=== PATIENT | male | born 1965 | race Caucasian/White ===

== ENCOUNTER → 2025-02-16 | Outpatient (CLI) | payer BC, SELFPAY ==
[2025-02-16 13:03] LABS: Hematocrit 41.6 % (40-54); Hemoglobin 14.4 g/dL (13.0-16.5); Immature Granulocytes Count 0.020 X10^3/uL (0.0-0.0); Mean Corp Hgb Conc 34.6 g/dL (32-36); Mean Corpuscular Volume 87.6 fL (80-94); NRBC Flagged by Analyzer 0 % (0-5); POSITIVE COUNT YES; RBC Distribution Width CV 11.8 % (11.6-14.6); RBC Distribution Width SD 37.6 fl (35.1-43.9); Red Blood Count 4.75 M/mm3 (4.6-6.2); White Blood Count 5.9 K/mm3 (4.4-11.0)
[2025-02-16 13:47] LABS: Differential Indicated SCAN CRITERIA MET
[2025-02-16 13:59] LABS: Anion Gap 11 (5-15); BUN 15 mg/dL (4-19); BUN/Creat Ratio 13.8 RATIO (10-20); Calcium,Total 9.6 mg/dL (7.6-11.0); Carbon Dioxide 25.7 mmol/L (21.0-32.0); Chloride 102 mmol/L (98-108); Glucose 93 mg/dL (70-99); Potassium 4.5 mmol/L (3.3-5.1)
== END | disposition home or self-care (01) ==
LOC: LAB 12:38
PROVIDERS: PCP Family Medicine; Referring Provider Internal Medicine Cardiovascular Disease; Visit Provider Internal Medicine Cardiovascular Disease
DX: R93.1 Abnormal findings on diagnostic imaging of heart and coronary circulation (principal); E78.5 Hyperlipidemia, unspecified; R01.1 Cardiac murmur, unspecified
CPT/HCPCS: 36415; 80048; 85025

== ENCOUNTER 2025-02-25 07:03 | Outpatient (CLI) | payer BC, SELFPAY ==
--- NOTE | 2025-02-25 07:07 | ECHOTEE_ITS ---
Reason For Study Reason For Study: Murmur, Mitral Insufficiency Medication BHUMIKA probe 6VT-D (SN [id number]) passed without difficulty. No complications were noted. Cetacaine Topical Honeydew given X3 orally. Versed 2 mg given slow IVP. Fentanyl 50 mcg given slow IVP. Performed a rapid injection of agitated mix of 9 cc saline and 1cc air to assess for atrial septal defect. Left Ventricle Normal LV size. The left ventricular ejection fraction is 60 %. No regional wall motion abnormalities noted. Right Ventricle Normal RV size. Normal systolic function. Atria Intact atrial septum. Normal left atrium. No thrombus is detected in the left atrial appendage. Normal right atrium. Probable chiari network. Mitral Valve Severe mitral valve prolapse, posterior leaflet. Moderately severe (3+) anteriorly directed mitral valve insufficiency. Tricuspid Valve Normal tricuspid valve. Aortic Valve Trisinus/trileaflet aortic valve. Pulmonic Valve Normal pulmonic valve. Vessels Normal aortic root. Normal arch. The pulmonary artery is normal size. Pulmonary venous flow normal. Pericardium No pericardial effusion. ECHO/Echo Transesophageal (BHUMIKA) Interpretation Summary Normal LV size. The left ventricular ejection fraction is 60 %. Intact atrial septum Severe mitral valve prolapse, posterior leaflet Moderately severe (3+) anteriorly directed mitral valve insufficiency. No thrombus is detected in the left atrial appendage. Ordering Physician: He Baeza Referring Physician: Oli Thompson Performed By: Amanda Mills RDCS
--- OUTSIDE RECORDS SUMMARY | 2025-02-25 07:15 | XMS RPT_ITS | CCD ---
Author Organization [facility] Care Team Providers Care Investigator Welfare Name Role Phone Cee Thompson MD Primary Care Provider Cee Tohmpson MD Primary Care Provider Podlogar GR[employer] 9 [employer]RU 12 VISITING TEACHER.DRIER HELPER, Asuncion Unavailable Knoble GR[employer] 12 VISITING TEACHER.DRIER HELPER, Samia Unavailable Donna LOMBARDI, Dr. Allison Primary Care Provider Dr. Keegan Thompson MD Referring Provider Aryan LOMBARDI, Dr. Cutler Attending Provider [phone] CEE THOMPSON Primary Care Unavailab le ASUNCION LEYVA Referring Unavailable CEE THOMPSON Primary Care Unavailab le CEE THOMPSON Attending Unavailab le CEE THOMPSON Primary Care Unavailab le CEE THOMPSON Referring Unavailab le CEE THOMPSON Primary Care Unavailab le CEE THOMPSON Referring Unavailab le CEE THOMPSON Primary Care Unavailab AIDA Mclaughlin Attending Unavailable CEE THOMPSON Referring Unavailab le SELF Referring Unavailable CEE THOMPSON Primary Care Unavailab le CEE THOMPSON Attending Unavailab le CEE THOMPSON Referring Unavailab le CEE THOMPSON Primary Care Unavailab yadira Baeza MD, Dr. Cutler Referring Provider [phone] He Baeza Attending Unavailable Keegan Thompson Primary Care Unavailable Keegan Thompson Referring Unavailable He Baeza Attending Unavailable He Baeza Referring Unavailable Keegan Thompson Primary Care Unavailable He Baeza Attending Unavailable He Baeza Referring Unavailable Keegan Thompson Primary Care Unavailable Medications Current Medications Medication Drug Class(es) Dates Sig (Normalized) Sig (Original) atorvastatin 10 mg oral tablet (13 sources) HMG-CoA Reductase Inhibitor Start: 02-10-2025 take 1 tablet by mouth once daily Atorvastatin (Lipitor) 10 mg tablet Active 10 mg PO daily February 10, 2025 12:00am Start: 11-02-2024 End: 01-31-2025 take 1 tablet by mouth once daily Atorvastatin (Lipitor) 10 mg tablet Active 10 mg PO daily February 10, 2025 12:00am polyethylene glycol 3350 253662 mg / potassium chloride 2970 mg / sodium bicarbonate 6740 mg / sodium chloride 5860 mg / sodium sulfate 47059 mg powder for oral solution (2 sources) Osmotic Laxative Start: 02-08-2025 End: 02-08-2025 peg 3350-Electrolytes (GOLYTELY) 236-22.74-6.74 -5.86 gram suspension Indications: Screening for colon cancer Take 4,000 mL by mouth one time only for 1 dose. Refer to printed prep instructions from your provider. 4000 mL 02/08/2025 02/08/2025 Active Problems Active Problems Problem Classification Problem Date Documented Date Episodic/Chronic Aortic; peripheral; and visceral artery aneurysms (6 sources) Ascending aorta dilatation; Translations: [Thoracic aortic ectasia] Onset: 02-08-2025 02-08-2025 Chronic Disorders of lipid metabolism (8 sources) Mixed hyperlipidemia; Translations: [Mixed hyperlipidemia] Onset: 01-27-2025 11-02-2024 Chronic Fluid and electrolyte disorders (2 sources) Hyperkalemia; Translations: [Hyperkalemia] Onset: 02-04-2025 01-31-2025 Episodic Heart valve disorders (7 sources) Mitral valve regurgitation; Translations: [Nonrheumatic mitral (valve) insufficiency] Onset: 02-18-2025 02-08-2025 Chronic Heart valve disorders (6 sources) Heart murmur; Translations: [Cardiac murmur, unspecified] Onset: 02-08-2025 11-01-2024 Episodic Other and unspecified benign neoplasm (3 sources) Lipoma of right upper limb; Translations: [Benign lipomatous neoplasm of skin and subcutaneous tissue of right arm] 01-27-2025 Episodic Other and unspecified benign neoplasm (3 sources) Lipoma of shoulder; Translations: [Benign lipomatous neoplasm of skin and subcutaneous tissue of left arm] 01-27-2025 Episodic Other and unspecified benign neoplasm (2 sources) Multiple lipomata; Translations: [Benign lipomatous neoplasm, unspecified] 02-10-2025 Episodic Other and unspecified benign neoplasm (1 source) Benign lipomatous neoplasm of skin and subcutaneous tissue of right arm; Translations: [Lipoma of right upper extremity] Onset: 01-27-2025 Episodic Other and unspecified benign neoplasm (1 source) Benign lipomatous neoplasm of skin and subcutaneous tissue of left arm; Translations: [Lipoma of left shoulder] Onset: 01-27-2025 Episodic Other screening for suspected conditions (not mental disorders or infectious disease) (4 sources) Echocardiogram abnormal; Translations: [Abnormal findings on diagnostic imaging of heart and coronary circulation] Onset: 02-08-2025 02-10-2025 Episodic Unclassified (1 source) Patient encounter status 11-01-2024 Past or Other Problems Problem Classification Problem Date Documented Da te Episodic/Chronic Hemorrhoids (12 sources) Thrombosed external hemorrhoids; Translations: [Perianal venous thrombosis] Onset: 11-18-2016 11-18-2016 Episodic Immunizations and screening for infectious disease (4 sources) Patient encounter status; Translations: [Encounter for immunization] Onset: 11-01-2024 11-01-2024 Episodic Malaise and fatigue (2 sources) Fatigue; Translations: [Other fatigue] Onset: 11-01-2024 11-01-2024 Episodic Other and unspecified benign neoplasm (12 sources) Lipoma of skin and subcutaneous tissue (excluding face); Translations: [Benign lipomatous neoplasm of skin and subcutaneous tissue of other sites] Onset: 01-22-2007 01-22-2007 Episodic Results Test Name Value Interpretation Reference Range Facility Absolute lymphocyte countOrd ered By: He Baeza on 02-16-2025 Lymphocytes Auto (Unsp spec) [#/Vol] 1.38 10*3/uL 0.83-4.51 [facility] Absolute neutrophil countOrd ered By: He Aryan on 02-16-2025 Neutrophils (Bld) [#/Vol] 4.0 10*3/uL 2.0-7.7 [facility] Anion gap in Serum or Plasma Ordered By: Daggett Aryan on 02-16-2025 Anion gap [Moles/Vol] 11 mmol/L 5-15 [facility] Automated lymphocyte count a s percentage of total leukocytesOrdered By: He Aryan on 02-16-2025 Lymphocytes/100 WBC Auto (Unsp spec) 23.4 % 19-41 [facility] BUN/creatinine ratioOrdered By: He [facility] on 02-16-2025 Urea nitrogen/Creatinine [Mass ratio] 13.8 mg/mg 10- [facility] Basic Metabolic Profile (BMP )on 02-16-2025 BUN/CRE 13.8 RATIO Normal - [facility] Comment on above: Performed By: #### L 500.2500, L100.0100 #### [facility] [address] [place], [address] Calcium [Mass/Vol] 9.6 mg/dL Normal 7.6-11.0 [facility] Comment on above: Performed By: #### L 500.2500, L100.0100 #### [facility] [address] [place], [address] Chloride [Moles/Vol] 102 mmol/L Normal 98-108 [facility] Comment on above: Performed By: #### L 500.2500, L100.0100 #### [facility] [address] [place], [address] CO2 [Moles/Vol] 25.7 mmol/L Normal 21.0-32.0 [facility] Comment on above: Performed By: #### L 500.2500, L100.0100 #### [facility] [address] [place], [address] Creatinine [Mass/Vol] 1.09 mg/dL Normal 0.70-1.20 [facility] Comment on above: Performed By: #### L 500.2500, L100.0100 #### [facility] [address] [place], [address] GAP 11 Normal 5-15 [facility] Comment on above: Performed By: #### L 500.2500, L100.0100 #### [facility] [address] [place], [address] GFR/1.73 sq M.predicted among non-blacks MDRD (S/P/Bld) [Vol rate/Area] 78 mL/min/{1.73_m2} Normal >60 [facility] Comment on above: Result Comment: mL/m in/1.73m2 CKD-EPI Creatinine Equation (2020) Performed By: #### L 500.2500, L100.0100 #### [facility] [address] [place], [address] Glucose [Mass/Vol] 93 mg/dL Normal 70-99 [facility] Comment on above: Performed By: #### L 500.2500, L100.0100 #### [facility] [address] [place], [address] Potassium [Moles/Vol] 4.5 mmol/L Normal 3.3-5.1 [facility] Comment on above: Result Comment: Hemo lysis present, Results??could be affected. ?? Performed By: #### L 500.2500, L100.0100 #### [facility] [address] [place], [address] Sodium [Moles/Vol] 138 mmol/L Normal 133-145 [facility] Comment on above: Performed By: #### L 500.2500, L100.0100 #### [facility] [address] [place], [address] Urea nitrogen [Mass/Vol] 15 mg/dL Normal 4-19 [facility] Comment on above: Performed By: #### L 500.2500, L100.0100 #### [facility] [address] [place], [address] Basophil percentageOrdered B y: He Baeza on 02-16-2025 Basophils/100 WBC (Bld) 0.8 % 0-1 [facility] CBC W/Diff, Automatedon 07 PLT EST ADEQUATE Normal ADEQ [facility] Comment on above: Performed By: #### L 500.2500, L100.0100 #### [facility] [address] [place], [place], [address] [facility]-20[facility] ([id number]) 1965 M Date Time Provider Department 02/16/25 CEE THOMPSON [facility] During your visit today, we recorded the following information about you: Cee Thompson MD 02/16/2025 12:46 PM Signed 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 Planning on heart cath and then repair. Allergies As of Date: 02/16/2025 (No Known Allergies) Date Reviewed: 02/08/2025 Reviewed by: Aida Vanegas APRN.[facility] - Fully Assessed Prescriptions as of 02/16/2025 - atorvastatin (LIPITOR) 10 mg tablet Take 1 tablet by mouth once daily. Problem List As Of Date 02/16/2025 Noted Resolved LIPOMA OTHER SKIN AND SUBCUTANEOUS [D17.39] 01/22/2007 External hemorrhoid, thrombosed [K64.5] 11/18/2016 Ascending aorta dilation [I77.810] 02/08/2025 Mitral valve regurgitation [I34.0] Encounter Status:Closed by CEE THOMPSON on 02/16/25 Normal [facility] Carbon dioxide, total [Moles /volume] in Central venous bloodOrdered By: He Baeza on 02-16-2025 CO2 [Moles/Vol] 25.7 mmol/L 21.0-32.0 [facility] Cardiology Visit Reporton Cardiology Visit Report [facility] [address] [place] [address] OFFICE VISIT Date of Service: 02/16/25 MR#: [id number] Acct: [id number] Name: MIGUEL MONACO Jr. Rep #: [id number] : 1965 Provider: Dr. He Baeza MD Age/Sex: 59/M Location: [facility] Status: Signed HPI HPI History of Present Illness Details: Pleasant 59-year-old man with no previous cardiac history who said that his primary care physician heard a murmur and so sent him for an echocardiogram. He denies any chest pain or shortness of breath or paroxysmal nocturnal dyspnea pedal edema he has had no neck arm or jaw discomfort suggest angina he exercises routinely and regularly on the treadmill. His lipid profile has demonstrated total cholesterol 176 HDL of 66 and LDL of 400. The echocardiogram did demonstrate normal left ventricular size and function with an estimated ejection fraction of 59% normal RV size and function the left atrial size was normal and there was moderately severe holosystolic mitral regurgitation with a possible flail leaflet. This jet was anteriorly directed and there was no evidence of thickening. The aorta was also mildly dilated at 4 cm. He has had no previous hypertension. On his visit here he reiterates no symptoms his electrocardiogram demonstrates sinus bradycardia with a first-degree AV block at a rate of 55 bpm is noted. He does have a 3/6 to 4/6 holosystolic murmur noted at the apex radiating to the axilla. Intake Vital Signs 02/16/25 11:39 Height 6 ft Weight: 182 lb BMI 24.7 BP 142/88 H Blood Pressure Location Lt brachial Position Sitting Respiration 16 Pulse 57 L Pulse Source Monitor Intake Visit Reasons: ABN ECHO (DONNA) Installation Tech Required: No Accompanied by: Significant Other Is patient in pain?: No Allergies No Known Allergies Allergy (Verified 02/16/25 11:42) Medications ???Medication ???Instructions ???Recorded ???Confirmed ???Type atorvastatin 10 mg tablet (Lipitor) 10 mg PO QDAY 02/10/25 02/16/25 History PFSH Medical History Abnormal echocardiogram Hyperlipidemia Multiple lipomas Systolic murmur Surgical History History of repair of anterior cruciate ligament of right knee Family History Grandfather Cancer Aunt Colon cancer Social History Smoking Status: Never smoker alcohol intake: current alcohol intake frequency: a few times a month substance use type: does not use ROS Const Const: Positive for fatigue; Negative for weakness, headache(s), daytime sleepiness or difficulty sleeping ENT ENT: Negative for headache(s), dizziness or Nosebleed/epistaxis Cardio Chest Pain: No Palpitations: No Edema: None Resp Respiratory: Negative for SOB with activity, SOB at rest, SOB orthopnea SOB lying down or Cough GI GI: Negative nausea, vomiting or heartburn Neuro Neuro: Negative for dizziness, lightheadedness, near syncope, headache(s) or weakness Endo Endo: Positive for fatigue Cardiology Exam Const Appearance: cooperative, healthy appearing, no acute distress, well developed and well groomed Nutritional Appearance: average body habitus and well nourished Orientation: alert, awake and oriented x3 Head Head: normal to inspection, normocephalic and atraumatic Ears: hearing grossly normal bilaterally and external ears normal Nose: external nose normal, nares normal, nasal mucous membranes and turbinates normal, septum normal and no nasal discharge Face and Sinus: face symmetric Mouth: oral mucosae normal, tongue normal, oropharynx normal and moist mucous membranes Teeth and gingiva: dentition normal Throat: posterior oropharynx normal, tonsils normal and uvula midline Eyes General: appearance normal, both eyes and all related structures Eyelids: eyelids normal Conjunctivae: conjunctivae normal Pupils: PERRL, normal by confrontation and accommodation normal EOM: EOM intact bilaterally Neck Neck: normal visual inspection, trachea midline and no JVD JVD: +5 Carotids: normal carotid upstroke and bounding pulses Chest Chest inspection: normal inspection of the chest, symmetric chest movement and normal respiratory effort Auscultation: Bilateral: Clear to Auscultation Cardio Palpation: normal PMI Rate: regular rate Rhythm: regular rhythm Heart sounds: S1 normal, S2 normal, murmur and normal, physiologic split S2; Negative rub or gallop Murmur: Grade 4/6, holosystolic, apex and axilla GI GI: normal to inspection, soft, no hepatosplenomegaly and bowel sounds present Neuro General: patient alert, patient awake, patient or (more content not included)... Normal [facility] Chloride assayOrdered By: Kiko Baeza on 02-16-2025 Chloride [Moles/Vol] 102 mmol/L 98-108 [facility] Eosinophil percentageOrdered By: He Baeza on 02-16-2025 Eosinophils/100 WBC (Bld) 0.7 % 0-5 [facility] Erythrocyte distribution wid th ratioOrdered By: He Baeza on 02-16-2025 Erythrocyte distribution width (RBC) [Ratio] 11.8 % 11.6-14.6 [facility] Erythrocyte distribution wid th standard deviationOrdered By: He Baeza on 02-16-2025 Erythrocyte distribution width (RBC) [Ratio] 37.6 fl 35.1-43.9 [facility] Glomerular filtration rate ( GFR) estimation/1.73 sq m using serum, plasma, or whole bOrdered By: He Baeza on 02-16-2025 GFR/1.73 sq M.predicted among non-blacks MDRD (S/P/Bld) [Vol rate/Area] 78 mL/min/{1.73_m2} >60 [facility] Comment on above: mL/min/1.73m2 CKD-EP I Creatinine Equation (2020) Hematocrit Auto (Bld) [Volum e fraction]Ordered By: He Baeza on 02-16-2025 Hematocrit (Bld) [Volume fraction] 41.6 % 40-54 [facility] Hemoglobin measurementOrdere d By: He Baeza on 02-16-2025 Hemoglobin (Bld) [Mass/Vol] 14.4 g/dL 13.0-16.5 [facility] Immature granulocytes/100 WB C Auto (Bld)Ordered By: He Baeza on 02-16-2025 Immature granulocytes/100 WBC (Bld) 0.300 % 0.0-0.9 [facility] Comment on above: IG% - Immature Granu locytes (promyelocytes, myelocytes and metamyelocytes) > 1% indicates that a LEFT SHIFT is Present. MCV (mean corpuscular volume ) determinationOrdered By: Daggett Aryan on 02-16-2025 MCV (RBC) [Entitic vol] 87.6 fL 80-94 [facility] Mean corpuscular hemoglobin (MCH) determinationOrdered By: He Aryan on 02-16-2025 MCH (RBC) [Entitic mass] 30.3 pg 27.0-32.0 [facility] Mean corpuscular hemoglobin concentration (MCHC) determinationOrdered By: He Aryan on 02-16-2025 MCHC (RBC) [Mass/Vol] 34.6 g/dL 32-36 [facility] Monocyte percentageOrdered B y: He Aryan on 02-16-2025 Monocytes/100 WBC (Bld) 6.3 % 0-10 [facility] Neutrophil percentageOrdered By: Daggett Aryan on 02-16-2025 Neutrophils/100 WBC (Bld) 68.5 % 47-70 [facility] Nucleated red blood cell per centageOrdered By: He Aryan on 02-16-2025 Nucleated RBC/100 WBC (Bld) [Ratio] 0 % 0-5 [facility] Platelet countOrdered By: Cy ril Aryan on 02-16-2025 Platelet count See comment [id number] [facility] Comment on above: Please note: For thi s sample, a platelet estimate is provided rather than a platelet count due to platelet clumping. Other parameters associated with this sample are not affected by platelet clumping. If a more accurate platelet count is required, a redraw of the patient will be necessary. Platelet estimateOrdered By: Hewilliam Baeza on 02-16-2025 Platelets LM Ql (Bld) ADEQUATE ADEQ [facility] Potassium measurement (mass/ volume)Ordered By: Hekomal Baeza on 02-16-2025 Potassium (Unsp spec) [Mass/Vol] 4.5 mmol/L 3.3-5.1 [facility] Comment on above: Hemolysis present, R esults could be affected. RBC Auto (Bld) [#/Vol]Ordere d By: He Baeza on 02-16-2025 RBC (Bld) [#/Vol] 4.75 10*6/uL 4.6-6.2 [facility] Serum creatinine measurement (mass/volume)Ordered By: He Aryan on 02-16-2025 Creatinine [Mass/Vol] 1.09 mg/dL 0.70-1.20 [facility] Serum glucose measurement (m ass/volume)Ordered By: Daggett Aryan on 02-16-2025 Glucose [Mass/Vol] 93 mg/dL 70-99 [facility] Serum or plasma calcium cooper urement (mass/volume)Ordered By: He Aryan on 02-16-2025 Calcium [Mass/Vol] 9.6 mg/dL 7.6-11.0 [facility] Serum or plasma urea nitroge n measurement (mass/volume)Ordered By: He Aryan on 02-16-2025 Urea nitrogen [Mass/Vol] 15 mg/dL 4-19 [facility] Sodium levelOrdered By: [facility] komal Baeza on 02-16-2025 Sodium [Moles/Vol] 138 mmol/L 133-145 [facility] White blood cell (WBC) count Ordered By: Daggett Aryan on 02-16-2025 WBC (Bld) [#/Vol] 5.9 10*3/uL 4.4-11.0 [facility] CNOVon 02-08-2025 CNOV Office Visit (GENSWS ) MIGUEL MONACO ([id number]) 1965 M Date Time Provider Department 02/08/25 10:30 AM AIDA VANEGAS During your visit today, we recorded the following information about you: Temperature Pulse Blood pressure Weight 97.5 degrees 57/minute 124/86 82.9 kg Height 1.829 m Aida Vanegas APRN.[facility] 02/08/2025 10:29 AM Signed HISTORY AND PHYSICAL Miguel Monaco : 1965 REFERRING PHYSICIAN: Cee Thompson [address] [facility] [address] CHIEF COMPLAINT: Patient presents with: Consult: colonoscopy HPI: Miguel is a 59 year old male referred for endoscopy. Miguel notes due for colon cancer screening. Miguel denies abdominal pain. Miguel denies diarrhea. Miguel denies constipation. Miguel denies a change in bowel habits. Miguel denies melena. Miguel denies bright red blood per rectum. Miguel denies hemorrhoids. Miguel notes family history of colon issues. Paternal aunt with colon cancer Miguel denies heartburn. Miguel denies dysphagia. Miguel denies a history of ulcers/ peptic ulcer disease. Miguel has undergone prior endoscopy. Last colonoscopy was 08/[address] Dong at [facility]. Sedation: Fentanyl 100 micrograms IV, Midazolam 5 mg IV Impression: - The entire examined colon is normal. - No specimens collected. Current Outpatient Medications Medication Sig atorvastatin (LIPITOR) 10 mg tablet Take 1 tablet by mouth once daily. peg 3350-Electrolytes (GOLYTELY) 236-22.74-6.74 -5.86 gram suspension Take 4,000 mL by mouth one time only for 1 dose. Refer to printed prep instructions from your provider. No current facility-administered medications for this visit. ALLERGIES: Patient has no known allergies. PAST MEDICAL HISTORY Diagnosis Date Hyperlipidemia Multiple lipomas Systolic murmur Tinea cruris PAST SURGICAL HISTORY Procedure Laterality Date COLONOSCOPY FLX DX W/COLLJ SPEC WHEN PFRMD 09/15/2017 Colonoscopy repeat 5 years PAST SURGICAL HISTORY OF 1995 right knee Acl repair REM LESION TRUNK,ARM,LEG 0.6 -1.0CM 02/10/07 Left mid forearm lipoma excision FAMILY HISTORY Problem Relation Age of Onset No Known Problems Mother No Known Problems Sister No Known Problems Sister No Known Problems Brother Prostate Cancer Maternal Grandfather No Known Problems Daughter No Known Problems Daughter No Known Problems Daughter No Known Problems Son Colon Cancer Paternal Aunt Social History Tobacco Use Smoking status: Never Smokeless tobacco: Never Vaping Use Vaping status: Never Used Substance Use Topics Alcohol use: Yes Comment: 2-3 drinks per month Drug use: No PHYSICAL EXAMINATION: General: The patient is 59 year old, male well nourished, well hydrated in no acute distress. The patient is oriented to time, place, and person. VITALS: Blood pressure 124/86, pulse (!) 57, temperature 36.4 ?C (97.5 ?F), height 182.9 cm (6'), weight 82.9 kg (182 lb 12.8 oz), SpO2 97%. Body mass index is 24.79 kg/m?. HEENT: Normal cephalic, ataumatic, pupils are equally round, sclera are anicteric, mucous membranes are moist, oropharynx is clear. Neck has no masses or asymmetry . Respiratory: Clear to auscultation. Cardiac: Regular rate and rhythm. Abdominal exam: Soft, nontender, with no palpable masses. No hepatosplenomegaly. No palpable hernias. Extremities: no clubbing or cyanosis LABORATORY VALUES: As Noted RADIOLOGIC STUDIES: As Noted Assessment IMPRESSION: screen for colon cancer PLAN: I have reviewed my findings with the surgeon. Will plan for lower endoscopy. We discussed the risks and benefits of the planned endoscopy in terms understandable to the patient. I have informed the patient that complications can occur including failure to complete the endoscopy and perforation. Miguel had the opportunity to ask questions concerning the planned endoscopy. Miguel freely consents to surgery. I plan to use Golytely bowel preparation I have explained to the patient the difference between IV conscious sedation and MAC anesthesia - and I have offered either, according to the patient's wishes. I have explained that with IV conscious sedation there is no anesthesia provider available and therefore there is a limitation of the amount of IV medications that can be given and that the patient may wake up in the middle of the procedure and/or experience pain/discomfort during the procedure. Further discussion was done and the patient was given the opportunity to ask questions and all questions were answered. Miguel chooses IV conscious sedation. Miguel was counseled that if there are changes in his/her medical condition, to let the office know if surgery should proceed. If there are changes in patient's medical condition from time of this encounter to the day of the procedure that preclude anesthesia, patient damaris (more content not included)... Normal [facility] Amanda 02-08-2025 KWASIN Telephone (PANTourMattersO) MIGUEL MONACO ([id number]) 1965 M Date Time Provider Department 02/08/25 AIDA VANEGAS During your visit today, we recorded the following information about you: Christine Farley LPN 02/08/2025 2:10 PM Signed Patient's is calling, patient had ECHO completed today. Results came back Mitral valve regurgitation. Patient and are wanting to know if colonoscopy is needing cancelled for next Friday? Please review and advise further CARLOS Bazan Kimberly, LPN 02/08/2025 3:59 PM Signed Aida Vanegas APRN.DRIER HELPER [facility] General [facility] [place] minutes ago (2:51 PM) KB Please let him know that we will post pone colonoscopy until he meets with Cardiology and they decide the next steps. If they decide to do a valve repair we will wait until after this is complete. Please cancel his colonoscopy for next Friday. Thank you, Aida Vanegas APRN.DRIER HELPER Called Mariluz. Verified name and date of Mariluz informed- verbalizes understanding. 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 CARLOS Reina Sherrie 02/09/2025 9:25 AM Signed Spouse was transferred to me from PCP office as they called to let patient know he could proceed with Colonoscopy as long as completed at [place] in hospital setting. Please advise spouse Joan Saenz 02/09/2025 11:[address] another order. The original is gone due to cancellation. Thank You Ileana Javier MA 02/09/2025 2:29 PM Signed This is for a screening colonoscopy. Pt can complete cardiology work up and then get schedule for colonoscopy. IF he develops any concerning GI symptoms warranting urgent endoscopy then we can move forward with more urgency. If PCP would like to place the colonoscopy order to be completed in [place] he can but my surgeons will agree that if it is a screening colonoscopy the patient should be evaluated by cardiology prior to moving forward. There is also the consideration that the patient goes to [facility] and gets cancelled because cardiology work up is not complete. Aida Vanegas APRN.Ileana Locke MA 02/09/2025 2:30 PM Signed PCP placed order for referral to [facility] per pt request. Ileana Javier MA Allergies As of Date: 02/08/2025 (No Known Allergies) Date Reviewed: 02/08/2025 Reviewed by: Aida Vanegas APRN.KWASI - Fully Assessed Reason for Visit: Appointment [186] Returning Patient's Call [[phone]] Prescriptions as of 02/09/2025 - atorvastatin (LIPITOR) 10 mg tablet Take 1 tablet by mouth once daily. Problem List As Of Date 02/08/2025 Noted Resolved LIPOMA OTHER SKIN AND SUBCUTANEOUS [D17.39] 01/22/2007 External hemorrhoid, thrombosed [K64.5] 11/18/2016 Ascending aorta dilation [I77.810] 02/08/2025 Mitral valve regurgitation [I34.0] Encounter Status:Closed by MIRIAM ONTIVEROS on 02/08/25 [facility] CNPN Telephone (FAMPWS) MIGUEL MONACO ([id number]) 1965 M Date Time Provider Department 02/08/25 CEE THOMPSON During your visit today, we recorded the following information about you: Meme Lam, RN 02/08/2025 4:20 PM Signed Patient's calls and states that the soonest patient can get in within the [facility] was 06/01/2025 and that is in [facility]. asking if this is ok or do they need to start looking outside of [facility]? Please review and advise, NAYAN iGll Christopher B, MD 02/09/2025 7:42 AM Signed Can we check with [facility] cardiology for their availability? Amy Purcell MA 02/09/2025 9:54 AM Signed Referral faxed to Dr. Baeza with [facility] per 's request. See other phone message. DAMARIS Woody Sherrie, RN 02/09/2025 4:59 PM Addendum Pt's Mariluz calling in and would like Dr. Thompson to know that Dr. Baeza will be seeing patient next Friday02/16/25. also updated of General Surgery note in other 02/08 encounter stating that pt's colonoscopy should be postponed until he meets with Cardiology. NAYAN Joy Christopher B, MD 02/10/2025 6:58 AM Signed Reviewed. Allergies As of Date: 02/08/2025 (No Known Allergies) Date Reviewed: 02/08/2025 Reviewed by: Aida Vanegas APRN.DRIER HELPER - Fully Assessed Reason for Visit: Patient Question [8177] Prescriptions as of 02/10/2025 - atorvastatin (LIPITOR) 10 mg tablet Take 1 tablet by mouth once daily. Problem List As Of Date 02/08/2025 Noted Resolved LIPOMA OTHER SKIN AND SUBCUTANEOUS [D17.39] 01/22/2007 External hemorrhoid, thrombosed [K64.5] 11/18/2016 Ascending aorta dilation [I77.810] 02/08/2025 Mitral valve regurgitation [I34.0] Encounter Status:Closed by AMY PURCELL on 02/09/25 Normal [facility] ECHOon 02-08-2025 Echocardiography Echocardiography Report: Transthoracic Echo [facility] Date of service: 02/08/2025 8:31:03 AM ASSOCIATE JUDGE Ordering physician: CEE THOMPSON Exam indication: Cardiac murmur Technologist: Meme [facility] Interpreting physician: Shanell Islas MD PATIENT: Name: MR. MIGUEL MONACO : 1965 Age: 59 years Gender: M Primary rhythm: sinus. Height: 179.20 cm BSA: 2.11 m Weight: 89.45 kg BMI: 27.9 kg/m Heart rate 50 bpm Blood pressure 149/83 mmHg Color Doppler was utilized to interrogate the cardiac valves assessed and spectral Doppler was utilized to determine the flow velocities and pressure gradients reported in this exam. Myocardial strain analysis was performed in this exam to aid in the assessment of cardiac function. MEASUREMENTS: Value Indexed Normal Max aortic dimension 4.0 cm Ao < 3.8 Left atrial volume 64 ml (biplane A-L) 31 ml/m Carly <= 34 LV ID (diastole) 4.6 cm (2D) 2.18 cm/m LV ID (systole) 3.2 cm (2D) 1.52 cm/m IVS, leaflet tips 1.2 cm (2D) Posterior wall thickness 1.2 cm (2D) Left ventricular mass 197 g (2D) 93 g/m Global peak long strain -19.1 % LV stroke volume 78 ml (2D biplane) LV end diastolic volume 132 ml (2D biplane) 62.8 ml/m 34<=EDVi<75 LV end systolic volume 54 ml (2D biplane) 25.6 ml/m Ejection Fraction 59 % (2D biplane) EF > 52 FINDINGS: LEFT VENTRICLE The left ventricle is normal in size. There is mild concentric left ventricular hypertrophy. Left ventricular systolic function is normal. Global LV myocardial strain is normal. Left ventricular diastolic function was not evaluated due to >2+ MR. Mitral annular lateral E/e': 5.8. Mitral annular septal E/e': 6.8. Wall Motion: All scored segments are normal. RIGHT VENTRICLE The right ventricle is normal in size. Right ventricular systolic function is normal. RV systolic tissue Doppler velocity is 12.0 cm/s. Tricuspid annular displacement is 1.9 cm. Estimated right atrial pressure is 3 mmHg (although IVC not seen). LEFT ATRIUM The left atrial cavity is normal in size. Pulmonary Veins: The pulmonary venous pattern showed reversed systolic flow. RIGHT ATRIUM The right atrial cavity is normal in size. Inferior Vena Cava: The inferior vena cava appears normal measuring 1.5 cm. 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 There is a anteriorly directed regurgitant jet. There is no thickening. The pressure half time is 60 msec. The peak mitral E/A ratio is 0.98. The average mitral E/e' ratio is 6.3. The mitral flow deceleration time is 206 msec. TRICUSPID VALVE The tricuspid valve leaflets are structurally normal. There is no tricuspid valve regurgitation. AORTIC VALVE The aortic valve cusps are structurally normal. There is no aortic valve regurgitation. Tricuspid aortic valve. The peak gradient is 5 mmHg (peak velocity = 115.4 cm/s). PULMONIC VALVE The pulmonic valve cusps are structurally normal. There is no pulmonic valve regurgitation. AORTA The visualized aorta is borderline dilated. Measurements - Aortic valve annulus 2.1 cm. Mid ascending aorta 4.0 cm. Distal ascending aorta 3.8 cm. INTERATRIAL SEPTUM There is no evidence of intracardiac shunting as detected by Doppler. PERICARDIUM There is no pericardial effusion. CONCLUSIONS: - Exam indication: Cardiac murmur - The left ventricle is normal in size. There is mild concentric left ventricular hypertrophy. Left ventricular systolic function is normal. EF = 59 5% (2D biplane) Left ventricular diastolic function was not evaluated due to >2+ MR. - The right ventricle is normal in size. Right ventricular systolic function is normal. - The visualized aorta is borderline dilated with a maximal dimension of 4.0 cm. 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 - The patient has not had a prior CC echocardiographic exam for comparison. * * * Final * * * CC [employer] [facility] Image : [id number] Normal [facility] POTASSIUMon 02-04-2025 Potassium [Moles/Vol] 4.3 mmol/L Normal 3.7-5.1 [facility] Comment on above: Order Comment: Speci men Type: BLOOD SPECIMENOrdering Facility: [facility] Address: [address] [place] [address] [place] [address] Performed By: #### K 1 ####[facility] GORAN [id number] MELANY PINA [place] [id number] [place] CNPKami 02-01-2025 CNPN Telephone (FAMPWS) MIGUEL MONACO ([id number]) 1965 M Date Time Provider Department 02/01/[facility] During your visit today, we recorded the following information about you: Sunita Barnhart LPN 02/01/2025 9:12 AM Signed Patient Mariluz calling asking since at appt on 01/27/2025 said did not hear any heart murmur. Does her still have to complete the ECHO? She is asking because of the cost of all of the medical things he is having done. He is scheduled for the ECHO next week. Please advise Cee Thompson MD 02/01/2025 9:57 AM Signed He had a murmur on his initial appointment so I would recommend he continue with the echo as ordered. Amy Purcell MA 02/01/2025 2:04 PM Signed Patient's informed. Amy Purcell MA Allergies As of Date: 02/01/2025 (No Known Allergies) Date Reviewed: 01/27/2025 Reviewed by: CATHLEEN IGLESIAS - Fully Assessed Reason for Visit: Patient Question [9147] Prescriptions as of 02/01/2025 - atorvastatin (LIPITOR) 10 mg tablet Take 1 tablet by mouth once daily. Problem List As Of Date 02/01/2025 Noted Resolved LIPOMA OTHER SKIN AND SUBCUTANEOUS [D17.39] 01/22/2007 External hemorrhoid, thrombosed [K64.5] 11/18/2016 Encounter Status:Closed by AMY PURCELL on 02/01/25 Normal [facility] CNOVon 01-27-2025 CNOV Office Visit (FAMPWS ) MIGUEL MONACO ([id number]) 1965 M Date Time Provider Department 01/27/25 12:40 PM [facility] During your visit today, we recorded the following information about you: Pulse Respiration Blood pressure Weight 78/minute 12/minute 114/72 82.8 kg Cee Thompson MD 01/27/2025 1:02 PM Signed Chief Complaint Patient presents with: Derm Problem: Cysts on right arm and left neck areas Recording using [employer] software for draft documentation of the visit was discussed with the patient/authorized mechanical service representative; all questions welcomed and answered. Patient/authorized mechanical service representative agreed to proceed HPI Miguel Monaco is a 59 year old male who presents here today for Above Complaints. Lipomas: - Noted multiple lipomas on the right elbow and neck, initially pea-sized over a year ago, now approximately 3 cm each. - Gradual increase in size; reports a sensation of deflation followed by enlargement in the neck lipoma. - Mild tenderness when palpated; denies erythema, warmth, or drainage. - Previous lipoma excision performed. Hyperlipidemia: - Initiated on Lipitor; no adverse effects reported. - Adheres to a strict diet, avoiding red meat; reports increased energy and a 10 lb weight loss. - Inquires about the necessity of lifelong Lipitor use. Past medical history, appointments, medications, allergies reviewed. Previous Medical History PAST MEDICAL HISTORY Diagnosis Date Hyperlipidemia Multiple lipomas Systolic murmur Tinea cruris Previous Surgical History PAST SURGICAL HISTORY Procedure Laterality Date COLONOSCOPY FLX DX W/COLLJ SPEC WHEN PFRMD 09/15/2017 Colonoscopy repeat 5 years PAST SURGICAL HISTORY OF 1995 right knee Acl repair REM LESION TRUNK,ARM,LEG 0.6 -1.0CM 02/10/07 Left mid forearm lipoma excision Family History FAMILY HISTORY Problem Relation Age of Onset No Known Problems Mother No Known Problems Sister No Known Problems Sister No Known Problems Brother Prostate Cancer Maternal Grandfather No Known Problems Daughter No Known Problems Daughter No Known Problems Daughter No Known Problems Son Colon Cancer Paternal Aunt Patient Allergies ALLERGIES No Known Allergies Current Medications Current Outpatient Medications on File Prior to Visit Medication Sig atorvastatin (LIPITOR) 10 mg tablet Take 1 tablet by mouth once daily. No current facility-administered medications on file prior to visit. Social History Social History Tobacco Use Smoking status: Never Smokeless tobacco: Never Vaping Use Vaping status: Never Used Substance Use Topics Alcohol use: Yes Comment: 2-3 drinks per month Drug use: No Review of Symptoms REVIEW OF SYSTEMS See HPI EXAM: BP 114/72 Pulse 78 Resp 12 Wt 82.8 kg (182 lb 9.6 oz) BMI 25.79 kg/m? GENERAL: NAD, alert and oriented. SKIN: Unremarkable, no rash or skin lesions. Multiple lipomas noted, one approximately 3 cm on the right elbow and another approximately 3 cm on the neck. No signs of infection, erythema, or warmth. Lipomas are mobile and non-tender. LUNGS: Clear to auscultation bilaterally, no wheezes/rhonchi/rales. HEART: Regular rate and rhythm, no murmurs. No ectopy. Health Maintenance List Depression Screening Never done Anxiety Screening Never done Colorectal Cancer Screening due on 09/15/2022 Influenza Vaccine(1) due on 03/28/2025 Diabetes Screening due on 11/02/2027 Lipid Screening due on 11/01/2029 Prostate Cancer Screening Discussion due on 11/01/2029 DTaP,Tdap,Td Vaccine(2 - Td or Tdap) due on 11/01/2034 RSV Vaccine(1 - 1-dose 75+ series) due on 2039 Hepatitis C Screening Completed Shingrix Vaccine Completed Covid-19 Vaccine Completed Pneumococcal Vaccine: 50+ Completed HIV Screening Discontinued Data reviewed Latest Ref Rng 11/01/2024 WBC 3.70 - 11.00 k/uL 4.36 RBC 4.20 - 6.00 m/uL 4.83 Hemoglobin 13.0 - 17.0 g/dL 15.0 Hematocrit 39.0 - 51.0 % 43.6 MCV 80.0 - 100.0 fL 90.3 MCH 26.0 - 34.0 pg 31.1 MCHC 30.5 - 36.0 g/dL 34.4 RDW-CV 11.5 - 15.0 % 12.4 Platelet Count 150 - 400 k/uL 45 (L) MPV 9.0 - 12.7 fL 12.9 (H) Neut% % 63.0 Abs Neut (ANC) 1.45 - 7.50 k/uL 2.74 Lymph% % 24.5 Abs Lymph 1.00 - 4.00 k/uL 1.07 Allen% % 8.0 Abs Allen <0.87 k/uL 0.35 Eosin% % 3.2 Abs Eosin <0.46 k/uL 0.14 Baso% % 1.1 Abs Baso <0.11 k/uL 0.05 Immature Gran % % 0.2 IMMATURE GRANS (ABS) <0.10 k/uL <0.03 NRBC /100 WBC 0.0 Absolute nRBC <0.01 k/uL <0.01 DTYPE Auto Protein, Total 6.3 - 8.0 g/dL 7.0 Albumin 3.9 - 4.9 g/dL 4.5 Calcium 8.5 - 10.2 mg/dL 9.5 Bilirubin, Total 0.2 - 1.3 mg/dL 0.4 Alkaline Phosphatase 38 - 113 U/L 45 AST 14 - 40 U/L 19 ALT 10 - 54 U/L 20 Glucose 74 - 99 mg/dL 98 BUN 9 - 24 mg/dL 19 Creatinine 0.73 - 1.22 mg/dL 0.91 Sodium 136 - 144 mmol/L 139 Potas (more content not included)... Normal [facility] Comprehensive metabolic 2000 panelon 01-27-2025 Albumin [Mass/Vol] 4.3 g/dL Normal 3.9-4.9 [facility] Comment on above: Order Comment: Speci men Type: BLOOD SPECIMENOrdering Facility: [facility] Address: [address] [place] [address] Performed By: #### 2 4323-8, 80312-8 ####[facility] LABCLIA [id number] [address] STATES OF [facility] ALP [Catalytic activity/Vol] 43 U/L Normal 38-113 [facility] Comment on above: Order Comment: Speci men Type: BLOOD SPECIMENOrdering Facility: [facility] Address: [address] [place] [address] Performed By: #### 2 4323-8, 62312-5 ####[facility] LABCLIA [id number] [facility] [address] [address] [place] ALT [Catalytic activity/Vol] 18 U/L Normal 10-54 [facility] Comment on above: Order Comment: Speci men Type: BLOOD SPECIMENOrdering Facility: [facility] Address: [address] [place] [address] Performed By: #### 2 4323-8, 89120-1 ####[facility] LABCLIA [id number] [facility] [place] [id number] [place] Anion gap [Moles/Vol] 10 mmol/L Normal 8-15 [facility] Comment on above: Order Comment: Speci men Type: BLOOD SPECIMENOrdering Facility: [facility] Address: [address] [place] [address] Performed By: #### 2 4323-8, 28081-3 ####[facility] LABCLIA [id number] [facility] [place] [id number] [place] AST [Catalytic activity/Vol] 20 U/L Normal 14-40 [facility] Comment on above: Order Comment: Speci men Type: BLOOD SPECIMENOrdering Facility: [facility] Address: [address] [place], [place] [address] Performed By: #### 2 4323-8, 39087-6 ####[facility] LABCLIA [id number] [facility]ENUEL[facility] [place] [id number] [place] Bilirubin [Mass/Vol] 0.6 mg/dL Normal 0.2-1.3 [facility] Comment on above: Order Comment: Speci men Type: BLOOD SPECIMENOrdering Facility: [facility] Address: [address] [place], [place] [address] Performed By: #### 2 4323-8, 34913-1 ####[facility] LABCLIA [id number] [facility] [address] [place] [address] [place] Calcium [Mass/Vol] 9.5 mg/dL Normal 8.5-10.2 [facility] Comment on above: Order Comment: Speci men Type: BLOOD SPECIMENOrdering Facility: [facility] Address: [address] [place], [place] [address] Performed By: #### 2 4323-8, 88087-1 ####[facility] LABCLIA [id number] [facility] [address], [facility] [place] Chloride [Moles/Vol] 103 mmol/L Normal 98-107 [facility] Comment on above: Order Comment: Speci men Type: BLOOD SPECIMENOrdering Facility: [facility] Address: [address] [place] [address] Performed By: #### 2 4323-8, 95471-7 ####[facility] LABCLIA [id number] [address], [facility] [place] CO2 [Moles/Vol] 24 mmol/L Normal 22-30 [facility] Comment on above: Order Comment: Speci men Type: BLOOD SPECIMENOrdering Facility: [facility] Address: [address] [place] [address] Performed By: #### 2 4323-8, 23508-1 ####[facility] LABCLIA [id number] [facility] [place] [id number] [place] Creatinine [Mass/Vol] 1.05 mg/dL Normal 0.73-1.22 [facility] Comment on above: Order Comment: Speci men Type: BLOOD SPECIMENOrdering Facility: [facility] Address: [address] [place] [address] Performed By: #### 2 4323-8, 12604-5 ####[facility] LABCLIA [id number] [facility] [place] [id number] [place] Creatinine and Glomerular filtration rate.predicted panel (S/P/Bld) 81 mL/min/1.73m??? Normal >=60 [facility] Comment on above: Order Comment: Priti michele Type: BLOOD SPECIMENOrdering Facility: [facility] Address: [address] [place] [address] Result Comment: Reina mated Glomerular Filtration Rate (eGFR) is calculated using the 2020 CKD-EPI creatinine equation. This equation utilizes serum creatinine, sex, and age as parameters. The creatinine assay has traceable calibration to isotope dilution-mass spectrometry. Refer to KDIGO guidelines for clinical interpretation. In patients with unstable renal function, e.g. those with acute kidney injury, the eGFR may not accurately reflect actual GFR. Performed By: #### 2 4323-8, 31723-7 ####[facility] LABIA [id number] [place] [address] [place] Glucose [Mass/Vol] 98 mg/dL Normal 74-99 [facility] Comment on above: Order Comment: Priti michele Type: BLOOD SPECIMENOrdering Facility: [facility] Address: [address] [place] [address] Result Comment: The [place] Diabetes Association (ADA) provides guidance for cutoff values for fasting glucose and random glucose. The ADA defines fasting as no caloric intake for at least 8 hours. Fasting plasma glucose results between 100 to 125 mg/dL indicate increased risk for diabetes (prediabetes). Fasting plasma glucose results greater than or equal to 126 mg/dL meet the criteria for diagnosis of diabetes. In the absence of unequivocal hyperglycemia, results should be confirmed by repeat testing. In a patient with classic symptoms of hyperglycemia or hyperglycemic crisis, random plasma glucose results greater than or equal to 200 mg/dL meet the criteria for diagnosis of diabetes. Reference: Standards of Medical Care in Diabetes 2016, [place] [employer] Association. Diabetes Care. 2016.39(Suppl 1). Performed By: #### 2 4323-8, 43550-5 ####[facility] LABIA [id number] [place] [address] [place] Potassium [Moles/Vol] 5.2 mmol/L High 3.7-5.1 [facility] Comment on above: Order Comment: Priti michele Type: BLOOD SPECIMENOrdering Facility: [facility] Address: [address] [place] [id number] Performed By: #### 2 4323-8, 81045-6 ####[facility] LABIA [id number] [address] [address] [place] Protein [Mass/Vol] 6.9 g/dL Normal 6.3-8.0 [facility] Comment on above: Order Comment: Speci men Type: BLOOD SPECIMENOrdering Facility: [facility] Address: [address] [place] [address] Performed By: #### 2 4323-8, 14610-8 ####[facility] LABIA [id number] [place] [address] [place] Sodium [Moles/Vol] 137 mmol/L Normal 136-144 [facility] Comment on above: Order Comment: Speci men Type: BLOOD SPECIMENOrdering Facility: [facility] Address: [address] [place] [address] Performed By: #### 2 4323-8, 81710-3 ####[facility] LABIA [id number] [place] [id number] [place] Urea nitrogen [Mass/Vol] 26 mg/dL High 9-24 [facility] Comment on above: Order Comment: Speci men Type: BLOOD SPECIMENOrdering Facility: [facility] Address: [address] [place], [place] [address] Performed By: #### 2 4323-8, 92949-9 ####[facility] LABIA [id number] [place] [id number] [place] Lipid 1996 panelon 5 Cholesterol [Mass/Vol] 176 mg/dL Normal <200 [facility] Comment on above: Order Comment: Speci men Type: BLOOD SPECIMENOrdering Facility: [facility] Address: [address] [place], [place] [address] Result Comment: <200 mg/dL, Desirable 200-239 mg/dL, Borderline high >239 mg/dL, High Performed By: #### 2 4323-8, 77762-9 ####[facility] LABCLIA [id number] [place] [address] [place] Cholesterol in HDL [Mass/Vol] 66 mg/dL Normal >39 [facility] Comment on above: Order Comment: Speci men Type: BLOOD SPECIMENOrdering Facility: [facility] Address: [address] [place] [address] Result Comment: 40-5 9 mg/dL, Acceptable >59 mg/dL, High: Negative risk factor for coronary heart disease <40 mg/dL, Low: Positive risk factor for coronary heart disease Performed By: #### 2 4323-8, 96198-1 ####[facility] LABCLIA [id number] [address] [place] Cholesterol in LDL [Mass/Vol] 100 mg/dL High <100 [facility] Comment on above: Order Comment: Priti michele Type: BLOOD SPECIMENOrdering Facility: [facility] Address: [address] [place] [address] Result Comment: <100 mg/dL, Optimal 100-129 mg/dL, Near optimal/above optimal 130-159 mg/dL, Borderline high 160-189 mg/dL, High >189 mg/dL, Very high Secondary prevention optimal LDL Cholesterol levels are recommended to be <70 mg/dL LDL cholesterol is calculated using the Deleon-NIH equation. Performed By: #### 2 4323-8, 10107-4 ####[facility] LABIA [id number] [address] [address] [place] Cholesterol in LDL/Cholesterol in HDL [Mass ratio] 1.52 {ratio} Normal <2.54 [facility] Comment on above: Order Comment: Dominiquei men Type: BLOOD SPECIMENOrdering Facility: [facility] Address: [address] [place] [address] Result Comment: Refe eyadce: 1. National Cholesterol Education Program ATP III Guideline At-A-Glance Quick Desk Reference: National Heart, Lung, and Blood [place]. National Institutes of Health. 2001: NIH Publication No. 01-3305. 2. An International Atherosclerosis Society position paper: global recommendations for the management of dyslipidemia: executive summary, Atherosclerosis. 2014: 232(2):410-413. Performed By: #### 2 4323-8, 66662-6 ####[facility] LABCLIA [id number] [facility] [address] [address] [place] Cholesterol in VLDL [Mass/Vol] 8 mg/dL Normal <30 [facility] Comment on above: Order Comment: Speci men Type: BLOOD SPECIMENOrdering Facility: [facility] Address: [address] [place] [address] Performed By: #### 2 4328, ####[facility] LABCLIA [id number] [facility] [address] [place] Cholesterol non HDL [Mass/Vol] 110 mg/dL Normal <130 [facility] Comment on above: Order Comment: Dominiquei men Type: BLOOD SPECIMENOrdering Facility: [facility] Address: [address] [place] [address] Result Comment: <130 mg/dL, Optimal 130-159 mg/dL, Near optimal/above optimal 160-189 mg/dL, Borderline high 190-219 mg/dL, High >219 mg/dL, Very high Secondary prevention optimal non HDL Cholesterol levels are recommended to be <100 mg/dL Performed By: #### 2 8, ####[facility] LABCLIA [id number] [facility] [address] [place] [address] [place] Cholesterol.total/Choles terol in HDL [Mass ratio] 2.67 {ratio} Normal <5.10 [facility] Comment on above: Order Comment: Dominiquei men Type: BLOOD SPECIMENOrdering Facility: [facility] Address: [address] [place] [address] Performed By: #### 2 432-8, 46343-9 ####[facility] LABCLIA [id number] [place] [address] [facility] [place] FASTING TIME 10 hrs Normal [facility] Comment on above: Order Comment: Priti michele Type: BLOOD SPECIMENOrdering Facility: [facility] Address: [address] [place] [address] Performed By: #### 2 4323-8, 20271-2 ####[facility] LABCLIA [id number] [address] Triglyceride [Mass/Vol] 50 mg/dL Normal <150 [facility] Comment on above: Order Comment: Speci men Type: BLOOD SPECIMENOrdering Facility: [facility] Address: [address] [place] [address] Result Comment: <150 mg/dL, Normal 150-199 mg/dL, Borderline high 200-499 mg/dL, High >499 mg/dL, Very high Performed By: #### 2 4323-8, 80641-3 ####[facility] LABCLIA [id number] [place] [address] [facility] [place] CNPNon 11-02-2024 CNPN Telephone (FAMPWS) MIGUEL MONACO ([id number]) 1965 M Date Time Provider Department 11/02/24 CEE THOMPSON [facility] During your visit today, we recorded the following information about you: Cee Thompson MD 11/02/2024 7:26 AM Signed Patient's platelet count is again low. We obtained citrated peptide which shows no clot detected, but platelets are clumped. I am not sure what they mean by estimate low and would like to speak with lab about this. It either means the 45 reading is low and not accurate, or the platelets are actually low and I need to know which. What number do I call to get clarification? Aleah Quinones LPN 11/02/2024 10:24 AM Signed Contacted [facility] lab client services and spoke with [place]. She gave phone number for Brooklynn Khalil she is medical radiation tech of hematology. Number is [phone]. CARLOS Roman Christopher B, MD 11/02/2024 10:31 AM Signed Called and spoke with nurse at Dr. Khalil's office. [place] the [place]. They are going to call and have alternative physician call me on cell phone with more information. Cee Thompson MD 11/02/2024 11:50 AM Addendum Called by hematology Dr. De León regarding low platelets. On her review, platelets are clumped but appear normal or low normal. Not in range to cause spontaneous bleeding. I would not make any changes to his regimen or refer him to hematology based on this report. Other labs are normal aside from high cholesterol. Based on age and risk factors, patient is moderate risk for heart attack or stroke in the next 10 years. Recommend moderate intensity statin daily and recheck labs in 3 months. Most common side effect: muscle aches. If agreeable, will send rx to requested pharmacy. The 10-year ASCVD risk score (Beata DK, et al., 2019) is: 7.9% Values used to calculate the score: Age: 59 years Sex: Male Is Non- : No Diabetic: No Tobacco smoker: No Systolic Blood Pressure: 122 mmHg Is BP treated: No HDL Cholesterol: 69 mg/dL Total Cholesterol: 255 mg/dL Veronica Norris RN 11/02/2024 1:17 PM Signed Pt called and is notified of providers results and instructions. Pt voices understanding. Pt ok with provider calling in Statin, please send to [facility] in [place], do not need to call Pt back. NAYAN Barber Julie, APRN.KWASI 11/02/2024 3:21 PM Signed Prescription sent for atorvastatin - take one pill at bedtime. Repeat cholesterol fasting in 3 months. Asuncion Leyva APRN.Veronica Pearson RN 11/02/2024 3:30 PM Signed Pt called and is notified of providers message and instructions. Pt voices understanding. Veronica Norris RN Allergies As of Date: 11/02/2024 (No Known Allergies) Date Reviewed: 11/01/2024 Reviewed by: Cee Thompson MD - Fully Assessed Reason for Visit: Results [95] Primary Visit Diagnosis:Hyperlipidem ia, mixed [E78.2] Order(s):atorvastatin (LIPITOR) 10 mg tabletTake 1 tablet by mouth once daily.Disp: 90 tabletRfl: 1 LIPID PANEL, FASTING [SQLIPB] Order #: [id number] FUTURE COMPREHENSIVE METABOLIC PANEL [SQCMP] Order #: [id number] FUTURE Prescriptions as of 11/02/2024 - atorvastatin (LIPITOR) 10 mg tablet Take 1 tablet by mouth once daily. 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 Encounter Status:Closed by VERONICA NORRIS on 11/02/24 Normal [facility] CBC W Ordered Manual Differe ntial panel (Bld)on 11-01-2024 Basophils (Bld) [#/Vol] 0.05 10*3/uL Normal <0.11 [facility] Comment on above: Order Comment: Speci men Type: BLOOD SPECIMENOrdering Facility: [facility] Address: [address] [place] [address] Performed By: #### S TFREV, 01079-2, [id number] ####[facility] LABCLIA [id number] [place] [address] [place] Basophils/100 WBC (Bld) 1.1 % Normal [facility] Comment on above: Order Comment: Speci men Type: BLOOD SPECIMENOrdering Facility: [facility] Address: [address] [place] [address] Performed By: #### S TFREV, 46671-3, [id number] ####[facility] LABCLIA [id number] [place] [address] [place] Differential cell count method Nom (Bld) Auto Normal [facility] Comment on above: Order Comment: Speci men Type: BLOOD SPECIMENOrdering Facility: [facility] Address: [address] [place] [address] Performed By: #### S TFREV, 06563-9, [id number] ####[facility] LABCLIA [id number] [place] [address] [place] Eosinophils (Bld) [#/Vol] 0.14 10*3/uL Normal <0.46 [facility] Comment on above: Order Comment: Speci men Type: BLOOD SPECIMENOrdering Facility: [facility] Address: [address] [place] [address] Performed By: #### S TFRSARAY, 75942-8, [id number] ####[facility] LABCLIA [id number] [place] [address] [place] Eosinophils/100 WBC (Bld) 3.2 % Normal [facility] Comment on above: Order Comment: Speci men Type: BLOOD SPECIMENOrdering Facility: [facility] Address: [address] [place] [address] Performed By: #### S TFRSARAY, 66988-3, [id number] ####[facility] LABCLIA [id number] [place] [address] [place] Erythrocyte distribution width (RBC) [Ratio] 12.4 % Normal 11.5-15.0 [facility] Comment on above: Order Comment: Speci men Type: BLOOD SPECIMENOrdering Facility: [facility] Address: [address] [place] [address] Performed By: #### S TFREV, 41548-4, [id number] ####[facility] LABCLIA [id number] [place] [address] [place] Hematocrit (Bld) [Volume fraction] 43.6 % Normal 39.0-51.0 [facility] Comment on above: Order Comment: Speci men Type: BLOOD SPECIMENOrdering Facility: [facility] Address: [address] [place] [address] Performed By: #### S TFREV, 31706-7, [id number] ####[facility] LABCLIA [id number] [place] [address] [place] Hemoglobin (Bld) [Mass/Vol] 15.0 g/dL Normal 13.0-17.0 [facility] Comment on above: Order Comment: Speci men Type: BLOOD SPECIMENOrdering Facility: [facility] Address: [address] [place] [address] Performed By: #### S TFREV, 04803-1, [id number] ####[facility] LABCLIA [id number] [place] [address] [place] Immature granulocytes (Bld) [#/Vol] 10*3/uL Normal <0.10 [facility] Comment on above: Order Comment: Speci men Type: BLOOD SPECIMENOrdering Facility: [facility] Address: [address] [place] [address] Performed By: #### S TFREV, 01690-6, [id number] ####[facility] LABCLIA [id number] [place] [address] [place] Immature granulocytes/100 WBC (Bld) 0.2 % Normal [facility] Comment on above: Order Comment: Speci men Type: BLOOD SPECIMENOrdering Facility: [facility] Address: [address] [place] [address] Performed By: #### S TFREV, 18026-6, [id number] ####[facility] LABCLIA [id number] [place] [address] [place] Lymphocytes (Bld) [#/Vol] 1.07 10*3/uL Normal 1.00-4.00 [facility] Comment on above: Order Comment: Speci men Type: BLOOD SPECIMENOrdering Facility: [facility] Address: [address] [place] [address] Performed By: #### S TFRSARAY, 82235-2, [id number] ####[facility] LABCLIA [id number] [place] [address] [place] Lymphocytes/100 WBC (Bld) 24.5 % Normal [facility] Comment on above: Order Comment: Speci men Type: BLOOD SPECIMENOrdering Facility: [facility] Address: [address] [place] [address] Performed By: #### S TFRSARAY, 25084-2, [id number] ####[facility] LABCLIA [id number] [place] [address] [place] MCH (RBC) [Entitic mass] 31.1 pg Normal 26.0-34.0 [facility] Comment on above: Order Comment: Speci men Type: BLOOD SPECIMENOrdering Facility: [facility] Address: [address] [place] [address] Performed By: #### S TFRSARAY, 51573-8, [id number] ####[facility] LABCLIA [id number] [place] [address] [place] MCHC (RBC) [Mass/Vol] 34.4 g/dL Normal 30.5-36.0 [facility] Comment on above: Order Comment: Speci men Type: BLOOD SPECIMENOrdering Facility: [facility] Address: [address] [place] [address] Performed By: #### S TFREV, 70377-0, [id number] ####[facility] LABCLIA [id number] [place] [address] [place] MCV (RBC) [Entitic vol] 90.3 fL Normal 80.0-100.0 [facility] Comment on above: Order Comment: Speci men Type: BLOOD SPECIMENOrdering Facility: [facility] Address: [address] [place] [address] Performed By: #### S TFRSARAY, 06204-5, [id number] ####[facility] LABCLIA [id number] [facility] [place] [address] [place] Monocytes (Bld) [#/Vol] 0.35 10*3/uL Normal <0.87 [facility] Comment on above: Order Comment: Speci men Type: BLOOD SPECIMENOrdering Facility: [facility] Address: [address] [place] [address] Performed By: #### S TFRSARAY, 06925-4, [id number] ####[facility] LABCLIA [id number] [place] [address] [place] Monocytes/100 WBC (Bld) 8.0 % Normal [facility] Comment on above: Order Comment: Speci men Type: BLOOD SPECIMENOrdering Facility: [facility] Address: [address] [place] [address] Performed By: #### S TFRSARAY, 77209-9, [id number] ####[facility] LABCLIA [id number] [place] [address] [place] Neutrophils (Bld) [#/Vol] 2.74 10*3/uL Normal 1.45-7.50 [facility] Comment on above: Order Comment: Speci men Type: BLOOD SPECIMENOrdering Facility: [facility] Address: [address] [place] [address] Performed By: #### S TFRSARAY, 00653-9, [id number] ####[facility] LABCLIA [id number] [facility] [place] [address] [place] Neutrophils/100 WBC (Bld) 63.0 % Normal [facility] Comment on above: Order Comment: Speci men Type: BLOOD SPECIMENOrdering Facility: [facility] Address: [address] [place] [address] Performed By: #### S TFRSARAY, 70674-1, [id number] ####[facility] LABCLIA [id number] [place] [address] [place] Nucleated RBC (Bld) [#/Vol] 10*3/uL Normal <0.01 [facility] Comment on above: Order Comment: Speci men Type: BLOOD SPECIMENOrdering Facility: [facility] Address: [address] [place] [address] Performed By: #### S TFRSARAY, 76218-7, [id number] ####[facility] LABCLIA [id number] [place] [address] [place] Nucleated RBC/100 WBC (Bld) [Ratio] 0.0 /100 WBC Normal [facility] Comment on above: Order Comment: Speci men Type: BLOOD SPECIMENOrdering Facility: [facility] Address: [address] [place] [address] Performed By: #### S TFRSARAY, 63859-4, [id number] ####[facility] LABCLIA [id number] [place] [address] [place] Platelet mean volume (Bld) [Entitic vol] 12.9 fL High 9.0-12.7 [facility] Comment on above: Order Comment: Speci men Type: BLOOD SPECIMENOrdering Facility: [facility] Address: [address] [place], [place] [address] Performed By: #### S TFREV, 19593-4, [id number] ####[facility] LABCLIA [id number] [place] [id number] [place] Platelets (Bld) [#/Vol] 45 10*3/uL Low 150-400 [facility] Comment on above: Order Comment: Speci men Type: BLOOD SPECIMENOrdering Facility: [facility] Address: [address] [place] [address] Result Comment: Resu lts checked and verified.No clot detected. Performed By: #### S TFREV, 41291-5, [id number] ####[facility] LABCLIA [id number] [place] [address] [place] RBC (Bld) [#/Vol] 4.83 10*6/uL Normal 4.20-6.00 [facility] Comment on above: Order Comment: Speci men Type: BLOOD SPECIMENOrdering Facility: [facility] Address: [address] [place] [address] Performed By: #### S TFREV, 22532-2, [id number] ####[facility] LABCLIA [id number] [place] [address] [place] WBC (Bld) [#/Vol] 4.36 10*3/uL Normal 3.70-11.00 [facility] Comment on above: Order Comment: Speci men Type: BLOOD SPECIMENOrdering Facility: [facility] Address: [address] [place] [address] Performed By: #### S TFRSARAY, 31014-6, [id number] ####[facility] LABCLIA [id number] [place] [address] [place] CITRATED PLATELET COUNTon CITRATED PLATELET COUNT (WAM) Normal [facility] Comment on above: Order Comment: Speci men Type: BLOOD SPECIMEN [facility] Address: [address] [place] [address] Result Comment: Resu lts checked and verified.No clot detected.Platelets Clumped Estimate Low. Performed By: #### C ITPLT #### [facility] LAB CLIA [id number] [address] [place] [address] [place] CNOVon 11-01-2024 [facility] MIGUEL MONACO ([id number]) 1965 M Date Time Provider Department 11/01/24 7:00 AM CEE THOMPSON During your visit today, we recorded the following information about you: Pulse Respiration Blood pressure Weight 57/minute 16/minute 122/78 89.4 kg Height 1.792 m Cee Thompson MD 11/01/2024 8:10 AM Signed Chief Complaint Patient presents with: Establish Care HPI Miguel Monaco is a 59 year old male who presents here today for re-establish care visit. Previously our patient with last OV 02/2021. Patient has been in good health without recent hospitalizations, ER visits. No concerns today. Notes some recent fatigue. Only getting about 4-6 hours of sleep per night. Patient requesting routine labs today. States that in the past his platelets would clot unless we used a certain tube. Denies recent bleeding or bruising. Last tetanus shot was more than 10 years ago. Requesting Prevnar 20. Overdue for colonoscopy. Denies change in bowel movements, abdominal pain, weight loss, fever/chills, night sweats. Past medical history, appointments, medications, allergies reviewed. Previous Medical History PAST MEDICAL HISTORY Diagnosis Date Multiple lipomas Tinea cruris Previous Surgical History PAST SURGICAL HISTORY Procedure Laterality Date COLONOSCOPY FLX DX W/COLLJ SPEC WHEN PFRMD 09/15/2017 Colonoscopy repeat 5 years PAST SURGICAL HISTORY OF 1995 right knee Acl repair REM LESION TRUNK,ARM,LEG 0.6 -1.0CM 02/10/07 Left mid forearm lipoma excision Family History FAMILY HISTORY Problem Relation Age of Onset No Known Problems Mother No Known Problems Sister No Known Problems Sister No Known Problems Brother Prostate Cancer Maternal Grandfather No Known Problems Daughter No Known Problems Daughter No Known Problems Daughter No Known Problems Son Colon Cancer Paternal Aunt Patient Allergies ALLERGIES No Known Allergies Current Medications No current outpatient medications on file prior to visit. No current facility-administered medications on file prior to visit. Social History Social History Tobacco Use Smoking status: Never Smokeless tobacco: Never Vaping Use Vaping status: Never Used Substance Use Topics Alcohol use: Yes Comment: 2-3 drinks per month Drug use: No Review of Symptoms REVIEW OF SYSTEMS GENERAL: No weight loss, malaise or fevers HEENT: Negative for frequent or significant headaches, No changes in hearing or vision, no nose bleeds or other nasal problems NECK: Negative for lumps, goiter, pain and significant neck swelling RESPIRATORY: Negative for cough, hemoptysis, wheezing, COPD, dyspnea or shortness of breath CARDIOVASCULAR: Negative for chest pain, leg swelling, hypertension, CHF or palpitations GI: No nausea, vomiting, or diarrhea : No history of dysuria, frequency or incontinence, No difficulty urinating, nocturia > 1 time per night or hematuria MUSCULOSKELETAL: Negative for joint pain or swelling, back pain or muscle pain SKIN: Negative for lesions, rash, and itching PSYCH: Negative for sleep disturbance, mood disorder and recent psychosocial stressors HEMATOLOGY/LYMPHOLOGY: Negative for prolonged bleeding, bruising easily or swollen nodes ENDOCRINE: Negative for cold or heat intolerance, polyuria, polydipsia and goiter NEURO: No history of headaches, syncope, paralysis, seizures or tremors EXAM: BP 122/78 Pulse (!) 57 Resp 16 Ht 179.2 cm (5' 10.55) Wt 89.4 kg (197 lb 3.2 oz) SpO2 98% BMI 27.86 kg/m? General Appearance: Well appearing, alert, in no acute distress, well-hydrated, well nourished. Skin: Skin color, texture, turgor normal, no suspicious rashes or lesions. Head: Normocephalic, no masses, lesions, tenderness or abnormalities. Eyes: Anicteric sclera. Pupils are equally round and reactive to light. Extraocular movements are intact. . Ears: External ears normal, canals clear. Nose/Sinuses: Nares normal, septum midline, mucosa normal, no drainage or sinus tenderness. Oropharynx: Lips, mucosa, and tongue normal, teeth and gums normal, oropharynx normal. Neck: Supple, no adenopathy; thyroid symmetric, normal size, no bruits. Lungs: Lungs clear to auscultation. No wheezing, rhonchi, rales.. Heart: RRR. 2/6 blowing holosystolic murmur best heard at LLSB. Abdomen: Normal abdominal exam, Abdomen soft, non-tender. Bowel sounds normal. No masses, organomegaly. Extremities: No deformities, edema, skin discoloration, clubbing or cyanosis. Good capillary refill. . Peripheral Pulses: Normal. Neurologic: CN II-XII grossly intact. Lymph Nodes: No cervical lymphadenopathy and No supraclavicular lymphadenopathy. Health Maintenance List Depression Screening Never done Anxiety Screening Never done HIV Screening Never done DTaP,Tdap,Td Vaccine(1 (more content not included)... Normal [facility] Comprehensive metabolic 2000 panelon 11-01-2024 Albumin [Mass/Vol] 4.5 g/dL Normal 3.9-4.9 [facility] Comment on above: Order Comment: Speci men Type: BLOOD SPECIMENOrdering Facility: [facility] Address: [address] [place] [address] Performed By: #### 2 4323-8, LIPNF, 6-3 ####[facility] LABCLIA [id number] [place] [address] [place] ALP [Catalytic activity/Vol] 45 U/L Normal 38-113 [facility] Comment on above: Order Comment: Speci men Type: BLOOD SPECIMENOrdering Facility: [facility] Address: [address] [place] [address] Performed By: #### 2 4323-8, LIPNF, 6-3 ####[facility] LABCLIA [id number] [place] [address] [place] ALT [Catalytic activity/Vol] 20 U/L Normal 10-54 [facility] Comment on above: Order Comment: Speci men Type: BLOOD SPECIMENOrdering Facility: [facility] Address: [address] [place] [address] Performed By: #### 2 4323-8, LIPNF, 6-3 ####[facility] LABCLIA [id number] [address] [address] [place] Anion gap [Moles/Vol] 9 mmol/L Normal 8-15 [facility] Comment on above: Order Comment: Speci men Type: BLOOD SPECIMENOrdering Facility: [facility] Address: [address] [place] [address] Performed By: #### 2 4323-8, LIPNF, 6-3 ####[facility] LABCLIA [id number] [place] [id number] [place] AST [Catalytic activity/Vol] 19 U/L Normal 14-40 [facility] Comment on above: Order Comment: Speci men Type: BLOOD SPECIMENOrdering Facility: [facility] Address: [address] [place] [address] Performed By: #### 2 4323-8, LIPNF, 3015-3 ####[facility] LABCLIA [id number] [place] [address] [place] Bilirubin [Mass/Vol] 0.4 mg/dL Normal 0.2-1.3 [facility] Comment on above: Order Comment: Speci men Type: BLOOD SPECIMENOrdering Facility: [facility] Address: [address] [place], [place] [address] Performed By: #### 2 4323-8, LIPNF, 3015-3 ####[facility] LABCLIA [id number] [place] [address] [place] Calcium [Mass/Vol] 9.5 mg/dL Normal 8.5-10.2 [facility] Comment on above: Order Comment: Speci men Type: BLOOD SPECIMENOrdering Facility: [facility] Address: [address] [place], [place] [address] Performed By: #### 2 4323-8, LIPNF, 6-3 ####[facility] LABIA [id number] [place] [address] [place] Chloride [Moles/Vol] 105 mmol/L Normal 98-107 [facility] Comment on above: Order Comment: Speci men Type: BLOOD SPECIMENOrdering Facility: [facility] Address: [address] [place] [address] Performed By: #### 2 4323-8, LIPNF, 6-3 ####[facility] LABCLIA [id number] [place] [address] [place] CO2 [Moles/Vol] 25 mmol/L Normal 22-30 [facility] Comment on above: Order Comment: Speci men Type: BLOOD SPECIMENOrdering Facility: [facility] Address: [address] [place] [address] Performed By: #### 2 4323-8, LIPNF, 3015-3 ####[facility] LABCLIA [id number] [place] [address] [place] Creatinine [Mass/Vol] 0.91 mg/dL Normal 0.73-1.22 [facility] Comment on above: Order Comment: Speci men Type: BLOOD SPECIMENOrdering Facility: [facility] Address: [address] [place] [address] Performed By: #### 2 4323-8, LIPNF, 3015-3 ####[facility] LABCLIA [id number] [address] [place] Creatinine and Glomerular filtration rate.predicted panel (S/P/Bld) 96 mL/min/1.73m??? Normal >=60 [facility] Comment on above: Order Comment: Speci men Type: BLOOD SPECIMENOrdering Facility: [facility] Address: [address] [place] [address] Result Comment: Reina mated Glomerular Filtration Rate (eGFR) is calculated using the 2020 CKD-EPI creatinine equation. This equation utilizes serum creatinine, sex, and age as parameters. The creatinine assay has traceable calibration to isotope dilution-mass spectrometry. Refer to KDIGO guidelines for clinical interpretation. In patients with unstable renal function, e.g. those with acute kidney injury, the eGFR may not accurately reflect actual GFR. Performed By: #### 2 4323-8, LIPNF, 6-3 ####[facility] LABCLIA [id number] [address] [address] [place] Glucose [Mass/Vol] 98 mg/dL Normal 74-99 [facility] Comment on above: Order Comment: Speci men Type: BLOOD SPECIMENOrdering Facility: [facility] Address: [address] [place] [address] Result Comment: The [place] Diabetes Association (ADA) provides guidance for cutoff values for fasting glucose and random glucose. The ADA defines fasting as no caloric intake for at least 8 hours. Fasting plasma glucose results between 100 to 125 mg/dL indicate increased risk for diabetes (prediabetes). Fasting plasma glucose results greater than or equal to 126 mg/dL meet the criteria for diagnosis of diabetes. In the absence of unequivocal hyperglycemia, results should be confirmed by repeat testing. In a patient with classic symptoms of hyperglycemia or hyperglycemic crisis, random plasma glucose results greater than or equal to 200 mg/dL meet the criteria for diagnosis of diabetes. Reference: Standards of Medical Care in Diabetes 2016, [place] Diabetes Association. Diabetes Care. 2016.39(Suppl 1). Performed By: #### 2 4323-8, LIPNF, 6-3 ####[facility] LABIA [id number] [place] [address] [place] Potassium [Moles/Vol] 4.4 mmol/L Normal 3.7-5.1 [facility] Comment on above: Order Comment: Speci men Type: BLOOD SPECIMENOrdering Facility: [facility] Address: [address] [place] [address] Performed By: #### 2 4323-8, LIPNF, 6-3 ####[facility] LABCLIA [id number] [place] [address] [place] Protein [Mass/Vol] 7.0 g/dL Normal 6.3-8.0 [facility] Comment on above: Order Comment: Speci men Type: BLOOD SPECIMENOrdering Facility: [facility] Address: [address] [place], [place] [address] Performed By: #### 2 4323-8, LIPNF, 6-3 ####[facility] LABCLIA [id number] [address] [place] [address] [place] Sodium [Moles/Vol] 139 mmol/L Normal 136-144 [facility] Comment on above: Order Comment: Speci men Type: BLOOD SPECIMENOrdering Facility: [facility] Address: [address] [place] [address] Performed By: #### 2 4323-8, LIPNEEL, 3016-3 ####[facility] LABIA [id number] [address] [place] [address] [place] Urea nitrogen [Mass/Vol] 19 mg/dL Normal 9-24 [facility] Comment on above: Order Comment: Speci men Type: BLOOD SPECIMENOrdering Facility: [facility] Address: [address] [place] [address] Performed By: #### 2 4323-8, LIPNF, 3016-3 ####[facility] [id number] [address] [address] [place] HbA1c (Bld)on 11-01-2024 Average glucose Estimated from glycated hemoglobin (Bld) [Mass/Vol] 91 mg/dL Normal [facility] Comment on above: Order Comment: Speci men Type: BLOOD SPECIMENOrdering Facility: [facility] Address: [address] [place] [address] Result Comment: eAG: (Estimated average glucose) is a calculated value from HgbA1c and is mechanical service representative of the average blood glucose level in the last 2-3 month period. Performed By: #### 5 5454-3 ####[facility] LABIA [id number] [address] [address] [place] HbA1c (Bld) [Mass fraction] 4.8 % Normal 4.3-5.6 [facility] Comment on above: Order Comment: Speci men Type: BLOOD SPECIMENOrdering Facility: [facility] Address: [address] [place] [address] Result Comment: Amer [place] Diabetes Association guidelines indicate that patients with HgbA1c in the range 5.7-6.4% are at increased risk for development of diabetes, and intervention by lifestyle modification may be beneficial. HgbA1c greater or equal to 6.5% is considered diagnostic of diabetes. Performed By: #### 5 5454-3 ####[facility] LABCLIA [id number] [place] [address] [place] LIPID PANEL, NONFASTINGon Cholesterol [Mass/Vol] 255 mg/dL High <200 [facility] Comment on above: Order Comment: Speci men Type: BLOOD SPECIMENOrdering Facility: [facility] Address: [address] [place] [address] Result Comment: <200 mg/dL, Desirable 200-239 mg/dL, Borderline high >239 mg/dL, High Performed By: #### 2 4323-8, LIPNF, 3016-3 ####[facility] LABIA [id number] [address] STATES OF [facility] HDL CHOLESTEROL, NF 69 mg/dL Normal >39 [facility] Comment on above: Order Comment: Priti michele Type: BLOOD SPECIMENOrdering Facility: [facility] Address: [address] [place] [address] Result Comment: 40-5 9 mg/dL, Acceptable >59 mg/dL, High: Negative risk factor for coronary heart disease <40 mg/dL, Low: Positive risk factor for coronary heart disease Performed By: #### 2 4323-8, LIPNF, 3016-3 ####[facility] LABIA [id number] [place] [address] [place] LDL CHOLESTEROL, NF 171 mg/dL High <100 [facility] Comment on above: Order Comment: Priti michele Type: BLOOD SPECIMENOrdering Facility: [facility] Address: [address] [place] [address] Result Comment: <100 mg/dL, Optimal 100-129 mg/dL, Near optimal/above optimal 130-159 mg/dL, Borderline high 160-189 mg/dL, High >189 mg/dL, Very high Secondary prevention optimal LDL Cholesterol levels are recommended to be < 70 mg/dL Performed By: #### 2 4323-8, LIPNF, 6-3 ####[facility] LABCLIA [id number] [address] [address] [place] LDL/HDL RATIO, NF 2.48 mg/dL Normal <2.[address] [facility] Comment on above: Order Comment: Speci men Type: BLOOD SPECIMENOrdering Facility: [facility] Address: [address] [place] [address] Result Comment: Refe rence: 1. National Cholesterol Education Program ATP III Guideline At-A-Glance Quick Desk Reference: National Heart, Lung, and Blood [place]. National Institutes of Health. 2001: NIH Publication No. 01-3305. 2. An International Atherosclerosis Society position paper: global recommendations for the management of dyslipidemia: executive summary, Atherosclerosis. 2014: 232(2):410-413. Performed By: #### 2 4323-8, VAISHALI, 3015-3 ####[facility] LABCLIA [id number] [address] [address] [place] NON HDL CHOL, NF 186 mg/dL High <130 [facility] Comment on above: Order Comment: Speci men Type: BLOOD SPECIMENOrdering Facility: [facility] Address: [address] [place] [address] Result Comment: <130 mg/dL, Optimal 130-159 mg/dL, Near optimal/above optimal 160-189 mg/dL, Borderline high 190-219 mg/dL, High >219 mg/dL, Very high Secondary prevention optimal non HDL Cholesterol levels are recommended to be <100 mg/dL Performed By: #### 2 4323-8, LIPNF, 3015-3 ####[facility] LABCLIA [id number] [address] [address] [facility] [place] T CHOL/HDL RATIO NF 3.70 mg/dL Normal <5.10 [facility] Comment on above: Order Comment: Speci men Type: BLOOD SPECIMENOrdering Facility: [facility] Address: [address] [place] [address] Performed By: #### 2 4323-8, LIPNF, 3015-3 ####[facility] LABCLIA [id number] [place] [id number] [place] TRIGLYCERIDES, NF 75 mg/dL Normal <[address] [facility] Comment on above: Order Comment: Speci men Type: BLOOD SPECIMENOrdering Facility: [facility] Address: [address] [place] [address] Result Comment: <150 mg/dL, Normal 150-199 mg/dL, Borderline high 200-499 mg/dL, High >499 mg/dL, Very high Performed By: #### 2 4323-8, LIPNF, 3015-3 ####[facility] LABCLIA [id number] [place] [address] [place] VLDL CHOLESTEROL, NF 15 mg/dL Normal <30 [facility] Comment on above: Order Comment: Speci men Type: BLOOD SPECIMENOrdering Facility: [facility] Address: [address] [place] [address] Performed By: #### 2 4323-8, LIPNF, 3015-3 ####[facility] LABCLIA [id number] [address] [place] PATHOLOGIST INTERPRETATION C BC/DIFFon 11-01-2024 Case Investigator review Gurjit (Unsp spec) [Interp] Reviewed by Ida De León M.D. Normal [facility] Comment on above: Order Comment: Speci men Type: BLOOD SPECIMENOrdering Facility: [facility] Address: [address] [place] [address] Performed By: #### S TFREV, 67882-7, [id number] ####[facility] LABCLIA [id number] [address] [place] STAFF REVIEW, CBCDIF Platelets clumped, estimate normal Normal [facility] Comment on above: Order Comment: Speci men Type: BLOOD SPECIMENOrdering Facility: [facility] Address: [address] [place] [address] Performed By: #### S TFRSARAY, 51734-9, [id number] ####[facility] LABCLIA [id number] [place] [address] [place] RBC MORPHOLOGYon 11-01-2024 Platelet clump LM Ql (Bld) Present Normal [facility] Comment on above: Order Comment: Speci men Type: BLOOD SPECIMENOrdering Facility: [facility] Address: [address] [place] [address] Performed By: #### S TFRSARAY, 76200-4, [id number] ####[facility] LABCLIA [id number] [place] [address] [place] Platelets Estimate (Bld) [#/Vol] Adequate Normal [facility] Comment on above: Order Comment: Speci men Type: BLOOD SPECIMENOrdering Facility: [facility] Address: [address] [place] [address] Performed By: #### S TFRSARAY, 32933-2, [id number] ####[facility] LABCLIA [id number] [address] STATES [facility] RBC morphology finding Nom (Bld) Reviewed: unremarkable Normal [facility] Comment on above: Order Comment: Speci men Type: BLOOD SPECIMENOrdering Facility: [facility] Address: [address] [place] [address] Performed By: #### S TFRSARAY, 64238-2, [id number] ####[facility] LABCLIA [id number] [place] [address] [place] TSH SerPl-aCncon 11-01-2024 TSH Qn 1.530 m[IU]/L Normal 0.270-4.200 [facility] Comment on above: Order Comment: Speci men Type: BLOOD SPECIMENOrdering Facility: [facility] Address: [address] [place] [address] Performed By: #### 2 4323-8, LIPNEEL, 3016-3 ####[facility] LABCLIA [id number] [place] [address] [place] Vital Signs Date Time Vital Sign Value Performing Clinician Caren brown 02-16-2025 11:39-0400 Body height 182.[address] Keegan Thompson MD Work Phone: [facility] 02-16-2025 11:39-0400 Body mass index (BMI) [Ratio] 24.7 kg/m2 Dr. Keegan Thompson MD Work Phone: [facility] 02-16-2025 11:39-0400 Body weight 82.[address] Keegan Thompson MD Work Phone: [facility] 02-16-2025 11:39-0400 Diastolic blood pressure 88 mm[Hg] Dr. Keegan Thompson MD Work Phone: [facility] 02-16-2025 11:39-0400 Heart rate 57 /min Dr. Keegan Thompson MD Work Phone: [facility] 02-16-2025 11:39-0400 Respiratory rate 16 /min Dr. Keegan Thompson MD Work Phone: [facility] 02-16-2025 11:39-0400 Systolic blood pressure 142 mm[Hg] Dr. Keegan Thompson MD Work Phone: [facility] 02-08-2025 09:38-0400 Body height 182.9 cm Aida Vanegas APRN.DRIER HELPER Work Phone: [facility] 02-08-2025 09:38-0400 Body mass index (BMI) [Ratio] 24.79 kg/m2 Aida Vanegas APRN.DRIER HELPER Work Phone: [facility] 02-08-2025 09:38-0400 Body temperature 97.5 [degF] Aida Elton GRADES 9 THRU 12 VISITING TEACHER.DRIER HELPER Work Phone: [facility] 02-08-2025 09:38-0400 Body weight 82.92 kg Aida Elton GRADES 9 THRU 12 VISITING TEACHER.DRIER HELPER Work Phone: [facility] 02-08-2025 09:38-0400 Diastolic blood pressure 86 mm[Hg] Aida Elton GRADES 9 THRU 12 VISITING TEACHER.DRIER HELPER Work Phone: [facility] 02-08-2025 09:38-0400 Heart rate 57 /min Aida Elton GRADES 9 THRU 12 VISITING TEACHER.DRIER HELPER Work Phone: [facility] 02-08-2025 09:38-0400 SaO2% (BldA) [Mass fraction] 97 % Aida Elton GRADES 9 THRU 12 VISITING TEACHER.DRIER HELPER Work Phone: [facility] 02-08-2025 09:38-0400 Systolic blood pressure 124 mm[Hg] Aida Elton GRADES 9 THRU 12 VISITING TEACHER.DRIER HELPER Work Phone: [facility] 01-27-2025 12:20-0400 Body mass index (BMI) [Ratio] 25.79 kg/m2 Cee Thompson MD Work Phone: [facility] 01-27-2025 12:20-0400 Body weight 82.83 kg Cee Thompson MD Work Phone: [facility] 01-27-2025 12:20-0400 Diastolic blood pressure 72 mm[Hg] Cee Thompson MD Work Phone: [facility] 01-27-2025 12:20-0400 Heart rate 78 /min Cee Thompson MD Work Phone: [facility] 01-27-2025 12:20-0400 Respiratory rate 12 /min Cee Thompson MD Work Phone: [facility] 01-27-2025 12:20-0400 Systolic blood pressure 114 mm[Hg] Cee Thompson MD Work Phone: [facility] 11-01-2024 06:56-0400 Body height 179.2 cm Cee Thompson MD Work Phone: [facility] 11-01-2024 06:56-0400 Body mass index (BMI) [Ratio] 27.86 kg/m2 Cee Thompson MD Work Phone: [facility] 11-01-2024 06:56-0400 Body weight 89.45 kg Cee Thompson MD Work Phone: [facility] 11-01-2024 06:56-0400 Diastolic blood pressure 78 mm[Hg] Cee Thompson MD Work Phone: [facility] 11-01-2024 06:56-0400 Heart rate 57 /min Cee Thompson MD Work Phone: [facility] 11-01-2024 06:56-0400 Respiratory rate 16 /min Cee Thompson MD Work Phone: [facility] 11-01-2024 06:56-0400 SaO2% (BldA) [Mass fraction] 98 % Cee Thompson MD Work Phone: [facility] 11-01-2024 06:56-0400 Systolic blood pressure 122 mm[Hg] Cee Thompson MD Work Phone: [facility] Encounters Encounter Date Encounter Type Care Provider Facility Start: 02-28-2025 ambulatory He Baeza Facility:[facility] Start: 02-16-2025 End: 02-16-2025 Telephone encounter Cee Thompson MD Work Phone: [facility] [place] Start: 02-16-2025 End: 02-16-[address] Keegan Thompson MD Work Phone: -Laboratory Start: 02-16-2025 End: 02-16-[address] He Baeza MD -Laboratory Work Phone: Start: 02-16-2025 End: 02-16-[address] He Baeza MD -[facility] Work Phone: Start: 02-16-2025 End: 02-16-[address] Keegan Thompson MD Work Phone: [facility] Start: 02-16-2025 End: 02-16-2025 ambulatory He Baeza Facility:[facility] Start: 02-08-2025 End: 02-09-2025 Telephone encounter Aida Vanegas APRN.DRIER HELPER Work Phone: Pre Anesthesia Comment on above: Appointment; Returni ng Patient's Call Patient Question Start: 02-08-2025 End: 02-08-2025 Patient encounter procedure Aida Vanegas APRN.DRIER HELPER Work Phone: General Surgery Comment on above: Screening for colon cancer Start: 02-08-2025 End: 02-08-2025 ambulatory CEE THOMPSON Facility:[facility] Start: 02-07-2025 End: 02-07-2025 Follow-up encounter Cee Thompson MD Work Phone: [facility] Start: 02-04-2025 End: 02-04-2025 ambulatory CEE THOMPSON Facility:[facility] Start: 02-01-2025 End: 02-01-2025 Telephone encounter Cee Thompson MD Work Phone: [facility] Comment on above: Patient Question Start: 01-31-2025 End: 01-31-2025 Follow-up encounter Cee Thompson MD Work Phone: [facility] Comment on above: Results Start: 01-27-2025 End: 01-27-2025 Patient encounter procedure Cee Thompson MD Work Phone: [facility] Comment on above: Lipoma of right uppe r extremity (Primary Dx); Lipoma of left shoulder; Pure hypercholesterolemia Start: 01-27-2025 End: 01-27-2025 ambulatory CEE THOMPSON Facility:[facility] Start: 01-27-2025 End: 01-27-2025 ambulatory CEE THOMPSON Facility:[facility] Start: 11-02-2024 End: 01-02-2025 Follow-up encounter Cee Thompson MD Work Phone: [facility] [place] Start: 11-02-2024 End: 11-02-2024 Telephone encounter Cee Thompson MD Work Phone: [facility] Comment on above: Results Start: 11-01-2024 End: 11-01-2024 ambulatory CEE THOMPSON Facility:[facility] Start: 11-01-2024 End: 11-01-2024 Patient encounter procedure Cee Thompson MD Work Phone: [facility] [place] Comment on above: Encounter for medica l examination to establish care (Primary Dx); Newly recognized heart murmur; Fatigue, unspecified type; Encounter for immunization; Screening for colon cancer Start: 11-01-2024 End: 11-01-2024 Patient encounter status Cee Thompson MD Work Phone: [facility] Start: 11-01-2024 End: 11-01-2024 ambulatory SELF Facility:[facility] Start: 11-01-2024 Encounter for genera l adult medical examination without abnormal findings CEE THOMPSON [facility] Start: 11-27-2023 ambulatory Ileana Trimble LPN [facility] [place] Start: 11-27-2023 Patient encounter procedure La medina Walter LPN [facility] Comment on above: colon/Office visit d ue (Quality Team) Procedures Date Procedure Procedure Detail Performing Clinician Start: 01-27-2025 Lipid 1995 panel - S niurka or Plasma Cee Thompson MD Work Phone: Start: 11-01-2024 Lipid Karthik panel - S niurka or Plasma Cee Thompson MD Work Phone: Start: 04-21-2021 Lipid 1996 panel - S niurka or Plasma Ileana Walter LPN Start: 09-15-2017 Colonoscopy Ileana hendricks LPN Plan of Treatment Date Care Activity Detail Author Start: 2039 RSV Vaccine (1 - 1-d ose 75+ series) RSV Vaccine (1 - 1-dose 75+ series) [facility] Start: 11-01-2034 Urine microalbumin profile DTa P,Tdap,Td Vaccine (2 - Td or Tdap) [facility] Start: 01-27-2030 Lipid panel Lipid Screening [facility] Start: 11-01-2029 Lipid panel Lipid Screening [facility] Start: 11-01-2029 Prostate specific an tigen measurement Prostate Cancer Screening Discussion [facility] Start: 01-28-2028 Diabetes Screening Diabetes Screenin g [facility] Start: 11-02-2027 Diabetes Screening Diabetes Screenin g [facility] Start: 04-21-2026 Lipid panel Lipid Screening [facility] Start: 11-02-2025 End: 11-02-2025 Patient encounter procedure 11/02/2025 7:00 AM EDT Office Visit [facility] [place] [address] [place], [place] [id number] Cee Thompson MD [address] [place], [place] [id number] annual physical [facility] [place] Comment on above: annual physical Start: 06-01-2025 End: 06-01-2025 Patient encounter procedure 06/01/2025 12:30 PM EST Office Visit [facility] [place], [place] [id number] Binta Jane MD [place], [place] [id number] Ascending aorta dilation [I77.810] [facility] Comment on above: Ascending aorta dila tion [I77.810] Start: 03-28-2025 Influenza vaccination Influenza Vacc ine (#1) [facility] Start: 02-21-2025 End: 02-21-2025 Patient encounter procedure 02/21/2025 4:00 PM EDT Office Visit General Surgery [address] [place], [place] [phone] Huan Adhikari MD [address] [place], [place] [phone] Lipoma of right upper extremity [D17.21] General Surgery Comment on above: Lipoma of right uppe r extremity [D17.21] Start: 02-16-2025 Evaluation of diagno stic study results [facility] Start: 02-14-2025 End: 02-14-2025 Patient encounter procedure [facility] Comment on above: Lipoma of right uppe r extremity [D17.21] Lipoma of left shoul giacomo [D17.22] Start: 02-08-2025 End: 02-08-2025 Patient encounter procedure General Surgery Comment on above: Screening for colon cancer [Z12.11] CONSULT: Screening f or colon cancer. Last 09/15/2017. [facility] Start: 02-08-2025 End: 02-08-2025 Patient encounter procedure 02/08/2025 8:50 AM EDT Office Visit Cardiology [address] [place] [address] Newly recognized heart murmur [R01.1] Cardiology Comment on above: Newly recognized hea rt murmur [R01.1] Start: 02-02-2025 End: 02-02-2025 ambulatory 02/02/2025 4:00 PM EDT Results Only [facility] [address] [place] [address] [facility] Start: 02-01-2025 End: 05-03-2025 Comprehensive metabolic 2000 panel - Serum or Plasma COMPREHENSIVE METABOLIC PANEL Lab Routine Hyperlipidemia, mixed Expected: 02/01/2025, Expires: 05/03/2025 [facility] Comment on above: Expected: 02/01/2025 , Expires: 05/03/2025 Start: 02-01-2025 End: 05-03-2025 Lipid 1996 panel - Serum or Plasma LIPID PANEL, FASTING Lab Routine Hyperlipidemia, mixed Expected: 02/01/2025, Expires: 05/03/[address] [facility] Work Phone: Comment on above: Expected: 02/01/2025 , Expires: 05/03/2025 Start: 01-31-2025 End: 05-02-2025 Potassium [Moles/volume] in Serum or Plasma POTASSIUM Lab Routine Hyperkalemia Expected: 01/31/2025, Expires: 05/02/[address] [facility] Work Phone: Comment on above: Expected: 01/31/2025 , Expires: 05/02/2025 Start: 11-01-2024 End: 01-31-2025 CBC W Ordered Manual Differential panel - Blood [facility] Comment on above: Expected: 11/01/2024 , Expires: 01/31/2025 Start: 11-01-2024 End: 01-31-2025 CITRATED PLATELET COUNT [facility] Comment on above: Expected: 11/01/2024 , Expires: 01/31/2025 Start: 11-01-2024 End: 01-31-2025 Comprehensive metabolic 2000 panel - Serum or Plasma [facility] Work Phone: Comment on above: Expected: 11/01/2024 , Expires: 01/31/2025 Start: 11-01-2024 End: 01-31-2025 Hemoglobin A1c in Blood [facility] Comment on above: Expected: 11/01/2024 , Expires: 01/31/2025 Start: 11-01-2024 End: 01-31-2025 LIPID PANEL, NONFASTING [facility] Comment on above: Expected: 11/01/2024 , Expires: 01/31/2025 Start: 11-01-2024 End: 01-31-2025 Thyrotropin [Units/volume] in Serum or Plasma [facility] Comment on above: Expected: 11/01/2024 , Expires: 01/31/2025 Start: 04-21-2024 Diabetes Screening Diabetes Screenin g [facility] Start: 03-28-2024 Influenza vaccination Influenz a Vaccine (Season Ended) [facility] Start: 07-28-2023 Behavioral Health Screening Behavioral Health Screening [facility] Start: 03-28-2023 Covid-19 Vaccine ( season) Covid-19 Vaccine ( season) [facility] Start: 09-15-2022 Screening for malign ant neoplasm of colon [facility] Start: 2019 Prostate specific an tigen measurement Prostate Cancer Screening Discussion [facility] Start: 2009 Screening for malign ant neoplasm of colon [facility] Start: 1983 Urine microalbumin profile DTa P,Tdap,Td Vaccine (1 - Tdap) [facility] Start: 1982 Anxiety Screening Anxiety Screening [facility] Start: 1982 Depression Screening Depression Scre ening [facility] Start: 1982 HIV screening HIV Screening [facility] Catheterization of l eft heart [facility] CT Chest W contrast [place] [facility] [place]: 11-01-2025 Echocardiography ECHO Cardiology Routine Newly recognized heart murmur 1 Occurrences starting 11/01/2024 until 11/01/2025 [facility] Comment on above: 1 Occurrences starti ng 11/01/2024 until 11/01/2025 End: 02-26-2026 US Extremity - right US EXTREMITY MASS/FLUID COLLECTION RIGHT Radiology Routine Lipoma of right upper extremity 1 Occurrences starting 01/27/2025 until 02/26/2026 [facility] Comment on above: 1 Occurrences starti ng 01/27/2025 until 02/26/2026 End: 02-26-2026 US Head and neck soft tissue US HEAD/NECK SOFT TISSUE OTHER Radiology Routine Lipoma of left shoulder 1 Occurrences starting 01/27/2025 until 02/26/[address] [facility] Work Phone: Comment on above: 1 Occurrences starti ng 01/27/2025 until 02/26/2026 US Heart Trans[facility] Immunizations Immunization Date Immunization Notes Care Provider Fa gem 11-01-2024 pneumococcal conjuga te (PCV20) vaccine, 20 valent (PREVNAR 20) Cee Thompson MD Work Phone: [facility] 11-01-2024 tetanus toxoid, redu deshawn diphtheria toxoid, and acellular pertussis vaccine, adsorbed Cee Thompson MD Work Phone: [facility] 11-01-2024 pneumococcal Conjuga te, unspecified formulation Cee Thompson MD Work Phone: [facility] 04-12-2024 Seasonal, trivalent, recombinant, injectable influenza vaccine, preservative free Cee Thompson MD Work Phone: [facility] 04-12-2024 influenza virus vaccine, unspecified formulation Cee Thompson MD Work Phone: [facility] 05-10-2023 Seasonal, quadrivale nt, recombinant, injectable influenza vaccine, preservative free Cee Thompson MD Work Phone: [facility] 05-02-2022 influenza, injectabl e, quadrivalent, preservative free Cee Thompson MD Work Phone: [facility] 07-19-2021 zoster vaccine recombinant Ileana Walter LPN [facility] 04-18-2021 influenza, injectabl e, quadrivalent, preservative free Cee Thompson MD Work Phone: [facility] 04-18-2021 influenza virus vaccine, unspecified formulation Ileana Walter LPN [facility] 03-21-2021 zoster vaccine recombinant Ileana Walter LPN [facility] 04-24-2020 influenza, injectabl e, quadrivalent, preservative free Cee Thompson MD Work Phone: [facility] 04-23-2018 Influenza, injectabl e, Madin [place] Canine Kidney, preservative free, quadrivalent Cee Thompson MD Work Phone: [facility] 04-19-2016 influenza, injectabl e, quadrivalent, preservative free Cee Thompson MD Work Phone: [facility] 04-10-2016 influenza, seasonal, injectable Ileana Walter LPN [facility] 05-04-2015 influenza, injectabl e, quadrivalent, preservative free Cee Thompson MD Work Phone: [facility] 05-02-2014 influenza, seasonal, injectable, preservative free Cee Thompson MD Work Phone: [facility] 05-02-2012 influenza virus vaccine, unspecified formulation Ileana Walter LPN [facility] 04-23-2011 influenza, seasonal, injectable, preservative free Cee Thompson MD Work Phone: [facility] 06-06-2009 novel [id number], preservative-free, injectable Cee Thompson MD Work Phone: [facility] 06-09-2007 influenza virus vaccine, whole virus Cee Thompson MD Work Phone: [facility] Payers Date Payer Category Payer Self-pay 2020 [employer] [facility] [employer] PPO [id number] 2020 Unknown DARLENE NORRIS SS PPO [id number] 2020-Present [phone] [address] [place] [address] PPO [id number] 2020 Unknown [id number] Unknown [id number] Unknown [id number] Unknown [id number] Social History Date Type Detail Facility Start: 08-09-2011 End: 02-10-2025 Tobacco smoking status NHIS Never smoked tobacco [facility] Start: 08-09-2011 Tobacco use and exposure Smoke less tobacco non-user [facility] Start: 03-21-2021 End: 02-08-2025 Alcohol intake Current drinker of alcohol (finding) [facility] Start: 03-21-2021 End: 11-01-2024 History of Social function [facility] Start: 03-21-2021 End: 11-01-2024 Tobacco use panel [facility] National Score (1-10 0), lower number is lower risk Not on file [facility] Start: 1965 Sex Assigned At Not on file [facility] Has the [employer], [employer], or [employer] threatened to shut off services in your home in past 12Mo No [facility] Are you now , , , , never or living with a partner? [facility] How often to you hav e a drink containing alcohol? 2-4 times a month [facility] How many standard dr inks containing alcohol do you have on a typical day? 1 or 2 [facility] How often do you hav e 6 or more drinks on 1 occasion? Never [facility] How hard is it for y ou to pay for the very basics like food, housing, medical care, and heating Not very hard [facility] Do you feel stress - tense, restless, nervous, or anxious, or unable to sleep at night because your mind is troubled all the time - these days [OSQ] Not at all [facility] (I/We) worried wheth er (my/our) food would run out before (I/we) got money to buy more. Never true [facility] Start: 11-01-2024 Alcohol Comment 2-3 drinks per month [facility] Start: 1965 Sex assigned at Male [facility] Start: 07-05-2024 Gender identity Identifies as male gender (finding) [facility] Clinical Notes 12-10-2023 to 02-16-2025 Note Date & Type Note Facility 02-16-2025 Evaluation note Diagnosis Onset Date Resolution Ascending aorta dilatation acute February 16, 2025 11:23am Mitral regurgitation acute February 16, 2025 11:23am [facility] Work Phone: [phone]) 426-226207-23-2025 Telephone encounter Note* Telephone Encounter - Cee Thompson MD - 02/16/2025 12:46 PM EDT 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 Planning on heart cath and then repair. 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 Planning on heart cath and then repair. documented in this encounterOhio [facility]25 Telephone encounter Note * Telephone Encounter - Betty Savage RN - 02/09/2025 4:55 PM EDT Pt's [facility] calling in and would like Dr. Thompson to know that Dr. Baeza will be seeing patient next Friday02/16/25. also updated of General Surgery note in other 02/08 encounter stating that pt's colonoscopy should be postponed until he meets with Cardiology. Betty Savage RN [facility]07-16-2025 Miscellaneous Notes* Telephone Encounter - Betty Savage RN - 02/09/2025 4:55 PM EDT Pt's [facility] calling in and would like Dr. Thompson to know that Dr. Baeza will be seeing patient next Friday02/16/25. also updated of General Surgery note in other 02/08 encounter stating that pt's colonoscopy should be postponed until he meets with Cardiology. Betty Savage RN * Telephone Encounter - Amy Purcell MA - 02/09/2025 9:53 AM EDT Referral faxed to Dr. Baeza with [facility] per 's request. See other phone message. Amy Purcell MA * Telephone Encounter - Cee Thompson MD - 02/09/2025 7:42 AM EDT Can we check with [facility] cardiology for their availability? * Telephone Encounter - Meme Lam RN - 02/08/2025 4:18 PM EDT Patient's calls and states that the soonest patient can get in within the [facility] was06/01/2025 and that is in [facility]. asking if this is ok or do they need to start looking outside of [facility]? Please review and advise, Meme Lam RN documented in this encounterOhio [facility] System07-16-2025 Telephone encounter Note * Telephone Encounter - Amy Purcell MA - 02/09/2025 9:53 AM EDT Referral faxed to Dr. Baeza with [facility] per 's request. See other phone message. Amy Purcell MA [facility]07-16-2025 Telephone encounter Note* Telephone Encounter - Cee Thompson MD - 02/09/2025 7:42 AM EDT Can we check with [facility] cardiology for their availability? [facility]07-15-2025 Telephone encounter Note* Telephone Encounter - Meme Lam RN - 02/08/2025 4:18 PM EDT Patient's calls and states that the soonest patient can get in within the [facility] was06/01/2025 and that is in [facility]. asking if this is ok or do they need to start looking outside of [facility]? Please review and advise, Meme Lam, RN [facility]07-15-2025 Telephone encounter Note* Telephone Encounter - Miriam Ontiveros LPN - 02/08/2025 3:51 PM EDT Images from the original note were not included. Aida Vanegas APRN.KWASI [facility] General Surgery Pool59 minutes ago (2:51 PM) KB Please let him know that we will post pone colonoscopy until he meets with Cardiology and they decide the next steps. If they decide to do a valve repair we will wait until after this is complete. Please cancel his colonoscopy for next Friday. Thank you, Aida Vanegas APRN.KWASI Called [facility]. Verified name and date of [facility]il[facility] informed- verbalizes understanding. 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 Miriam Ontiveros LPN [facility]07-15-2025 Miscellaneous Notes* Telephone Encounter - Miiram Ontiveros LPN - 02/08/2025 3:51 PM EDT Images from the original note were not included. Aida Vanegas APRN.KWASI [facility] [place]59 minutes ago (2:51 PM) OMER Please let him know that we will post pone colonoscopy until he meets with Cardiology and they decide the next steps. If they decide to do a valve repair we will wait until after this is complete. Please cancel his colonoscopy for next Friday. Thank you, Aida Vanegas APRN.KWASI Called [facility]. Verified name and date of [facility] informed- verbalizes understanding. 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 Miriam Ontiveros LPN * Telephone Encounter - Christine Farley LPN - 02/08/2025 2:05 PM EDT Patient's is calling, patient had ECHO completed today. Results came back Mitral valve regurgitation. Patient and are wanting to know if colonoscopy is needing cancelled for next Friday? Please review and advise further Christine Farley LPN documented in this encounterOhio [facility] System07-15-2025 Note* Addendum Note - Aida Vanegas APRN.CNP - 02/08/2025 2:52 PM EDTAddended by: AIDA VANEGAS on: 02/08/2025 02:52 PM Modules accepted: Orders [facility]07-15-2025 Miscellaneous Notes* Addendum Note - Aida Vanegas APRN.DRIER HELPER - 02/08/2025 2:52 PM EDTAddended by: AIDA VANEGAS on: 02/08/2025 02:52 PM Modules accepted: Orders documented in this encounterOhio State Health System07-15-2025 Telephone encounter Note * Telephone Encounter - Christine Farley LPN - 02/08/2025 2:05 PM EDT Patient's is calling, patient had ECHO completed today. Results came back Mitral valve regurgitation. Patient and are wanting to know if colonoscopy is needing cancelled for next Friday? Please review and advise further Christine Farley LPN [facility]07-15-2025 History of Present illness Narrative* Aida Vanegas APRN.CNP - 02/08/2025 10:30 AM EDT HISTORY AND PHYSICAL Miguel Monaco : 1965 REFERRING PHYSICIAN: Cee Thompson [address] [facility] [address] CHIEF COMPLAINT: Patient presents with: Consult: colonoscopy HPI: Miguel is a 59 year old male referred for endoscopy. Miguel notes due for colon cancer screening. Miguel denies abdominal pain. Miguel denies diarrhea. Miguel denies constipation. Miguel denies a change in bowel habits. Miguel denies melena. Miguel denies bright red blood per rectum. Miguel denies hemorrhoids. Miguel notes family history of colon issues. Paternal aunt with colon cancer Miguel denies heartburn. Miguel denies dysphagia. Miguel denies a history of ulcers/ peptic ulcer disease. Miguel has undergone prior endoscopy. Last colonoscopy was 08/[address] Dong at [facility]. Sedation: Fentanyl 100 micrograms IV, Midazolam 5 mg IV Impression: - The entire examined colon is normal. - No specimens collected. Current Outpatient Medications Medication Sig atorvastatin (LIPITOR) 10 mg tablet Take 1 tablet by mouth once daily. peg 3350-Electrolytes (GOLYTELY) 236-22.74-6.74 -5.86 gram suspension Take 4,000 mL by mouth one time only for 1 dose. Refer to printed prep instructions from your provider. No current facility-administered medications for this visit. ALLERGIES: Patient has no known allergies. PAST MEDICAL HISTORY Diagnosis Date Hyperlipidemia Multiple lipomas Systolic murmur Tinea cruris PAST SURGICAL HISTORY Procedure Laterality Date COLONOSCOPY FLX DX W/COLLJ SPEC WHEN PFRMD 09/15/2017 Colonoscopy repeat 5 years PAST SURGICAL HISTORY OF 1995 right knee Acl repair REM LESION TRUNK,ARM,LEG 0.6 -1.0CM 02/10/07 Left mid forearm lipoma excision FAMILY HISTORY Problem Relation Age of Onset No Known Problems Mother No Known Problems Sister No Known Problems Sister No Known Problems Brother Prostate Cancer Maternal Grandfather No Known Problems Daughter No Known Problems Daughter No Known Problems Daughter No Known Problems Son Colon Cancer Paternal Aunt Social History Tobacco Use Smoking status: Never Smokeless tobacco: Never Vaping Use Vaping status: Never Used Substance Use Topics Alcohol use: Yes Comment: 2-3 drinks per month Drug use: No PHYSICAL EXAMINATION: General: The patient is 59 year old, male well nourished, well hydrated in no acute distress. The patient is oriented to time, place, and person. VITALS: Blood pressure 124/86, pulse (!) 57, temperature 36.4 C (97.5 F), height 182.9 cm (6'), weight 82.9 kg (182 lb 12.8 oz), SpO2 97%. Body mass index is 24.79 kg/m . HEENT: Normal cephalic, ataumatic, pupils are equally round, sclera are anicteric, mucous membranesare moist, oropharynx is clear. Neck has no masses or asymmetry . Respiratory: Clear to auscultation. Cardiac: Regular rate and rhythm. Abdominal exam: Soft, nontender, with no palpable masses. No hepatosplenomegaly. No palpable hernias. Extremities: no clubbing or cyanosis LABORATORY VALUES: As Noted RADIOLOGIC STUDIES: As Noted Assessment IMPRESSION: screen for colon cancer PLAN: I have reviewed my findings with the surgeon. Will plan for lower endoscopy. We discussed therisks and benefits of the planned endoscopy in terms understandable to the patient. I have informedthe patient that complications can occur including failure to complete the endoscopy and perforation. Miguel had the opportunity to ask questions concerning the planned endoscopy. Miguel freely consents to surgery. I plan to use Golytely bowel preparation I have explained to the patient the difference between IV conscious sedation and MAC anesthesia - and I have offered either, according to the patient's wishes. I have explained that with IV conscioussedation there is no anesthesia provider available and therefore there is a limitation of the amount of IV medications that can be given and that the patient may wake up in the middle of the procedure and/or experience pain/discomfort during the procedure. Further discussion was done and the patient was given the opportunity to ask questions and all questions were answered. Miguel chooses IV conscious sedation. Miguel was counseled that if there are changes in his/her medical condition, to let the office know if surgery should proceed. If there are changes in patient's medical condition from time of this encounter to the day of the procedure that preclude anesthesia, patient may have procedure cancelled for patient's safety. Diagnoses: (Z12.11) Screening for colon cancer Consultation requested by Dr. Thompson for an opinion regarding colon cancer screening. My final recommendations will be communicated back to the requesting physician by way of shared Medical record or letter to requesting physician via US mail. Portions of this documentation were copied and pasted from previous office visit notes in order to provide a cohesive continuity of the history. The note has been reviewed and edited and updated as necessary. Aida Vanegas APRN.DRIER HELPER documented in this encounterOhio State Health System07-15-2025 NoteHNO ID: [id number] Author: AIDA VANEGAS APRN.KWASI Service: ? Author Type: Nurse Practitioner Type: Progress Notes Filed: 02/08/2025 10:29 Note Text: HISTORY AND PHYSICAL Miguel Monaco : 1965 REFERRING PHYSICIAN: Cee Thompson [facility] [address] CHIEF COMPLAINT: Patient presents with: Consult: colonoscopy HPI: Miguel is a 59 year old male referred for endoscopy. Miguel notes due for colon cancer screening. Miguel denies abdominal pain. Miguel denies diarrhea. Miguel denies constipation. Miguel denies a change in bowel habits. Miguel denies melena. Miguel denies bright red blood per rectum. Miguel denies hemorrhoids. Miguel notes family history of colon issues. Paternal aunt with colon cancer Mgiuel denies heartburn. Miguel denies dysphagia. Miguel denies a history of ulcers/ peptic ulcer disease. Miguel has undergone prior endoscopy. Last colonoscopy was 08/[address] Dong at [facility]. Sedation: Fentanyl 100 micrograms IV, Midazolam 5 mg IV Impression: - The entire examined colon is normal. - No specimens collected. Current Outpatient Medications Medication Sig atorvastatin (LIPITOR) 10 mg tablet Take 1 tablet by mouth once daily. peg 3350-Electrolytes (GOLYTELY) 236-22.74-6.74 -5.86 gram suspension Take 4,000 mL by mouth one time only for 1 dose. Refer to printed prep instructions from your provider. No current facility-administered medications for this visit. ALLERGIES: Patient has no known allergies. PAST MEDICAL HISTORY Diagnosis Date Hyperlipidemia Multiple lipomas Systolic murmur Tinea cruris PAST SURGICAL HISTORY Procedure Laterality Date COLONOSCOPY FLX DX W/COLLJ SPEC WHEN PFRMD 09/15/2017 Colonoscopy repeat 5 years PAST SURGICAL HISTORY OF 1995 right knee Acl repair REM LESION TRUNK,ARM,LEG 0.6 -1.0CM 02/10/07 Left mid forearm lipoma excision FAMILY HISTORY Problem Relation Age of Onset No Known Problems Mother No Known Problems Sister No Known Problems Sister No Known Problems Brother Prostate Cancer Maternal Grandfather No Known Problems Daughter No Known Problems Daughter No Known Problems Daughter No Known Problems Son Colon Cancer Paternal Aunt Social History Tobacco Use Smoking status: Never Smokeless tobacco: Never Vaping Use Vaping status: Never Used Substance Use Topics Alcohol use: Yes Comment: 2-3 drinks per month Drug use: No PHYSICAL EXAMINATION: General: The patient is 59 year old, male well nourished, well hydrated in no acute distress. The patient is oriented to time, place, and person. VITALS: Blood pressure 124/86, pulse (!) 57, temperature 36.4 ?C (97.5 ?F), height 182.9 cm (6'), weight 82.9 kg (182 lb 12.8 oz), SpO2 97%. Body mass index is 24.79 kg/m?. HEENT: Normal cephalic, ataumatic, pupils are equally round, sclera are anicteric, mucous membranes are moist, oropharynx is clear. Neck has no masses or asymmetry . Respiratory: Clear to auscultation. Cardiac: Regular rate and rhythm. Abdominal exam: Soft, nontender, with no palpable masses. No hepatosplenomegaly. No palpable hernias. Extremities: no clubbing or cyanosis LABORATORY VALUES: As Noted RADIOLOGIC STUDIES: As Noted Assessment IMPRESSION: screen for colon cancer PLAN: I have reviewed my findings with the surgeon. Will plan for lower endoscopy. We discussed the risks and benefits of the planned endoscopy in terms understandable to the patient. I have informed the patient that complications can occur including failure to complete the endoscopy and perforation. Miguel had the opportunity to ask questions concerning the planned endoscopy. Miguel freely consents to surgery. I plan to use Golytely bowel preparation I have explained to the patient the difference between IV conscious sedation and MAC anesthesia - and I have offered either, according to the patient's wishes. I have explained that with IV conscious sedation there is no anesthesia provider available and therefore there is a limitation of the amount of IV medications that can be given and that the patient may wake up in the middle of the procedure and/or experience pain/discomfort during the procedure. Further discussion was done and the patient was given the opportunity to ask questions and all questions were answered. Miguel chooses IV conscious sedation. Miguel was counseled that if there are changes in his/her medical condition, to let the office know if surgery should proceed. If there are changes in patient's medical condition from time of this encounter to the day of the procedure that preclude anesthesia, patient may have procedure cancelled for patient's safety. Diagnoses: (Z12.11) Screening for colon cancer Consultation requested by Dr. Thompson for an opinion regarding colon cancer screening. My final recommendations will be communicated back to the requesting physician by way of shared (more content not included)...[facility]07-14-2025 Telephone encounter Note* Telephone Encounter - Amy Purcell MA - 02/07/2025 1:42 PM EDT ----- Message from Cee Thompson MD sent at 02/07/2025 7:12 AM EDT ----- Repeat potassium level is normal. No changes to regimen. [facility]07-14-2025 Miscellaneous Notes* Telephone Encounter - Amy Purcell MA - 02/07/2025 1:42 PM EDT ----- Message from Cee Thompson MD sent at 02/07/2025 7:12 AM EDT ----- Repeat potassium level is normal. No changes to regimen. documented in this encounter[facility]07-[facility]-2025 Telephone encounter Note * Telephone Encounter - Amy Purcell MA - 02/01/2025 2:03 PM EDT Patient's informed. Amy Purcell MA [facility]07-08-2025 Miscellaneous Notes* Telephone Encounter - Amy Purcell MA - 02/01/2025 2:03 PM EDT Patient's informed. Amy Purcell MA * Telephone Encounter - Cee Thompson MD - 02/01/2025 9:57 AM EDT He had a murmur on his initial appointment so I would recommend he continue with the echo as ordered. * Telephone Encounter - Sunita Barnhart LPN - 02/01/2025 9:09 AM EDT Patient Mariluz calling asking since at appt on 01/27/2025 Dr wyatt did not hear any heartmurmur. Does her still have to complete the ECHO? She is asking because of the cost of all of the medical things he is having done. He is scheduled for the ECHO next week. Please advise documented in this encounterOhio [facility]07-08-2025 Telephone encounter Note * Telephone Encounter - Cee Thompson MD - 02/01/2025 9:57 AM EDT He had a murmur on his initial appointment so I would recommend he continue with the echo as ordered. [facility]07-08-2025 Telephone encounter Note* Telephone Encounter - Sunita Barnhart LPN - 02/01/2025 9:09 AM EDT Patient Mariluz calling asking since at appt on 01/27/2025 Dr wyatt did not hear any heartmurmur. Does her still have to complete the ECHO? She is asking because of the cost of all of the medical things he is having done. He is scheduled for the ECHO next week. Please advise [facility]07-07-2025 Telephone encounter Note* Telephone Encounter - Cee Thompson MD - 01/31/2025 12:17 PM EDT Rx sent [facility]07-07-2025 Miscellaneous Notes* Telephone Encounter - Cee Thompson MD - 01/31/2025 12:17 PM EDT Rx sent * Telephone Encounter - Ivonne Whatley MA - 01/31/2025 11:48 AM EDT Pt notified and voiced understanding. Needs refill to [facility]. Ivonne Whatley MA * Telephone Encounter - Ivonne Whatley MA - 01/31/2025 11:46 AM EDT ----- Message from Cee Thompson MD sent at 01/31/2025 7:54 AM EDT ----- Cholesterol much imporved compared to 3 years ago and is now in normal range. Other labs unremarkable except for high potassium level which is likely a lab error. Recommend repeat labs in the next 1-3 days to confirm potassium level is actually normal. documented in this encounterOhio [facility] System07-07-2025 Telephone encounter Note * Telephone Encounter - Ivonne Whatley MA - 01/31/2025 11:48 AM EDT Pt notified and voiced understanding. Needs refill to [facility]. Ivonne Whatley MA [place] [id number] Telephone encounter Note* Telephone Encounter - Ivonne Whatley MA - 01/31/2025 11:46 AM EDT ----- Message from Cee Thompson MD sent at 01/31/2025 7:54 AM EDT ----- Cholesterol much imporved compared to 3 years ago and is now in normal range. Other labs unremarkable except for high potassium level which is likely a lab error. Recommend repeat labs in the next 1-3 days to confirm potassium level is actually normal. [facility]07-03-2025 Instructions* Patient Instructions* Cee Thompson MD - 01/27/2025 1:01 PM EDT - Continue taking Lipitor at your current low dose every day; plan to stay on it for at least six months before considering stopping. - Maintain your heart-healthy diet: limit red meat, choose lean proteins and vegetables; small portions of pizza are okay if your cholesterol stays controlled. - Expect a call on Friday with your latest cholesterol lab results and further instructions. - An ultrasound has been ordered to evaluate the lipomas on your right elbow and neck before sending you for surgical consultation. - If the lipomas become painful, red, start draining fluid, or if you develop a fever, call the office right away. - For discomfort from the lipomas, apply ice and take [id number] pain relievers as needed. documented in this encounterOhio State Health System07-03-2025 NoteHNO ID: [id number] Author: CEE THOMPSON MD Service: ? Author Type: Physician Type: Progress Notes Filed: 01/27/2025 13:02 Note Text: Chief Complaint Patient presents with: Derm Problem: Cysts on right arm and left neck areas Recording using ambient [employer] software for draft documentation of the visit was discussed with the patient/authorized mechanical service representative; all questions welcomed and answered. Patient/authorized mechanical service representative agreed to proceed HPI Miguel Monaco is a 59 year old male who presents here today for Above Complaints. Lipomas: - Noted multiple lipomas on the right elbow and neck, initially pea-sized over a year ago, now approximately 3 cm each. - Gradual increase in size; reports a sensation of deflation followed by enlargement in the neck lipoma. - Mild tenderness when palpated; denies erythema, warmth, or drainage. - Previous lipoma excision performed. Hyperlipidemia: - Initiated on Lipitor; no adverse effects reported. - Adheres to a strict diet, avoiding red meat; reports increased energy and a 10 lb weight loss. - Inquires about the necessity of lifelong Lipitor use. Past medical history, appointments, medications, allergies reviewed. Previous Medical History PAST MEDICAL HISTORY Diagnosis Date Hyperlipidemia Multiple lipomas Systolic murmur Tinea cruris Previous Surgical History PAST SURGICAL HISTORY Procedure Laterality Date COLONOSCOPY FLX DX W/COLLJ SPEC WHEN PFRMD 09/15/2017 Colonoscopy repeat 5 years PAST SURGICAL HISTORY OF 1995 right knee Acl repair REM LESION TRUNK,ARM,LEG 0.6 -1.0CM 02/10/07 Left mid forearm lipoma excision Family History FAMILY HISTORY Problem Relation Age of Onset No Known Problems Mother No Known Problems Sister No Known Problems Sister No Known Problems Brother Prostate Cancer Maternal Grandfather No Known Problems Daughter No Known Problems Daughter No Known Problems Daughter No Known Problems Son Colon Cancer Paternal Aunt Patient Allergies ALLERGIES No Known Allergies Current Medications Current Outpatient Medications on File Prior to Visit Medication Sig atorvastatin (LIPITOR) 10 mg tablet Take 1 tablet by mouth once daily. No current facility-administered medications on file prior to visit. Social History Social History Tobacco Use Smoking status: Never Smokeless tobacco: Never Vaping Use Vaping status: Never Used Substance Use Topics Alcohol use: Yes Comment: 2-3 drinks per month Drug use: No Review of Symptoms REVIEW OF SYSTEMS See HPI EXAM: BP 114/72 Pulse 78 Resp 12 Wt 82.8 kg (182 lb 9.6 oz) BMI 25.79 kg/m? GENERAL: NAD, alert and oriented. SKIN: Unremarkable, no rash or skin lesions. Multiple lipomas noted, one approximately 3 cm on the right elbow and another approximately 3 cm on the neck. No signs of infection, erythema, or warmth. Lipomas are mobile and non-tender. LUNGS: Clear to auscultation bilaterally, no wheezes/rhonchi/rales. HEART: Regular rate and rhythm, no murmurs. No ectopy. Health Maintenance List Depression Screening Never done Anxiety Screening Never done Colorectal Cancer Screening due on 09/15/2022 Influenza Vaccine(1) due on 03/28/2025 Diabetes Screening due on 11/02/2027 Lipid Screening due on 11/01/2029 Prostate Cancer Screening Discussion due on 11/01/2029 DTaP,Tdap,Td Vaccine(2 - Td or Tdap) due on 11/01/2034 RSV Vaccine(1 - 1-dose 75+ series) due on 2039 Hepatitis C Screening Completed Shingrix Vaccine Completed Covid-19 Vaccine Completed Pneumococcal Vaccine: 50+ Completed HIV Screening Discontinued Data reviewed Latest Ref Rng 11/01/2024 WBC 3.70 - 11.00 k/uL 4.36 RBC 4.20 - 6.00 m/uL 4.83 Hemoglobin 13.0 - 17.0 g/dL 15.0 Hematocrit 39.0 - 51.0 % 43.6 MCV 80.0 - 100.0 fL 90.3 MCH 26.0 - 34.0 pg 31.1 MCHC 30.5 - 36.0 g/dL 34.4 RDW-CV 11.5 - 15.0 % 12.4 Platelet Count 150 - 400 k/uL 45 (L) MPV 9.0 - 12.7 fL 12.9 (H) Neut% % 63.0 Abs Neut (ANC) 1.45 - 7.50 k/uL 2.74 Lymph% % 24.5 Abs Lymph 1.00 - 4.00 k/uL 1.07 Allen% % 8.0 Abs Allen <0.87 k/uL 0.35 Eosin% % 3.2 Abs Eosin <0.46 k/uL 0.14 Baso% % 1.1 Abs Baso <0.11 k/uL 0.05 Immature Gran % % 0.2 IMMATURE GRANS (ABS) <0.10 k/uL <0.03 NRBC /100 WBC 0.0 Absolute nRBC <0.01 k/uL <0.01 DTYPE Auto Protein, Total 6.3 - 8.0 g/dL 7.0 Albumin 3.9 - 4.9 g/dL 4.5 Calcium 8.5 - 10.2 mg/dL 9.5 Bilirubin, Total 0.2 - 1.3 mg/dL 0.4 Alkaline Phosphatase 38 - 113 U/L 45 AST 14 - 40 U/L 19 ALT 10 - 54 U/L 20 Glucose 74 - 99 mg/dL 98 BUN 9 - 24 mg/dL 19 Creatinine 0.73 - 1.22 mg/dL 0.91 Sodium 136 - 144 mmol/L 139 Potassium 3.7 - 5.1 mmol/L 4.4 Chloride 98 - 107 mmol/L 105 CO2 22 - 30 mmol/L 25 Anion Gap 8 - 15 mmol/L 9 eGFR >=60 mL/min/1.73m? 96 Total Cholesterol, Nonfasting <200 mg/dL 255 (H) Triglycerides, Nonfasting <150 mg/dL 75 HDL Cholesterol, Nonfasting >39 mg/dL 69 LDL (more content not included)...[facility]07-03-2025 History of Present illness Narrative* Cee Thompson MD - 01/27/2025 12:44 PM EDT Chief Complaint Patient presents with: Derm Problem: Cysts on right arm and left neck areas Recording using [employer] software for draft documentation of the visit was discussed with the patient/authorized mechanical service representative; all questions welcomed and answered. Patient/authorized mechanical service representative agreed to proceed HPI Miguel Monaco is a 59 year old male who presents here today for Above Complaints. Lipomas: - Noted multiple lipomas on the right elbow and neck, initially pea-sized over a year ago, now approximately 3 cm each. - Gradual increase in size; reports a sensation of deflation followed by enlargement in the neck lipoma. - Mild tenderness when palpated; denies erythema, warmth, or drainage. - Previous lipoma excision performed. Hyperlipidemia: - Initiated on Lipitor; no adverse effects reported. - Adheres to a strict diet, avoiding red meat; reports increased energy and a 10 lb weight loss. - Inquires about the necessity of lifelong Lipitor use. Past medical history, appointments, medications, allergies reviewed. Previous Medical History PAST MEDICAL HISTORY Diagnosis Date Hyperlipidemia Multiple lipomas Systolic murmur Tinea cruris Previous Surgical History PAST SURGICAL HISTORY Procedure Laterality Date COLONOSCOPY FLX DX W/COLLJ SPEC WHEN PFRMD 09/15/2017 Colonoscopy repeat 5 years PAST SURGICAL HISTORY OF 1995 right knee Acl repair REM LESION TRUNK,ARM,LEG 0.6 -1.0CM 02/10/07 Left mid forearm lipoma excision Family History FAMILY HISTORY Problem Relation Age of Onset No Known Problems Mother No Known Problems Sister No Known Problems Sister No Known Problems Brother Prostate Cancer Maternal Grandfather No Known Problems Daughter No Known Problems Daughter No Known Problems Daughter No Known Problems Son Colon Cancer Paternal Aunt Patient Allergies ALLERGIES No Known Allergies Current Medications Current Outpatient Medications on File Prior to Visit Medication Sig atorvastatin (LIPITOR) 10 mg tablet Take 1 tablet by mouth once daily. No current facility-administered medications on file prior to visit. Social History Social History Tobacco Use Smoking status: Never Smokeless tobacco: Never Vaping Use Vaping status: Never Used Substance Use Topics Alcohol use: Yes Comment: 2-3 drinks per month Drug use: No Review of Symptoms REVIEW OF SYSTEMS See HPI EXAM: BP 114/72 Pulse 78 Resp 12 Wt 82.8 kg (182 lb 9.6 oz) BMI 25.79 kg/m GENERAL: NAD, alert and oriented. SKIN: Unremarkable, no rash or skin lesions. Multiple lipomas noted, one approximately 3 cm on the right elbow and another approximately 3 cm on the neck. No signs of infection, erythema, or warmth. Lipomas are mobile and non-tender. LUNGS: Clear to auscultation bilaterally, no wheezes/rhonchi/rales. HEART: Regular rate and rhythm, no murmurs. No ectopy. Health Maintenance List Depression Screening Never done Anxiety Screening Never done Colorectal Cancer Screening due on 09/15/2022 Influenza Vaccine(1) due on 03/28/2025 Diabetes Screening due on 11/02/2027 Lipid Screening due on 11/01/2029 Prostate Cancer Screening Discussion due on 11/01/2029 DTaP,Tdap,Td Vaccine(2 - Td or Tdap) due on 11/01/2034 RSV Vaccine(1 - 1-dose 75+ series) due on 2039 Hepatitis C Screening Completed Shingrix Vaccine Completed Covid-19 Vaccine Completed Pneumococcal Vaccine: 50+ Completed HIV Screening Discontinued Data reviewed Latest Ref Rng 11/01/2024 WBC 3.70 - 11.00 k/uL 4.36 RBC 4.20 - 6.00 m/uL 4.83 Hemoglobin 13.0 - 17.0 g/dL 15.0 Hematocrit 39.0 - 51.0 % 43.6 MCV 80.0 - 100.0 fL 90.3 MCH 26.0 - 34.0 pg 31.1 MCHC 30.5 - 36.0 g/dL 34.4 RDW-CV 11.5 - 15.0 % 12.4 Platelet Count 150 - 400 k/uL 45 (L) MPV 9.0 - 12.7 fL 12.9 (H) Neut% % 63.0 Abs Neut (ANC) 1.45 - 7.50 k/uL 2.74 Lymph% % 24.5 Abs Lymph 1.00 - 4.00 k/uL 1.07 Allen% % 8.0 Abs Allen <0.87 k/uL 0.35 Eosin% % 3.2 Abs Eosin <0.46 k/uL 0.14 Baso% % 1.1 Abs Baso <0.11 k/uL 0.05 Immature Gran % % 0.2 IMMATURE GRANS (ABS) <0.10 k/uL <0.03 NRBC /100 WBC 0.0 Absolute nRBC <0.01 k/uL <0.01 DTYPE Auto Protein, Total 6.3 - 8.0 g/dL 7.0 Albumin 3.9 - 4.9 g/dL 4.5 Calcium 8.5 - 10.2 mg/dL 9.5 Bilirubin, Total 0.2 - 1.3 mg/dL 0.4 Alkaline Phosphatase 38 - 113 U/L 45 AST 14 - 40 U/L 19 ALT 10 - 54 U/L 20 Glucose 74 - 99 mg/dL 98 BUN 9 - 24 mg/dL 19 Creatinine 0.73 - 1.22 mg/dL 0.91 Sodium 136 - 144 mmol/L 139 Potassium 3.7 - 5.1 mmol/L 4.4 Chloride 98 - 107 mmol/L 105 CO2 22 - 30 mmol/L 25 Anion Gap 8 - 15 mmol/L 9 eGFR >=60 mL/min/1.73m 96 Total Cholesterol, Nonfasting <200 mg/dL 255 (H) Triglycerides, Nonfasting <150 mg/dL 75 HDL Cholesterol, Nonfasting >39 mg/dL 69 LDL Cholesterol Calculated, Nonfasting <100 mg/dL 171 (H) Non HDL Cholesterol, Nonfasting <130 mg/dL 186 (H) VLDL Cholesterol, Nonfasting <30 mg/dL 15 Total Chol/HDL Ratio, Nonfasting <5.10 mg/dL 3.70 LDL/HDL Ratio, Nonfasting <2.54 mg/dL 2.48 Platelet Estimate Adequate Platelet Clumping Present Red Cell Morph Reviewed: unremarkable Hemoglobin A1C 4.3 - 5.6 % 4.8 Estimated Average Glucose mg/dL 91 Pathologist Interpretation, CBCDIF Platelets clumped, estimate normal Pathologist (BRAVO) Reviewed by Ida De León M.D. TSH 0.270 - 4.200 mIU/L 1.530 Citrated Platelet Count -- Legend: (L) Low (H) High The 10-year ASCVD risk score (Beata DK, et al., 2019) is: 7% Values used to calculate the score: Age: 59 years Sex: Male Is Non- : No Diabetic: No Tobacco smoker: No Systolic Blood Pressure: 114 mmHg Is BP treated: No HDL Cholesterol: 69 mg/dL Total Cholesterol: 255 mg/dL 1. Lipoma of right upper extremity (D17.21) 2. Lipoma of left shoulder (D17.22) - Multiple lipomas noted on right elbow and neck, approximately 3 cm each, mobile and non-tender onpalpation, consistent with lipomatous tissue; no signs of infection or abscess formation. - Ordered ultrasound imaging to further characterize the lesions and confirm lipomatous nature. - Referral to general surgery for evaluation and potential excision of lipomas. - Educated patient on the benign nature of lipomas, potential for recurrence post-excision, and signs of infection to monitor for, including erythema, drainage, and fever. - Advised use of ice and OTC analgesics for any discomfort. 3. Pure hypercholesterolemia (E78.00) - Previous total cholesterol levels in the 250s mg/dL; recent blood work performed today to reassess lipid profile. - Currently on atorvastatin (Lipitor) with no reported side effects; patient has also implemented dietary modifications resulting in a 10 lb weight loss and increased energy levels. - Discussed the benefits of continued statin therapy in reducing cardiovascular risk, including myocardial infarction and cerebrovascular accident. - Advised continuation of atorvastatin for at least 6 months before considering any adjustments based on lipid panel results. - Will review lab results and follow up with patient on Friday. Cee Thompson MD documented in this encounterOhio State [facility] System04-08-2025 Telephone encounter Note * Telephone Encounter - Veronica Norris RN - 11/02/2024 3:30 PM EDT Pt called and is notified of providers message and instructions. Pt voices understanding. Veronica Norris RN [place] [id number] Miscellaneous Notes* Telephone Encounter - Veronica Norris RN - 11/02/2024 3:30 PM EDT Pt called and is notified of providers message and instructions. Pt voices understanding. Veronica Norris RN * Telephone Encounter - Asuncion Leyva APRN.KWASI - 11/02/2024 3:21 PM EDT Prescription sent for atorvastatin - take one pill at bedtime. Repeat cholesterol fasting in 3 months. Asuncion Leyva APRN.KWASI * Telephone Encounter - Veronica Norris RN - 11/02/2024 1:14 PM EDT Pt called and is notified of providers results and instructions. Pt voices understanding. Pt ok with provider calling in St[place], please send to [facility] in [place], do not need to call Pt back. Veronica Norris RN * Telephone Encounter - Cee Thompson MD - 11/02/2024 11:48 AM EDT Called by hematology Dr. De León regarding low platelets. On her review, platelets are clumped but appear normal or low normal. Not in range to cause spontaneous bleeding. I would not make any changes to his regimen or refer him to hematology based on this report. Other labs are normal aside from high cholesterol. Based on age and risk factors, patient is moderate risk for heart attack or stroke in the next 10 years. Recommend moderate intensity statin daily and recheck labs in 3 months. Most common side effect: muscle aches. If agreeable, will send rx to requested pharmacy. The 10-year ASCVD risk score (Beata GILBERT, et al., 2019) is: 7.9% Values used to calculate the score: Age: 59 years Sex: Male Is Non- : No Diabetic: No Tobacco smoker: No Systolic Blood Pressure: 122 mmHg Is BP treated: No HDL Cholesterol: 69 mg/dL Total Cholesterol: 255 mg/dL * Telephone Encounter - Cee Thompson MD - 11/02/2024 10:30 AM EDT Called and spoke with nurse at Dr. Khalil's office. [place]. They are going [facility] and have alternative physician call me on cell phone with more information. * Telephone Encounter - Aleah Quinones LPN - 11/02/2024 10:21 AM EDT Contacted [facility] lab client services and spoke with Aspen. She gave phone number for Brooklynn Khalil she is medical radiation tech of hematology. Number is [phone]. Aleah Quinones LPN * Telephone Encounter - Cee Thompson MD - 11/02/2024 7:24 AM EDT Patient's platelet count is again low. We obtained citrated peptide which shows no clot detected, but platelets are clumped. I am not sure what they mean by estimate low and would like to speak with lab about this. It either means the 45 reading is low and not accurate, or the platelets are actually low and I need to know which. What number do I call to get clarification? documented in this encounterOhio State [facility] System04-08-2025 Telephone encounter Note * Telephone Encounter - Asuncion Leyva APRN.CNP - 11/02/2024 3:21 PM EDT Prescription sent for atorvastatin - take one pill at bedtime. Repeat cholesterol fasting in 3 months. Asuncion Leyva APRN.CNP [facility]04-08-2025 Telephone encounter Note* Telephone Encounter - Veronica Norris RN - 11/02/2024 1:14 PM EDT Pt called and is notified of providers results and instructions. Pt voices understanding. Pt ok with provider calling in [facility], [facility] [place], do not need to call Pt back. Veronica Norris RN [facility]04-08-2025 Telephone encounter Note* Telephone Encounter - Cee Thompson MD - 11/02/2024 11:48 AM EDT Called by hematology Dr. De León regarding low platelets. On her review, platelets are clumped but appear normal or low normal. Not in range to cause spontaneous bleeding. I would not make any changes to his regimen or refer him to hematology based on this report. Other labs are normal aside from high cholesterol. Based on age and risk factors, patient is moderate risk for heart attack or stroke in the next 10 years. Recommend moderate intensity statin daily and recheck labs in 3 months. Most common side effect: muscle aches. If agreeable, will send rx to requested pharmacy. The 10-year ASCVD risk score (Beata GILBERT, et al., 2019) is: 7.9% Values used to calculate the score: Age: 59 years Sex: Male Is Non- : No Diabetic: No Tobacco smoker: No Systolic Blood Pressure: 122 mmHg Is BP treated: No HDL Cholesterol: 69 mg/dL Total Cholesterol: 255 mg/dL [facility] Telephone encounter Note* Telephone Encounter - Cee Thompson MD - 11/02/2024 10:30 AM EDT Called and spoke with nurse at Dr. Khalil's office. She is out of the country. They are going [facility] and have alternative physician call me on cell phone with more information. [facility] Telephone encounter Note* Telephone Encounter - Aleah Quinones LPN - 11/02/2024 10:21 AM EDT Contacted [facility] lab client services and spoke with Aspen. She gave phone number for Brooklynn Khalil she is medical radiation tech of hematology. Number is [phone]. Aleah Quinones LPN [facility]04-08[facility] Telephone encounter Note* Telephone Encounter - Cee Thompson MD - 11/02/2024 7:24 AM EDT Patient's platelet count is again low. We obtained citrated peptide which shows no clot detected, but platelets are clumped. I am not sure what they mean by estimate low and would like to speak with lab about this. It either means the 45 reading is low and not accurate, or the platelets are actually low and I need to know which. What number do I call to get clarification? [facility]04-[facility] NoteHNO ID: [id number] Author: CEE THOMPSON MD Service: ? Author Type: Physician Type: Progress Notes Filed: 11/01/2024 08:10 Note Text: Chief Complaint Patient presents with: Establish Care HPI Miguel Monaco is a 59 year old male who presents here today for re-establish care visit. Previously our patient with last OV 02/2021. Patient has been in good health without recent hospitalizations, ER visits. No concerns today. Notes some recent fatigue. Only getting about 4-6 hours of sleep per night. Patient requesting routine labs today. States that in the past his platelets would clot unless we used a certain tube. Denies recent bleeding or bruising. Last tetanus shot was more than 10 years ago. Requesting Prevnar 20. Overdue for colonoscopy. Denies change in bowel movements, abdominal pain, weight loss, fever/chills, night sweats. Past medical history, appointments, medications, allergies reviewed. Previous Medical History PAST MEDICAL HISTORY Diagnosis Date Multiple lipomas Tinea [facility] Previous Surgical History PAST SURGICAL HISTORY Procedure Laterality Date COLONOSCOPY FLX DX W/COLLJ SPEC WHEN PFRMD 09/15/2017 Colonoscopy repeat 5 years PAST SURGICAL HISTORY OF 1995 right knee Acl repair REM LESION TRUNK,ARM,LEG 0.6 -1.0CM 02/10/07 Left mid forearm lipoma excision Family History FAMILY HISTORY Problem Relation Age of Onset No Known Problems Mother No Known Problems Sister No Known Problems Sister No Known Problems Brother Prostate Cancer Maternal Grandfather No Known Problems Daughter No Known Problems Daughter No Known Problems Daughter No Known Problems Son Colon Cancer Paternal Aunt Patient Allergies ALLERGIES No Known Allergies Current Medications No current outpatient medications on file prior to visit. No current facility-administered medications on file prior to visit. Social History Social History Tobacco Use Smoking status: Never Smokeless tobacco: Never Vaping Use Vaping status: Never Used Substance Use Topics Alcohol use: Yes Comment: 2-3 drinks per month Drug use: No Review of Symptoms REVIEW OF SYSTEMS GENERAL: No weight loss, malaise or fevers HEENT: Negative for frequent or significant headaches, No changes in hearing or vision, no nose bleeds or other nasal problems NECK: Negative for lumps, goiter, pain and significant neck swelling RESPIRATORY: Negative for cough, hemoptysis, wheezing, COPD, dyspnea or shortness of breath CARDIOVASCULAR: Negative for chest pain, leg swelling, hypertension, CHF or palpitations GI: No nausea, vomiting, or diarrhea : No history of dysuria, frequency or incontinence, No difficulty urinating, nocturia > 1 time per night or hematuria MUSCULOSKELETAL: Negative for joint pain or swelling, back pain or muscle pain SKIN: Negative for lesions, rash, and itching PSYCH: Negative for sleep disturbance, mood disorder and recent psychosocial stressors HEMATOLOGY/LYMPHOLOGY: Negative for prolonged bleeding, bruising easily or swollen nodes ENDOCRINE: Negative for cold or heat intolerance, polyuria, polydipsia and goiter NEURO: No history of headaches, syncope, paralysis, seizures or tremors EXAM: BP 122/78 Pulse (!) 57 Resp 16 Ht 179.2 cm (5' 10.55) Wt 89.4 kg (197 lb 3.2 oz) SpO2 98% BMI 27.86 kg/m? General Appearance: Well appearing, alert, in no acute distress, well-hydrated, well nourished. Skin: Skin color, texture, turgor normal, no suspicious rashes or lesions. Head: Normocephalic, no masses, lesions, tenderness or abnormalities. Eyes: Anicteric sclera. Pupils are equally round and reactive to light. Extraocular movements are intact. . Ears: External ears normal, canals clear. Nose/Sinuses: Nares normal, septum midline, mucosa normal, no drainage or sinus tenderness. Oropharynx: Lips, mucosa, and tongue normal, teeth and gums normal, oropharynx normal. Neck: Supple, no adenopathy; thyroid symmetric, normal size, no bruits. Lungs: Lungs clear to auscultation. No wheezing, rhonchi, rales.. Heart: RRR. 2/6 blowing holosystolic murmur best heard at [facility]. Abdomen: Normal abdominal exam, Abdomen soft, non-tender. Bowel sounds normal. No masses, organomegaly. Extremities: No deformities, edema, skin discoloration, clubbing or cyanosis. Good capillary refill. . Peripheral Pulses: Normal. Neurologic: CN II-XII grossly intact. Lymph Nodes: No cervical lymphadenopathy and No supraclavicular lymphadenopathy. Health Maintenance List Depression Screening Never done Anxiety Screening Never done HIV Screening Never done DTaP,Tdap,Td Vaccine(1 - Tdap) Never done Pneumococcal Vaccine: 50+(1 of 1 - PCV) Never done Prostate Cancer Screening Discussion Never done Colorectal Cancer Screening due on 09/15/2022 Diabetes Screening due on 04/21/2024 Lipid Screening due on 04/21/2026 RSV Vaccine(1 - 1-dose 75+ series) due on (more content not included)...[facility]04-07-2025 History of Present illness Narrative* Cee Thompson MD - 11/01/2024 7:02 AM EDT Chief Complaint Patient presents with: Establish Care HPI Miguel Monaco is a 59 year old male who presents here today for re-establish care visit. Previously our patient with last OV 02/2021. Patient has been in good health without recent hospitalizations,ER visits. No concerns today. Notes some recent fatigue. Only getting about 4-6 hours of sleep per night. Patient requesting routine labs today. States that in the past his platelets would clot unless we used a certain tube. Denies recent bleeding or bruising. Last tetanus shot was more than 10 years ago. Requesting Prevnar 20. Overdue for colonoscopy. Denies change in bowel movements, abdominal pain, weight loss, fever/chills, night sweats. Past medical history, appointments, medications, allergies reviewed. Previous Medical History PAST MEDICAL HISTORY Diagnosis Date Multiple lipomas Tinea cruris Previous Surgical History PAST SURGICAL HISTORY Procedure Laterality Date COLONOSCOPY FLX DX W/COLLJ SPEC WHEN PFRMD 09/15/2017 Colonoscopy repeat 5 years PAST SURGICAL HISTORY OF 1995 right knee Acl repair REM LESION TRUNK,ARM,LEG 0.6 -1.0CM 02/10/07 Left mid forearm lipoma excision Family History FAMILY HISTORY Problem Relation Age of Onset No Known Problems Mother No Known Problems Sister No Known Problems Sister No Known Problems Brother Prostate Cancer Maternal Grandfather No Known Problems Daughter No Known Problems Daughter No Known Problems Daughter No Known Problems Son Colon Cancer Paternal Aunt Patient Allergies ALLERGIES No Known Allergies Current Medications No current outpatient medications on file prior to visit. No current facility-administered medications on file prior to visit. Social History Social History Tobacco Use Smoking status: Never Smokeless tobacco: Never Vaping Use Vaping status: Never Used Substance Use Topics Alcohol use: Yes Comment: 2-3 drinks per month Drug use: No Review of Symptoms REVIEW OF SYSTEMS GENERAL: No weight loss, malaise or fevers HEENT: Negative for frequent or significant headaches, No changes in hearing or vision, no nose bleeds or other nasal problems NECK: Negative for lumps, goiter, pain and significant neck swelling RESPIRATORY: Negative for cough, hemoptysis, wheezing, COPD, dyspnea or shortness of breath CARDIOVASCULAR: Negative for chest pain, leg swelling, hypertension, CHF or palpitations GI: No nausea, vomiting, or diarrhea : No history of dysuria, frequency or incontinence, No difficulty urinating, nocturia > 1 timeper night or hematuria MUSCULOSKELETAL: Negative for joint pain or swelling, back pain or muscle pain SKIN: Negative for lesions, rash, and itching PSYCH: Negative for sleep disturbance, mood disorder and recent psychosocial stressors HEMATOLOGY/LYMPHOLOGY: Negative for prolonged bleeding, bruising easily or swollen nodes ENDOCRINE: Negative for cold or heat intolerance, polyuria, polydipsia and goiter NEURO: No history of headaches, syncope, paralysis, seizures or tremors EXAM: BP 122/78 Pulse (!) 57 Resp 16 Ht 179.2 cm (5' 10.55) Wt 89.4 kg (197 lb 3.2 oz) SpO2 98% BMI 27.86 kg/m General Appearance: Well appearing, alert, in no acute distress, well-hydrated, well nourished. Skin: Skin color, texture, turgor normal, no suspicious rashes or lesions. Head: Normocephalic, no masses, lesions, tenderness or abnormalities. Eyes: Anicteric sclera. Pupils are equally round and reactive to light. Extraocular movements are intact. . Ears: External ears normal, canals clear. Nose/Sinuses: Nares normal, septum midline, mucosa normal, no drainage or sinus tenderness. Oropharynx: Lips, mucosa, and tongue normal, teeth and gums normal, oropharynx normal. Neck: Supple, no adenopathy; thyroid symmetric, normal size, no bruits. Lungs: Lungs clear to auscultation. No wheezing, rhonchi, rales.. Heart: RRR. 2/6 blowing holosystolic murmur best heard at [facility]. Abdomen: Normal abdominal exam, Abdomen soft, non-tender. Bowel sounds normal. No masses, organomegaly. Extremities: No deformities, edema, skin discoloration, clubbing or cyanosis. Good capillary refill. . Peripheral Pulses: Normal. Neurologic: CN II-XII grossly intact. Lymph Nodes: No cervical lymphadenopathy and No supraclavicular lymphadenopathy. Health Maintenance List Depression Screening Never done Anxiety Screening Never done HIV Screening Never done DTaP,Tdap,Td Vaccine(1 - Tdap) Never done Pneumococcal Vaccine: 50+(1 of 1 - PCV) Never done Prostate Cancer Screening Discussion Never done Colorectal Cancer Screening due on 09/15/2022 Diabetes Screening due on 04/21/2024 Lipid Screening due on 04/21/2026 RSV Vaccine(1 - 1-dose 75+ series) due on 2039 Influenza Vaccine Completed Hepatitis C Screening Completed Shingrix Vaccine Completed Covid-19 Vaccine Completed ASSESSMENT/PLAN: 1. Encounter for medical examination to establish care - ICD9: V70.9, ICD10: Z00.00 (primary diagnosis) - Counseled on healthy diet and regular exercise - Discussed need for and benefit of weight loss. BMI 27.85 kg/(m^2) - Counseled on alcohol intake and health risks - Follow up for annual exam in one year - COMPLETE BLOOD COUNT AND DIFFERENTIAL - COMPREHENSIVE METABOLIC PANEL - LIPID PANEL, NONFASTING - THYROID STIMULATING HORMONE - HEMOGLOBIN A1C - PATHOLOGIST INTERPRETATION WITH CBC AND DIFF - CITRATED PLATELET COUNT 2. Newly recognized heart murmur - ICD9: 785.2, ICD10: R01.1 Benign sounding murmur without angina or cardiac symptoms. Obtain echo. Will call with results. - ECHO - PERFLUTREN LIPID MICROSPHERES 1.1 MG/ML INJECTION IN NS 10 ML - SODIUM CHLORIDE 0.9 % (FLUSH) INJECTION SYRINGE 3. Fatigue, unspecified type - ICD9: 780.79, ICD10: R53.83 Discussed getting closer to 7-8 hours of sleep at night and check labs as ordered. Call if symptomsnot improving. 4. Encounter for immunization - ICD9: V03.89, ICD10: Z23 - TDAP VACCINE, AGE 7+ YR (ADACEL, BOOSTRIX) - PNEUMOCOCCAL VACCINE, 20 VALENT (PREVNAR 20) 5. Screening for colon cancer - ICD9: V76.51, ICD10: Z12.11 - CONSULT TO GENERAL SURGERY Cee Thompson MD documented [facility] History of Present illness Narrative* Ileana Walter LPN - 12/10/2023 9:34 AM EDT 3rd attempt to reach pt by phone without success. Left a message for pt to call the office and ask to speak to a nurse. See message below. Letter also sent. Ileana Walter LPN * Ileana Walter LPN - 12/09/2023 8:47 AM EDT 2nd attempt to reach pt by phone. Left a message for pt to call the office and ask to speak to a nurse. When pt calls back please give message below. Ileana Walter LPN * Ileana Walter LPN - 11/27/2023 8:43 AM EDT Left a message for pt to call the office. Please give pt the message below. We have attempted to reach you by phone without success. You are past due for your colonoscopy and office visit with Dr. Thompson/Team. Please call the office to schedule apt with Dr. Thompson/Team. Pt's need to be seen at least once a year to keep provider. Last seen 03/21/21. After 3 years and not being seen by your provider/team, they will no longer be considered your provider. Please call the [phone] and ask to speak to a medical office scheduler. Thank you, CARLOS Olguin [facility]* Diagnosis Encounter for medical examination to establish care- Primary Newly recognized heart murmur Undiagnosed cardiac murmurs Fatigue, unspecified type Encounter for immunization Need for other specified prophylactic vaccination against single bacterial disease Screening for colon cancer Special screening for malignant neoplasms, colon documented in this encounter [facility] note* Diagnosis Hyperlipidemia, mixed- Primary Mixed hyperlipidemia documented in this encounter [facility] note* Diagnosis Lipoma of right upper extremity- Primary Lipoma of other specified sites Lipoma of left shoulder Pure hypercholesterolemia documented in this encounter [facility] note* Diagnosis Hyperkalemia- Primary Hyperpotassemia Hyperlipidemia, mixed Mixed hyperlipidemia documented in this encounter [facility] note* Diagnosis Screening for colon cancer Special screening for malignant neoplasms, colon documented in this encounter [facility] noteNo assessment information availableCalifornia [facility] Work Phone: Reason for referral (narrative)No reason for referral information availableCalifornia Hospital Medical Center Work Phone: Chief Complaint and Reason for Visit Chief Complaint Admit Date ABN ECHO ([place]) February 16, 2025 11:2 3am Reason for Visit Admit Date Ascending aorta dilatation February 16 11:23am Mitral regurgitation February 16, 2025 11: 23am Family History No Family History Records Found Relationship Condition Age at Onset Recorded Date/T altagracia grandfather Malignant neoplasm Unknown aunt Malignant neoplasm of colon Unknown Summary Purpose Advance Directives No Advanced Directives Records FoundNo Advanced Directives Records Found Additional Source Comments Source Comments (unrecognize d section and content) In the event this informatio n is protected by the Federal Confidentiality of Alcohol and Drug Abuse Patient Records regulations: The Federal rules restrict any use of the information to criminally investigate or prosecute any alcohol or drug abuse patient.[facility] SystemIn the event this information is protected by the Federal Confidentiality of Alcohol and Drug Abuse Patient Records regulations: The Federal rules restrict any use of the information to criminally investigate or prosecute any alcohol or drug abuse patient.[facility] SystemIn the event this information is protected by the Federal Confidentiality of Alcohol and Drug Abuse Patient Records regulations: The Federal rules restrict any use of the information to criminally investigate or prosecute any alcohol or drug abuse patient.[facility] SystemIn the event this information is protected by the Federal Confidentiality of Alcohol and Drug Abuse Patient Records regulations: The Federal rules restrict any use of the information to criminally investigate or prosecute any alcohol or drug abuse patient.[facility] SystemIn the event this information is protected by the Federal Confidentiality of Alcohol and Drug Abuse Patient Records regulations: The Federal rules restrict any use of the information to criminally investigate or prosecute any alcohol or drug abuse patient.[facility] SystemIn the event this information is protected by the Federal Confidentiality of Alcohol and Drug Abuse Patient Records regulations: The Federal rules restrict any use of the information to criminally investigate or prosecute any alcohol or drug abuse patient.[facility] SystemIn the event this information is protected by the Federal Confidentiality of Alcohol and Drug Abuse Patient Records regulations: The Federal rules restrict any use of the information to criminally investigate or prosecute any alcohol or drug abuse patient.[facility] SystemIn the event this information is protected by the Federal Confidentiality of Alcohol and Drug Abuse Patient Records regulations: The Federal rules restrict any use of the information to criminally investigate or prosecute any alcohol or drug abuse patient.[facility] SystemIn the event this information is protected by the Federal Confidentiality of Alcohol and Drug Abuse Patient Records regulations: The Federal rules restrict any use of the information to criminally investigate or prosecute any alcohol or drug abuse patient.[facility] SystemIn the event this information is protected by the Federal Confidentiality of Alcohol and Drug Abuse Patient Records regulations: The Federal rules restrict any use of the information to criminally investigate or prosecute any alcohol or drug abuse patient.[facility] SystemIn the event this information is protected by the Federal Confidentiality of Alcohol and Drug Abuse Patient Records regulations: The Federal rules restrict any use of the information to criminally investigate or prosecute any alcohol or drug abuse patient.[facility] SystemIn the event this information is protected by the Federal Confidentiality of Alcohol and Drug Abuse Patient Records regulations: The Federal rules restrict any use of the information to criminally investigate or prosecute any alcohol or drug abuse patient.[facility] Reason for Visit (unrecogniz ed section and content) Reason Onset Date Comments colon/Office visit due (Quality Team) 11/27/2023 Reason Comments Establish Care Reason Comments Results Reason Comments Derm Problem Cysts on right arm and left neck areas Reason Onset Date Comments Results 01/31/2025 Reason Comments Patient Question Reason Comments Consult colonoscopy Specialty Diagnoses / Procedures Referred By Delores frye Referred To Contact General Surgery Diagnoses Screening for colon cancer Procedures CONSULT TO GENERAL SURGERY OFFICE/OUTPATIENT [facility] 60 MINUTES Cee Thompson MD [address] [place] [address] Phone: tel: fax: Referral ID Status Reason Start Date Expiration Date V isits Requested Visits Authorized [id number] Closed PCP Requested Referral 11/01/2024 11/01/2025 1 1 Reason Comments Appointment Returning Patient's Call Care Teams (unrecognized sec tion and content) Investigator Welfare Relationship Specialty Start Date End Date Cee Thompson MD [address] [place] [address] PCP - General Family Medicine 09/08/17 Investigator Welfare Relationship Specialty Start Date End Date Cee Thompson MD [address] [place] [address] PCP - General Family Medicine 11/01/24 Investigator Welfare Relationship Specialty Start Date End Date Cee Thompson MD [address] [place] [address] PCP - General Family Medicine 11/01/24 Investigator Welfare Relationship Specialty Start Date End Date Cee Thompson MD [address] [place] [address] PCP - General Family Medicine 11/01/24 Asuncion Leyva APRN.DRIER HELPER [address] [place] [address] [facility] 12/13/24 Investigator Welfare Relationship Specialty Start Date End Date Cee Thompson MD [address] [place] [address] PCP - General Family Medicine 11/01/24 SusuarAsuncion APRN.DRIER HELPER [address] [place] [address] [facility] 12/13/24 Samia Bruce APRN.DRIER HELPER [address] [place] [address] [facility] 01/06/25 Investigator Welfare Relationship Specialty Start Date End Date Cee Thompson MD [address] [place] [address] PCP - General Family Medicine 11/01/24 Podlogar, Asuncion, GRADES 9 THRU 12 VISITING TEACHER.DRIER HELPER [address] [place] [address] [facility] 12/13/24 Samia Bruce GRADES 9 THRU 12 VISITING TEACHER.DRIER HELPER [address] [place] [address] [facility] Medicine 01/06/25 Investigator Welfare Relationship Specialty Start Date End Date Cee Thompson MD [address] [place] [address] PCP - General Family Medicine 11/01/24 Podlogar, Asuncion, GRADES 9 THRU 12 VISITING TEACHER.DRIER HELPER [address] [place] [address] [facility] 12/13/24 Samia Bruce, GRADES 9 THRU 12 VISITING TEACHER.DRIER HELPER [address] [place] [address] [facility] 01/06/25 Investigator Welfare Relationship Specialty Start Date End Date Cee Thompson MD [address] [place] [address] PCP - General Family Medicine 11/01/24 Podlogar, Asuncion, GRADES 9 THRU 12 VISITING TEACHER.DRIER HELPER [address] [place] [address] [facility] 12/13/24 Samia Bruce, GRADES 9 THRU 12 VISITING TEACHER.DRIER HELPER [address] [place], [place] [address] [facility] 01/06/25 Investigator Welfare Relationship Specialty Start Date End Date Cee Thompson MD [address] [place], [place] [address] PCP - General Family Medicine 11/01/24 Podlogar, Asuncion, GRADES 9 THRU 12 VISITING TEACHER.DRIER HELPER [address] [place], [place] [address] [facility] Medicine 12/13/24 Samia Bruce, GRADES 9 THRU 12 VISITING TEACHER.DRIER HELPER [address] [place], [place] [address] [facility] 01/06/25 Investigator Welfare Relationship Specialty Start Date End Date Cee Thompson MD [address] [place], [place] [address] PCP - General Family Medicine 11/01/24 Podlogar, Asuncion, GRADES 9 THRU 12 VISITING TEACHER.DRIER HELPER [address] [place], [place] [id number] [facility] 12/13/24 Samia Bruce, GRADES 9 THRU 12 VISITING TEACHER.DRIER HELPER [address] [place], [place] [id number] [facility] Medicine 01/06/25 Team Status: Active Member Role/Relationship Status Dates Dr. Keegan Thompson MD Family Provider Active Dr. Keegan Thompson MD Primary Care Provider Acti ve Team Status: Inactive Member Role/Relationship Status Dates Dr. Keegan Thompson MD Primary Care Provider Acti ve Start: February 16, 2025 End: February 16, 2025 Dr. Keegan Thompson MD Referring Provider Active Start: February 16, 2025 End: February 16, 2025 Dr. He Baeza MD Attending Provider Active S tart: February 16, 2025 End: February 16, 2025 Investigator Welfare Relationship Specialty Start Date End Date Cee Thompson MD [address] [place], [place] [address] PCP - General Family Medicine 11/01/24 Asuncion Leyva GRADES 9 THRU 12 VISITING TEACHER.DRIER HELPER [address] [place], [place] [id number] [facility] 12/13/24 Samia Bruce APRN.DRIER HELPER [address] [place], [place] [id number] [facility] 01/06/25 Team Status: Active Member Role/Relationship Status Dates Dr. Keegan Thompson MD Primary Care Provider Acti ve Team Status: Inactive Member Role/Relationship Status Dates Dr. Keegan Thompson MD Primary Care Provider Acti ve Start: February 16, 2025 End: February 16, 2025 Dr. eH Baeza MD Attending Provider Active S tart: February 16, 2025 End: February 16, 2025 Dr. He Baeza MD Referring Provider Active S tart: February 16, 2025 End: February 16, 2025 Goals (unrecognized section and content) Goals may be documented in a n alternate sectionGoals may be documented in an alternate section (unrecognized sect ion and content) No Status Records FoundNo Status Records Found INFORMATION SOURCE (unrecogn ized section and content) DATE CREATED AUTHOR 02/18/2025 [facility] DATE CREATED AUTHOR AUTHOR'S ORGANIZ ATION 02/22/2025 [facility] FOR RECORDS PERTAINING TO PATIENTS WHO ARE OR HAVE BEEN ENROLLED IN A CHEMICAL DEPENDENCY/SUBSTANCEABUSE PROGRAM, SOME INFORMATION MAY BE OMITTED. This clinical summary was aggregated from multiple sources. Caution should be exercised in using it in the provision of clinical care. This summary normalizes information from multiple sources, and as a consequence, information in this document may materially change the coding, format and clinical context of patient data. In addition, data may be omitted in some cases. CLINICAL DECISIONS SHOULD BE BASED ON THE PRIMARY CLINICAL RECORDS. [facility] [employer] [facility]. provides no warranty or guarantee of the accuracy or completeness of information in this document.
--- NOTE | 2025-03-07 09:47 | CL.D_ITS ---
Patient Name: MIGUEL HAMMER Study Date: 02/25/2025 Performing: He Baeza MD Ht: 72 inches 182.88 cm : 1965 Wt: 181.99 lbs 82.55 kg Age: 59 Gender: male BSA: 2.05 PROCEDURE(S) PERFORMED [id number])LHC/COR/LV CLINICAL PROFILE AND INDICATIONS Indications: Valvular Disease Heart Failure: None Stress/Imaging Stress/Image Study Performed: No CAD Presentations: No Sxs, no angina. CONCLUSIONS Normal coronary arteries Normal LV size, wall motion,and systolic function Mitral Valve Insufficiency Moderate to severe RECOMMENDATIONS Referred for mitral valve repair DESCRIPTION OF PROCEDURE The patient arrived to the procedure lab. The risks and benefits of the procedure as well as a full description of our services here and current unavailability of surgical backup were fully explained to the patient and/or their significant other prior to the catheterization. The Timeout was completed, verifying the correct patient and procedure. The patient's procedural site was prepped and draped in the usual fashion. Local anesthetic was given subcutaneously to right radial region with Lidocaine 2%. Using a modified Seldinger technique, Right Coronary Artery selective angiography was then performed in multiple views using a 5 Fr. 4.0 [place] catheter. Left Coronary Artery selective angiography was performed in multiple views using a 5 Fr. 4.0 [place] catheter. Left Coronary Artery selective angiography was performed in multiple views using a 5 Fr. JL3.5 catheter. Left Ventriculography was performed in ROBLES projection using a 5 Fr. [place] catheter. LV to AO pullback pressures were then recorded.The arterial sheath was pulled and a TR Band was applied for hemostasis 10 ml of air CORONARY ANGIOGRAPHY DOMINANCE: Right Dominant LEFT HEART ASSESSMENT Left Ventricular Ejection Fraction: by LV Gram 70 % Normal LV wall motion Normal Left Ventricular systolic function LEFT MAIN: Angiographically normal LEFT ANTERIOR DESCENDING ARTERY: Angiographically normal CIRCUMFLEX ARTERY: Angiographically normal RIGHT CORONARY ARTERY: Angiographically normal VALVE FINDINGS: Mitral Valve Prolapse Moderate Mitral Valve Insufficiency - Grade 3 COMPLICATIONS No Complications PROCEDURE MEDICATIONS Fentanyl 50 mcg IV Versed 1 mg IV Oxygen: 2 L/min via nasal cannula Aspirin (325mg) 1 Tabs PO @ 02/25/2025 09:47:57 Heparin given IA 02/25/2025 10:29:30 Verapamil 2.5mg, Ntg 100mcgs, 3000 units of Heparin given IA 02/25/2025 10:29:30 SUMMARY OF HEMODYNAMIC DATA Time AIR REST ECG 09:47:43 AO 102/65 (80) SA 10:33:15 LV 112/2, 10 10:44:30 LV 117/2, 15 10:44:37 LV 110/0, 11 10:45:32 LV 113/1, 11 10:45:38 LVp 114/0, 10 10:45:43 AOp 121/72 (93) 10:45:48 13:18:28 Signed By He Baeza MD On 02/25/2025 13:21:16 He Baeza MD
== END 2025-02-25 13:15 | disposition home or self-care (01) ==
LOC: CVS 09:55 → CLSP 09:55
PROVIDERS: PCP Family Medicine; Referring Provider Internal Medicine Cardiovascular Disease; Visit Provider Internal Medicine Cardiovascular Disease
DX: I34.1 Nonrheumatic mitral (valve) prolapse (principal); I34.0 Nonrheumatic mitral (valve) insufficiency; R93.1 Abnormal findings on diagnostic imaging of heart and coronary circulation; E78.5 Hyperlipidemia, unspecified; I77.810 Thoracic aortic ectasia; Z79.899 Other long term (current) drug therapy
CPT/HCPCS: 93312; 93320; 93325; 93458; 99152; 99153; Q9967; A4216; C1769; C1894

== ENCOUNTER → 2025-05-02 | Outpatient (CLI) | payer BC, SELFPAY ==
--- NOTE | 2025-05-02 09:01 | RAD_ITS ---
PROCEDURE: CHEST PA AND LATERAL 05/02/2025 REASON FOR EXAM: FEVER, POST-OP VALVE TECHNIQUE: Procedure Code: RADCXR Modality: DX Procedure: CHEST PA AND LATERAL COMPARISON: None. FINDINGS: There is a right pleural effusion. There is right basilar atelectasis. There is linear scarring or atelectasis in the lingula. The heart size is normal. There is a mitral valve prosthesis. The upper abdominal bowel gas pattern is normal. There is mild levoscoliosis of the thoracic spine. RAD/Chest PA and Lateral IMPRESSION: Right pleural effusion with right basilar atelectasis. Mitral valve prosthesis . Other findings as noted. Reading Location: [id number]
[2025-05-02 10:37] LABS: Hematocrit 35.9 % (40-54); Hemoglobin 12.3 g/dL (13.0-16.5); Immature Granulocytes Count 0.020 X10^3/uL (0.0-0.0); Mean Corp Hgb Conc 34.3 g/dL (32-36); Mean Corpuscular Volume 88.9 fL (80-94); Mean Platelet Vol. 11.0 fl (6.2-12.0); NRBC Flagged by Analyzer 0 % (0-5); POSITIVE COUNT YES; RBC Distribution Width CV 11.9 % (11.6-14.6); RBC Distribution Width SD 38.0 fl (35.1-43.9); Red Blood Count 4.04 M/mm3 (4.6-6.2); White Blood Count 8.0 K/mm3 (4.4-11.0)
[2025-05-02 11:32] LABS: Differential Indicated SCAN CRITERIA MET
== END | disposition home or self-care (01) ==
LOC: RAD 09:00
PROVIDERS: PCP Family Medicine; Referring Provider Student in an Organized Health Care Education/Training Program; Visit Provider Student in an Organized Health Care Education/Training Program
DX: R89.8 Other abnormal findings in specimens from other organs, systems and tissues (principal); I34.1 Nonrheumatic mitral (valve) prolapse; Z98.890 Other specified postprocedural states
CPT/HCPCS: 36415; 71046; 85025

== ENCOUNTER 2025-05-10 17:23 | Emergency (ER) | payer BC, SELFPAY ==
[2025-05-10 08:42] VITALS: BMI 24.1
[2025-05-10 17:24] VITALS: BP 132/99; PULSE 88; RESP 16; TEMP 36.9; O2SAT 97; BMI 24.5
[2025-05-10 17:39] VITALS: BP 130/79; PULSE 88; RESP 14; TEMP 36.7; O2SAT 94
--- NOTE | 2025-05-10 17:40 | EKG12_ITS ---
Test Reason : FEVER Blood Pressure : */* mmHG Vent. Rate : 86 BPM Atrial Rate : 86 BPM P-R Int : 256 ms QRS Dur : 112 ms QT Int : 380 ms P-R-T Axes : 12 -29 16 degrees QTcB Int : 454 ms Sinus rhythm with 1st degree A-V block Incomplete right bundle branch block Moderate voltage criteria for LVH, may be normal variant ( R in aVL , [place] product ) Poor R-wave progression ; consider anterior infarct, lead placement, or normal variant Abnormal ECG Confirmed by KASSIE HILL MD ([id number]), photographic editor ZAINAB LEDEZMA ([id number]) on 05/11/2025 10:55:14 AM Referred By: BB Confirmed By: KASSIE HILL MD
--- NOTE | 2025-05-10 17:41 | EDS_ITS ---
HPI History of Present Illness Chief Complaint: Fever Informant: patient and spouse/S.O. Narrative Narrative: Patient is a 60-year-old male with a history of mitral valve prolapse and regurgitation, presenting with fever and chills. - Underwent robotic mitral valve repair at [facility] on 04/22 (2-3 weeks ago). - Reports onset of chills yesterday after a 30-40 minute walk and a nap. - Recorded a temperature of 101.2?F at home, which decreased to 100.5?F before bed; temperature returned to normal (98.7?F) upon waking. - Took oxycodone at 1630 and 2330 for postoperative soreness and difficulty sleeping. - Experienced mild fever today, not as high as yesterday. Otherwise asymptomatic today. - Reports sweating in bed for the past three nights. - Denies any acute cough, dyspnea, leg pain, sore throat, earache, congestion, dysuria, emesis, or diarrhea. Has had some dyspnea with exertion since his surgery however. - Reports a headache, attributing it to oxycodone use. - Concerned about potential infection due to recent heart surgery. [facility] Medical History Systolic murmur Hyperlipidemia Multiple lipomas Abnormal echocardiogram Home Medications ?Medication ?Instructions ?Recorded ?Last Taken ?Type atorvastatin 10 mg tablet (Lipitor) 10 mg PO QDAY 01/25 02/18 Unknown History acetaminophen 500 mg tablet 500 mg PO Q6H PRN 05/02/25 Unknown History (Tylenol Extra Strength) aspirin 81 mg tablet,delayed 81 mg PO QDAY 05/02/25 Un known History release (Adult Low Dose Aspirin) metoprolol succinate 25 mg 25 mg PO QDAY 05/02/25 Unkn own History tablet,extended release 24 hr oxycodone 5 mg tablet 5 mg PO 4X/DAY PRN 05/02/25 Unknown History amoxicillin 500 mg capsule 2,000 mg (4 x 500 mg) PO .p rn #4 05/09/25 Unknown Rx caps Allergy/AdvReac Type Severity Reaction Status Date / Time No Known Allergies Allergy Verified 05/10/25 17:26 Family History Grandfather Cancer Aunt Colon cancer Surgical History Hx of mitral valve repair (~02/2025) History of repair of anterior cruciate ligament of right knee Social History Smoking Status: Never smoker alcohol intake: current alcohol intake frequency: a few times a month substance use type: does not use ROS ROS ED Constitutional Constitutional ED: Reports chills, fatigue, fever(s) and sweats Eyes Eyes: Denies change in vision or diplopia ENT ENT ED: Denies rhinorrhea or sore throat Cardiovascular Cardiovascular: Denies chest pain, orthopnea or palpitations Respiratory/Chest Respiratory/Chest: Reports dyspnea on exertion; Denies cough or orthopnea Gastrointestinal Gastrointestinal: Denies abdominal pain, diarrhea, nausea or vomiting Genitourinary Genitourinary ED: Denies dysuria or hematuria Musculoskeletal Musculoskeletal: Denies back pain or neck pain Integumentary Denies abscess or rash Neurologic Neurologic: Reports headache(s); Denies paresthesias or weakness Psychiatric Psychiatric: Denies anxiety or suicidal thoughts EXAM Physical Exam Const Vital Signs: 05/10/25 17:24 05/10/25 17:39 05/10/25 17:39 Temperature 98.4 F 98.1 F Temperature Source Oral Oral Pulse Rate 88 88 Respiratory Rate 16 14 Respiratory Effort Normal Respiratory Pattern Normal Blood Pressure 132/99 H 130/79 H Blood Pressure Mean 110 96 Pulse Ox 97 94 Oxygen Delivery Method Room Air Room Air 05/10/25 18:14 05/10/25 18:26 05/10/25 19:00 Temperature 98.4 F 98.4 F Temperature Source Oral Oral Pulse Rate 81 82 Respiratory Rate 19 H 19 H Respiratory Effort Respiratory Pattern Blood Pressure 120/87 H 120/87 H Blood Pressure Mean 98 98 Pulse Ox 100 97 Oxygen Delivery Method Room Air Room Air Room Air 05/10/25 19:38 Temperature 98.4 F Temperature Source Pulse Rate 83 Respiratory Rate 19 H Respiratory Effort Respiratory Pattern Blood Pressure 128/92 H Blood Pressure Mean 104 Pulse Ox 96 Oxygen Delivery Method Positive well nourished and well developed Constitutional Narrative: Well-appearing General Appearance ED: well developed and NAD HEENT Reports TM's clear and moist mucous membranes HEENT Narrative: Posterior oropharynx clear. No sinus tenderness. No rhinorrhea. normocephalic and atraumatic Tympanic Membrane ED: Yes TM's clear Eyes PERRL and EOMs intact bilaterally Neck full ROM, no lymphadenopathy and supple Chest Wall inspection of chest normal and palpation of chest normal Chest Narrative: Right anterolateral chest wall surgical incisions benign, without any dehiscence, erythema, tenderness, or signs of infection. Resp normal respiratory effort and clear to auscultation bilaterally Resp Narrative: No splinting with deep inspiration. Cardio regular rate, regular rhythm and no murmurs GI non-tender and non-distended Auscultation: normoactive bowel sounds Palpation: soft Back/Spine no CVA tenderness General Back: other FROM Extremity normal to inspection Extremity Narrative: On fingers no splinter hemorrhages or Osler nodes. General Extremety ED: Negative for edema, pulses abnormal or tenderness General Extremity: Negative for edema or pulses abnormal Neuro oriented x3, CN's II-XII intact bilaterally and no sensory deficits noted Sensorium / Orientation: awake and alert Motor Exam: strength 5/5 throughout Psych mental status grossly normal Skin no rashes or lesions noted and no wounds Skin Narrative: Nontender postoperative surgical incisions right chest wall see above. MDM MDM MDM Narrative Medical decision making narrative: Assessment: The patient is a 60-year-old male with recent robotic mitral valve repair on 04/22 presenting for subjective fever to 101.2 ?F yesterday with chills and night sweats, concerned about postoperative infection. Exam today is benign with normal vital signs and no murmur. Differential includes occult bacteremia/endocarditis related to recent valve surgery, viral illness, and, less likely, pneumonia, empyema, or postoperative urinary infection. Normal WBC 6.4 without left shift, lactate <1, normal urinalysis, and chest x-ray showing no acute pneumonia with only mild stable right pleural effusion/atelectasis argue strongly against sepsis, pneumonia, or UTI. COVID/flu/RSV swab is negative. Patient also having some worsening dyspnea with exertion since his surgery, therefore considering possibility of postoperative pulmonary embolus, obtained a D-dimer but it was significantly elevated over 4 so he was sent for CT angiography of the chest which was negative for PE, did show pleural effusion more so on the right than the left which may explain his dyspnea on exertion. Given these reassuring findings and afebrile status in the ED, viral illness is more likely and risk of occult bacteremia is extremely low; antibiotics are not indicated. I suspicion for empyema is extremely low given his labs and lack of toxicity or acute chest symptoms. Recommend follow-up with his cardiothoracic surgeon with regards to the pleural effusion. It is also possible that his low- grade temperatures are related to atelectasis that are associated with the effusions. Plan: - Discussed results, assessment, and low likelihood of bacterial infection with patient and ; they agree with plan. - Provided return precautions and instructions for close outpatient follow-up with cardiac surgery team and PCP. - Discharged with incentive spirometer (if does not already have one) and instructions for use. - Discharged home in stable condition. Diagnostics: - Blood cultures x2 obtained; results pending. - CBC: WBC 6.4 K/?L, no left shift. - Serum lactate <1 mmol/L. - Urinalysis: normal. - Chest x-ray 2view: no acute pneumonia; mild right pleural effusion/atelectasis similar to prior. Independently interpreted by me, Silvano Wilburn. - COVID-19 / Influenza / RSV multiplex swab: negative. - CTA chest showing right greater than left pleural effusions, no pulmonary embolus, otherwise unremarkable. I reviewed the images and the report which I agree with. Reevaluations: - Re-evaluated after laboratory and imaging results: afebrile, hemodynamically stable, no new symptoms; results reviewed and plan discussed with patient and . Lab Data Attestation: I reviewed the patient's lab results. Labs: Laboratory Results - last 24 hr 05/10/25 05/10/25 05/10/25 17:51 17:57 17:58 WBC 6.4 RBC 3.90 L Hgb 11.6 L Hct 34.4 L MCV 88.2 MCH 29.7 MCHC 33.7 RDW Std Deviation 37.1 RDW Coeff of Mauri 11.6 Plt Count TNP MPV TNP Immature Gran % (Auto) 0.300 Neut % (Auto) 64.5 Lymph % (Auto) 15.9 L [place] % (Auto) 11.4 H Eos % (Auto) 6.8 H Baso % (Auto) 1.1 H Absolute Neuts (auto) 4.2 Absolute Lymphs (auto) 1.02 Nucleated RBC % 0 Differential Comment SCANNED Platelet Estimate ADEQUATE PT 13.7 INR 1.0 APTT 28.2 D-Dimer Quant (PE/DVT) 4.43 H* Sodium 137 Potassium 4.4 Chloride 100 Carbon Dioxide 27.1 Anion Gap 10 BUN 13 Creatinine 0.95 Estim Creat Clear Calc 89.63 Est GFR (MDRD) Non-Af 91 BUN/Creatinine Ratio 13.8 Glucose 102 H Lactic Acid < 1.0 Calcium 9.4 Total Bilirubin 0.50 AST 17 ALT 24 Alkaline Phosphatase 71 Total Creatine Kinase 58 Troponin T High Sens 17 Total Protein 7.4 Albumin 3.9 Globulin 3.4 Albumin/Globulin Ratio 1.1 Urine Color Yellow Urine Clarity Clear Urine pH 6.0 Ur Specific [place] 1.010 Urine Protein Negative Urine Glucose (UA) Normal Urine Ketones Negative Urine Occult Blood Negative Urine Nitrite Negative Urine Bilirubin Negative Urine Urobilinogen Normal Ur Leukocyte Esterase Negative Urine RBC 0-5 SEEN Urine WBC 0-5 SEEN Ur Squamous Epith Cells 0-5 SEEN Urine Bacteria 0 SEEN Urine Mucus 0 SEEN Radiography Diagnostic Testing: Clinical Impression(s) from Imaging Studies Chest X-Ray 05/10/25 18:15 IMPRESSION: Small right basilar pleural effusion/atelectasis, similar to prior. Reading Location: [facility] Chest CTA 05/10/25 19:51 IMPRESSION: No evidence of pulmonary embolus. Bilateral pleural effusions, [id number] with associated compressive atelectasis. Pulmonary nodules measuring up to 7 mm. Consider six-month follow-up CT as per Fleischner society guidelines. Additional findings as above. Reading Location: [facility] Rhythm Strip Rhythm Strip: Sinus Rhythm Rate: 86 Ectopy: None EKG Initial EKG: Attestation: I personally reviewed and interpreted this EKG as follows: Interpretation: Sinus Rhythm Comments: Leftward axis. IRBBB. Prior: Changed ([place] is different but otherwise unchanged.) Discharge Plan Triage Chief Complaint: Fever ED Provider: Silvano Wilburn Dx/Rx/DC Orders Clinical Impression: Fever, History of surgery to heart and great vessels, Bilateral pleural effusion, Atelectasis of both lungs, Dyspnea on exertion Instructions: Atelectasis, ED FUO Adult, ED Pleural Effusion Prescriptions: No Action atorvastatin [Lipitor] 10 mg tablet 10 mg PO QDAY aspirin [Adult Low Dose Aspirin] 81 mg tablet,delayed release (DR/EC) 81 mg PO QDAY acetaminophen [Tylenol Extra Strength] 500 mg tablet 500 mg PO Q6H PRN metoprolol succinate 25 mg tablet extended release 24 hr 25 mg PO QDAY oxycodone 5 mg tablet 5 mg PO 4X/DAY PRN amoxicillin 500 mg capsule 2,000 mg PO .prn Qty: 4 3RF Rx Instructions: PRN for dental care. take 1000mg 1 hour prior to dental procedures Primary Care Provider: Keegan Thompson Referrals: Doctor,Your [Non-Staff, None] - As soon as possible Activity Restrictions/Additional Instructions: - Blood cultures were collected; results will be available in about two days. - Lab tests showed a normal white blood cell count and normal lactic acid level. - Chest X-ray showed no pneumonia. - COVID-19, influenza, and RSV tests were negative. - Urine test was normal. - No antibiotics are needed at this time. - Arrange close outpatient follow-up with your heart surgeon or business liaison officer to monitor your recovery. Print Language: Ukrainian Disposition Disposition: Home, Self Care
[2025-05-10 17:58] LABS: Mucous, Urine 0 SEEN /hpf (<or=2+)
[2025-05-10 18:09] LABS: Color, Urine Yellow (Yellow); Glucose, Dipstick Normal (Normal); Ketone-Dipstick Negative (Negative); Leukocyte Esterase-Dipstick Negative /ul (Negative); Nitrite-Dipstick Negative (Negative); Occult Blood-Urine Negative /ul (Negative); Protein-Dipstick Negative (Negative); Specific Gravity, Urine 1.010 (1.002-1.030); Urine Bilirubin Dipstick Negative (Negative)
--- NOTE | 2025-05-10 18:15 | RAD_ITS ---
PROCEDURE: CHEST PA AND LATERAL 05/10/2025 REASON FOR EXAM: FEVER; RECENT CARDIAC SURGERY TECHNIQUE: Procedure Code: RADCXR Modality: DX Procedure: CHEST PA AND LATERAL COMPARISON: 05/02/2025 FINDINGS: Lungs/Pleura: Small right basilar pleural effusion/atelectasis. Left lung is clear. No pneumothorax. Heart/Mediastinum: Within normal limits. Probable mitral annuloplasty. Bones/Soft tissues: Mild degenerative changes of the spine. RAD/Chest PA and Lateral IMPRESSION: Small right basilar pleural effusion/atelectasis, similar to prior. Reading Location: [id number]
[2025-05-10 18:16] LABS: Hematocrit 34.4 % (40-54); Hemoglobin 11.6 g/dL (13.0-16.5); Immature Granulocytes Count 0.020 X10^3/uL (0.0-0.0); Mean Corp Hgb Conc 33.7 g/dL (32-36); Mean Corpuscular Volume 88.2 fL (80-94); NRBC Flagged by Analyzer 0 % (0-5); POSITIVE COUNT YES; RBC Distribution Width CV 11.6 % (11.6-14.6); RBC Distribution Width SD 37.1 fl (35.1-43.9); Red Blood Count 3.90 M/mm3 (4.6-6.2); White Blood Count 6.4 K/mm3 (4.4-11.0)
[2025-05-10 18:18] LABS: Differential Indicated SCAN CRITERIA MET
[2025-05-10 18:26] VITALS: BP 120/87; PULSE 81; RESP 19; TEMP 36.9; O2SAT 100
[2025-05-10 18:38] LABS: AST(SGOT) 17 U/L (<=37); Alanine Aminotransfer ALT/SGPT 24 U/L (<=46); Albumin, Serum 3.9 g/dL (3.4-4.8); Alkaline Phosphatase 71 U/L (40-129); Anion Gap 10 (5-15); BUN 13 mg/dL (4-19); BUN/Creat Ratio 13.8 RATIO (10-20); CPK Total, Creatine Kinase 58 U/L (24-195); Calcium,Total 9.4 mg/dL (7.6-11.0); Carbon Dioxide 27.1 mmol/L (21.0-32.0); Chloride 100 mmol/L (98-108); Estimated Creatinine Clearance 89.63 ml/min (50-250); Globulin 3.4 g/dL (2.2-4.2); Glucose 102 mg/dL (70-99); Potassium 4.4 mmol/L (3.3-5.1)
[2025-05-10 18:40] LABS: Partial Thromboplast Time 28.2 Seconds (24.1-36.2); Prothrombin Time (Protime)PT. 13.7 SECONDS (11.7-14.9)
[2025-05-10 18:59] LABS: Red Blood Cells-Urine 0-5 SEEN /hpf (0-5); Squamous Epithelial Cells - UA 0-5 SEEN /hpf (0-5)
[2025-05-10 19:00] VITALS: BP 120/87; PULSE 82; RESP 19; TEMP 36.9; O2SAT 97
[2025-05-10 19:00] LABS: Troponin T High Sensitivity 17 ng/L (<=22)
[2025-05-10 19:22] LABS: Differential Comment SCANNED
[2025-05-10 19:38] VITALS: BP 124/79; PULSE 82; RESP 18; TEMP 36.9; O2SAT 97
[2025-05-10 19:47] LABS: D-Dimer Quantitative (DVT/PE) 4.43 FEU/ug/m (0.27-0.49)
--- NOTE | 2025-05-10 19:51 | CT_ITS ---
PROCEDURE: CTA CHEST W/WO CONTRAST 05/10/2025 REASON FOR EXAM: DYSPNEA POSTOP, ELEVATED D-DIMER TECHNIQUE: Procedure Code: CTCTACHWW Modality: CT Procedure: CTA CHEST W/WO CONTRAST Multiplanar Sagittal and Coronal images were obtained. One or more dose reduction techniques were used (e.g., Automated exposure control, adjustment of the mA and/or kV according to patient size, use of iterative reconstruction technique). CONTRAST: Isovue 370 VOLUME: 95 mL RADIATION DOSE SUMMARY: CTDlvol: 14.25 mGy DLP: 472.93 mGycm COMPARISON: Radiograph from May 10, 2025 FINDINGS: There is a moderate-size right pleural effusion and a small left pleural effusion. There is compressive atelectasis involving the right lower lobe. No pneumothorax. Scarring and subsegmental atelectasis at the left lung base. There is a 0.7 cm pleural-based nodule in the left lower lobe on image 115, series 2. There is a 3 mm nodule in the right upper lobe on image 189, series 2 and a 3 mm nodule in the superior segment of the left lower lobe on image 167, series 2. No pneumothorax. No focal airspace consolidation. There is trace pericardial fluid. There may be an aortic valve replacement. There is no evidence of pulmonary arterial filling defect to suggest the presence of a pulmonary embolus. The visualized subdiaphragmatic viscera are unremarkable. CT/CTA Chest W/WO Contrast IMPRESSION: No evidence of pulmonary embolus. Bilateral pleural effusions, [id number]-left with associated compressiv e atelectasis. Pulmonary nodules measuring up to 7 mm. Consider six-month follow-up CT as per Fleischner society guidelines. Additional findings as above. Reading Location: [facility]
== END 2025-05-10 20:52 | disposition home or self-care (01) ==
PROVIDERS: Emergency Provider Emergency Medicine; PCP Family Medicine; Visit Provider Emergency Medicine
DX: R50.9 Fever, unspecified (principal); J90 Pleural effusion, not elsewhere classified; J98.11 Atelectasis; I34.1 Nonrheumatic mitral (valve) prolapse; I34.0 Nonrheumatic mitral (valve) insufficiency; R51.9 Headache, unspecified; R06.09 Other forms of dyspnea; I45.10 Unspecified right bundle-branch block; E78.5 Hyperlipidemia, unspecified; Z95.2 Presence of prosthetic heart valve; Z79.82 Long term (current) use of aspirin; Z79.899 Other long term (current) drug therapy
CPT/HCPCS: 71046; 71275; 80053; 81001; 82550; 83605; 84484; 85025; 85379; 85610; 85730; 87040; 87086; 87631; 93005; 99284; Q9967; A4216

== ENCOUNTER → 2025-05-10 | Outpatient (CLI) | payer BC, SELFPAY ==
--- NOTE | 2025-05-10 07:57 | CR.HP_ITS ---
CR - History & Physical General Arrival date:: 05/10/25 Arrival time:: 07:57 Date of Referral:: 05/03/25 Date of CR Evaluation:: 05/10/25 Referring Physician: Dr. Baeza Primary Diagnosis: Heart Valve Repair History of Present Cardiac Event Onset Date Heart valve replacement or repair:: Yes (onset 04/22/2025) Medications Ambulatory Orders Medication Instructions Recorded atorvastatin 10 mg tablet (Lipitor) 10 mg PO QDAY 01/25 02/18 acetaminophen 500 mg tablet 500 mg PO Q6H PRN 05/02/25 (Tylenol Extra Strength) aspirin 81 mg tablet,delayed 81 mg PO QDAY 05/02/25 release (Adult Low Dose Aspirin) metoprolol succinate 25 mg 25 mg PO QDAY 05/02/25 tablet,extended release 24 hr oxycodone 5 mg tablet 5 mg PO 4X/DAY PRN 05/02/25 amoxicillin 500 mg capsule 2,000 mg (4 x 500 mg) PO .p rn #4 05/09/25 caps Allergies Allergies No Known Allergies Allergy (Verified 05/02/25 08:05) Sleep Disorder Evaluation Hx of Sleep Apnea: No Do you snore loudly (louder than talking or can be heard through closed doors)?: No Do you often feel tired/ fatigued/ sleepy during daytime?: No Has anyone observed you stop breathing during sleep?: No History of Hypertension (for STOP score): No STOP Results: Negative Advanced Directives Advanced Directives Do you have a Healthcare Power of Auto Wash Buffer?: No Living Will: No Advance Directives Information Provided: No Advance Directives on File: No DNR Order?:: No Past Medical History Covid-19 Screening Physicial Symptoms Other Clinical Concerns Exposure Risk Pertinent Comorbidities Has a serious heart condition:: Yes Past Medical Illness Medical History Systolic murmur Hyperlipidemia Multiple lipomas Abnormal echocardiogram Past Surgical History Surgical History Hx of mitral valve repair (~02/2025) History of repair of anterior cruciate ligament of right knee Family History Summary Family History Grandfather Cancer Aunt Colon cancer Social History Smoking History Smoking Status: Never smoker Alcohol Use Alcohol Usage: Yes (rare) Substance Abuse Hx Substance Use: No Occupation Occupation (List type of work in comments):: Employed Social Environment Status Marital Status: Current Living Arrangements Living Environment:: Family Children How many children do you have?: 4 Do any of your children live nearby?: Yes Safety Do you feel safe in your surroundings?: Yes Assistance Do you need any assistance at home?: no Review of Systems Review of Systems Hints Review of Present Symptoms: Reports Shortness of Breath with Exertion, Operative Discomfort, Dizziness/Lightheadedness, Fatigue, Appetite - Normal and Appetite - Special Diet; Denies Shortness of Breath at Rest, PVD, Angina, Wound Healing, Heart Arrhythmia/Irregularities, Sleep - Normal or Sexual Changes Pain Is Patient Pain Free?: Yes Risk Factor Assessment Chief Complaint Chief Complaint: Heart Valve Repair Vital Signs Pulse Ox: 97 Blood Pressure: 116/80 Pulse Pulse Rate: 83 Pulse Rhythm: Regular Hypertension Blood Pressure Sitting - Right Arm: 116/80 Obesity Height: 6 ft Weight:: 178 lb Weight in Pounds: 178.0 lbs Body Mass Index (BMI): 24.1 Nutritional Referral for Obesity: No Physical Inactivity Physical Inactivity: Reg Exercise 30 min/day Risk Stratification Risk Guidelines: Lowest Risk: Risk Factor for Smoking, Moderate Risk: Risk Factor for Diabetes, Risk Factor for Obesity, Risk Factor for Hypertension, Risk Factor for Sedentary Lifestyle and Risk Factor for Depression and Highest Risk: Risk Factor for Dyslipidemia For Smoking Smoking Risk Guidelines For Dyslipidemia Dyslipidemia Risk Guidelines For Diabetes Mellitus Diabetes Risk Guidelines For Obesity/Overweight Obesity/Overweight Risk Guidelines For Hypertension Hypertension Risk Guidelines For Sedentary Lifestyle Sedentary Lifestyle Risk Guidelines For Depression Depression Risk Guidelines Family History Family History Grandfather Cancer Aunt Colon cancer Motivation Motivation to Participate On a scale of 1 to 10, how prepared are you to commit to attending program?: 9 What do you see as barriers to successfully being able to complete the program?: nothing What do you see as the benefits of succesfully completing the program? In other words, what do you hope to get out of participating in the program?: More energy, less SOB Are there issues you are dealing with that will interfere with completing the program?: no Do you have a spouse or signficant other, family or friends who will help support you to complete the program?: yes
--- NOTE | 2025-05-10 08:02 | CR.ITP_ITS ---
Diagnosis General Information Admitting Diagnosis: Heart Valve Repair Personal Learning Style:: Audio/Visual Barriers to Learning: No Barriers Stage of change r/t lifestyle modifications:: Contemplation Gave educational material for:: Treating Heart Disease, How The Heart Works, What it means to have Heart Disease, How Coronary Artery Disease is Diagnosed, Heart Procedures, What Heart Medications Do, Risk Factors & Modifications, Living an Active Life, Nutrition, Emotions & Heart Disease, Stress Management & Relaxation and Sleep Disorders & Heart Disease Education/Goals Cardiac Rehabilitation Goals Personal Goals: Initial Assessment: Improve management of stress and emotions, Improve energy level, Participate in home exercise program, Get back to work, or to resume activities faster, Improve muscle strength and endurance and Improve diet and eating habits (eat healthier) Scale for measuring improvement of personal goals Diagnosis & Disease Process Outcomes/Goals: Pt IDs own risk factors & lifestyle modifications by Session 10, Verbalizes symptoms of angina & response by session 3., Pt independently manages and Other Additional Outcomes/Goals: Plan/Interventions: Assist Pt to ID & engage in lifestyle modification to reduce CVD risk, Instruct on individual risk factors, Review symptoms of angina & emergency actions, Review secondary diagnosis & identify educational needs. and Other see comment 30 day Reassessments:: Not Met 30 day Reassessments:: Not Met 30 day Reassessments:: Not Met 30 day Reassessments:: Not Met Final Reassessments:: Not Met Safety Referral to Physical Therapy: No Referral to [facility] Case Management: No Fall Risk Assessed:: Yes Assistive Devices:: None Exercise - Initial Assessment Visit Date of Eval: 05/10/25 (initial eval ) Mets: Pre-: >3 METS for 30 minutes by discharge, >5 METS for 30 minutes by discharge, >7 METS for 30 minutes by discharge and Unable to meet goal due to: (see comment below) Physician Prescribed Exercise Modalities: Treadmill, Schwinn Airdyne AD-7, SciFit Stepper, SciFit Pro-II Ergometer and SciFit Lateral 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/week for 12 weeks [36 sessions] Intensity: 60-80% of age predicted maximum heart rate reserve Duration: 30 - 45 minutes Current METSs:: 3 Target Heart Rate:: 95-119 Resting Blood Pressure: 116/80 EKG Type: NSR w/ 1DAVB and incomplete RBBB Outcomes & Goals Goals:: Verbalizes understanding of THR, RPE & goal METS by session 6, Documents in home exercise log/reports 30 min aerobic 5 day/wk by DC, Demonstrates accurate pulse taking by DC and Other additional outcome/goals: see below Intervention & Plan Exercise Program Goals: Instruct on personal THR & RPE, Instruct on MET level & personal MET goal, Show patient to take own pulse /validate performance until accurate, Instruct on home exercise and Other additional plan/int Physical Activity Home Exercise Physical Activity - Home Exercise: Safe Exercise, Warm-up, Self-monitoring, Cool-Down, Home Exercise > 30 min Daily and Sitting Time <3 hours/daily Outcomes & Goals Outcomes/Goals: Demonstrates correct Warm-up/exercise Cool-Down (S3) if = 2.5 M ETs, Verbalizes symptoms of exercise intolerance by Session 3 (S3), Demonstrate safe equipment use (S3) & follows exercise prescrition (6) and Other: See below Intervention & Plan Plan/Intervention: Instruct warm-up & cool-down if exercising at > 2 METs, Instruct on symptoms of exercise intolerance & actions to take, Instruct & monitor on saf, Assess intial functional capacity & safety risk and Other See below Nutrition - Initial Assessment Program Goals Nutrition Program Goals Patient has diagnosis of Hyperlipidemia (ICD E78)?: Yes Visit Date of Eval: 05/10/25 (initial eval ) Cholesterol/Lipids (Other Core Measures) Determine presence & major risk factors that modify LDL goal: Cigarette smoking, Hypertension or hypertensive medication, Low HDL cholesterol <40 mg/dL*, Family history of premature CHD in Male < 55 years: female <65 yearsFa and Age men > 45 years; women >/= 55 years Outcomes/Goals: Pt IDs own risk factors & lifestyle modifications by Session 10, Verbalizes symptoms of angina & response by session 3., Pt independently manages and Other Additional Outcomes/Goals: Intervention/Plan: Advocate for lipid panel cholesterol medication if applicable, Instruct on personal lipid levels & lipid goals/NCEP guidelines, Instruct on cholesterol and Other additional plan/int Referral to dietitian:: No (Nutrition survey score of 3.) Diabetes (Other Core Measures) Diabetes Type: Not Applicable Weight Mgt (Other Care) Height: 6 ft Weight:: 178 lb BMI: 24.1 Diagnosis Overweight/Obesity BMI> 30% ICD-10 E66: No Diagnosis High BMI/Morbid Obesity BMI> 35% ICD-10 Z68: No Outcomes/Goals: Pt sets, maintains & shows weight loss goal & trend during rehab and Other additional outcomes/goals Intervention/Plan: Instruct on ideal BMI & set weight loss goal w/patient, Assist pt to ID & incorporate diet changes for weight loss by S9, Refer to Structured Weight Loss program as appropriate, Encourage goal of using 250- 300dcal per session for weight loss and Other additional plan/interventions Healthy Eating Habits Will attend diet classes:: Yes Outcomes/Goals:: Consume diet rich in vegs,fruits,whole grain/high fiber,fish,lean meat, Limit sat/trans fats,cholesterol & added salts & sugars and Other additional outcome/goals: Intervention/Plan:: Assess current eating habits and Other Additional plan/interventions Education Gave educational materials for:: Signs & symptoms of hypoglycemia, Signs & symptoms of hyperglycemia, Relate diabetes to coronary artery disease and Healthy eating Core - Initial Assessment Visit Date of Eval: 05/10/25 (initial eval ) Medication Compliance Preventative Medication(s):: Aspirin, Statin/lipid and Beta sylvia H/O mental health issues: depression, anxiety, or addiction?: No Doesn’t believe in the benefits of treatment?: No Believes medications are unnecessary or harmful?: No Has a concern about medication side effects?: No Expresses concern over the cost of medications?: No Outcomes/Goals: Verbalizes medications,desired effect & common side effects @ DC, Pt self-reports following medication regimen, Keeps card in wallet w/medications listed by DC and Other additional outcome/goals: Interventions/plans: Instruct on medication effects & side effects, Review medication list w/patient every two weeks, Instruct importance of taking meds as ordered & assist problem solving and Other additional Tobacco Use Tobacco Use: Non-smoker Hypertension Resting Blood Pressure:: 116/80 [place] [employer] Hypertension Guidelines Outcomes/Goals: Able to verbalize/achieve optimal blood pressure <130/80, Incorporates diet changes & exercise for blood pressure control by DC and Other additional outcomes/goals Interventions/plan: Instruct on optimal blood pressure, hypertension & medications, Instruct on effects of sodium, alcohol, stress, exercise &hypertension and Other additional plan/interventions Tobacco Cessation Referral Smoking Cessation Referral:: No Individual Education/Counseling:: No Education Schedule Given:: Yes Psychosocial - Initial Assess VIsit Date of Eval: 05/10/25 (initial eval) History of previous Mental disease:: No Psychosocial Test Tool Used:: [employer] Power QOL Cardiac and PHQ-9 Questionnaire phq-9 Severity See PHQ-9 Score: 2 Referral to Behavioral Health PS - Interventions: Yes: Attend Stress Management Classes Outcomes/Goals: See list Psychosocial Outcomes/Goals:: ID's personal stressors & 2 strategies to manage stress by discharge and Other Additional outcome/goals: Intervention/Plan: See List Interventions/Plan:: Assess stressors,coping strategies & signs of derpression on admission, Instruct/assist pt to develop coping & personal stress Mgt strategies, Refer to Behavioral Health if appropriate, Refer to Physician if appropriate, Instruct patient to recognize signs & symptoms of depression, Instruct patient to recog and Other additional plan/intervention Patient Health Questionnaire PHQ-9 Screening Initial Assessment: 1. Little interest or pleasure in doing things: Not at all 2. Feeling down, depressed, or hopeless: Not at all 3. Trouble falling or staying asleep, or sleeping too much: Not at all 4. Feeling tired or having little energy: Several days 5. Poor appetite or overeating: Not at all 6. Feeling bad about yourself -- or that you are a failure or have let yourself or your family down: Not at all 7. Trouble concentrating on things, such as reading the newspaper or watching television: Several days 8. Moving or speaking so slowly that other people could have noticed. Or the opposite - being so fidgety or restless that you have been moving around a lot more than usual: Not at all 9. Thoughts that you would be better off , or of hurting yourself in some way: Not at all How difficult have these problems made it for you to do your work, take care of things at home, or get along with other people?: Not difficult at all Total Score: 2 Nutrition Survey Nutrition Survey Initial: Have you lost >10 lbs over the past 2 months without trying?: No Are you following a special diet at home for diabetes, low fat, or low salt?: Yes Are you interested in meeting with a dietitian for help understanding your diet?: No Do you eat less than 3 meals a day?: Yes Do you eat fatty meats (gomez, sausage, ribs, etc), fried foods, desserts, large amounts of salad dressings, margarine, butter, or cheese most days?: No Do you have food allergies? 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 Exercise - 60-day Assessment Physician Prescribed Exercise Modalities: Treadmill, Schwinn Airdyne AD-7, SciFit Stepper, SciFit Pro-II Ergometer and SciFit Lateral 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 Exercise - 90-day Assessment Physician Prescribed Exercise Modalities: Treadmill, Schwinn Airdyne AD-7, SciFit Stepper, SciFit Pro-II Ergometer and SciFit Lateral 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 Exercise - Final/Discharge Physician Prescribed Exercise Modalities: Treadmill, Schwinn Airdyne AD-7, SciFit Stepper, SciFit Pro-II Ergometer and SciFit Lateral 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/week for 12 weeks [36 sessions] Intensity: 60-80% of age predicted maximum heart rate reserve Current METSs:: 3 Target Heart Rate:: 95-119 Nutrition - 30-Day Assessment Weight Mgt (Other Care) Height: 6 ft Weight:: 178 lb BMI: 24.1 Nutrition - 60-Day Assessment Weight Mgt (Other Care) Height: 6 ft Weight:: 178 lb BMI: 24.1 Core - Final Assessment Hypertension Resting Blood Pressure:: 116/80 [place] [employer] Hypertension Guidelines Core - 60-Day Assessment Hypertension Resting Blood Pressure:: 116/80 [place] [employer] Hypertension Guidelines Psychosocial - 30-Day Assess Referral to Behavioral Health PS - Interventions: Yes: Attend Stress Management Classes Psychosocial - 60-Day Assess Referral to Behavioral Health PS - Interventions: Yes: Attend Stress Management Classes Psychosocial - 90-Day Assess Referral to Behavioral Health PS - Interventions: Yes: Attend Stress Management Classes Psychosocial - Final Assessmen Psychosocial Test phq-9 Severity See PHQ-9 Score: 2 Referral to Behavioral Health PS - Interventions: Yes: Attend Stress Management Classes Nutrition - 90-Day Assessment Weight Mgt (Other Care) Height: 6 ft Weight:: 178 lb BMI: 24.1 Nutrition - Final Assessment Program Goals Patient has diagnosis of Hyperlipidemia (ICD E78)?: Yes Weight Mgt (Other Care) Height: 6 ft Weight:: 178 lb BMI: 24.1
[2025-05-10 08:12] VITALS: BMI 24.1
[2025-05-10 08:15] VITALS: BP 116/80; PULSE 83; O2SAT 97
[2025-05-10 08:42] VITALS: BP 116/80; BMI 24.1
== END | disposition home or self-care (01) ==
PROVIDERS: PCP Family Medicine; Referring Provider Internal Medicine Cardiovascular Disease; Visit Provider Internal Medicine Cardiovascular Disease
DX: R93.1 Abnormal findings on diagnostic imaging of heart and coronary circulation (principal); I48.91 Unspecified atrial fibrillation; I77.810 Thoracic aortic ectasia; I34.1 Nonrheumatic mitral (valve) prolapse; I97.89 Other postprocedural complications and disorders of the circulatory system, not elsewhere classified; R01.1 Cardiac murmur, unspecified; Z98.890 Other specified postprocedural states

== ENCOUNTER → 2025-05-25 | Outpatient (CLI) | payer BC, SELFPAY ==
[2025-05-10 08:42] VITALS: BMI 24.1
--- NOTE | 2025-05-25 13:55 | RAD_ITS ---
PROCEDURE: CHEST PA AND LATERAL 05/25/2025 REASON FOR EXAM: PLEURAL EFFUSION TECHNIQUE: Procedure Code: RADCXR Modality: DX Procedure: CHEST PA AND LATERAL COMPARISON: X-ray dated 05/10/2025 FINDINGS: Regressed right pleural effusion with minimal right pleural effusion at this time could be noted. No left pleural effusion.. Regressed previously noted right lower lung zone pneumonic consolidation. Stable faint pulmonary nodule. Stable cardiac size. Stable osseous structures. RAD/Chest PA and Lateral IMPRESSION: 1. Regressed pneumonic consolidation and right pleural effusion since the prior study. Reading Location: [facility]
[2025-05-25 15:09] LABS: Hematocrit 37.6 % (40-54); Hemoglobin 12.3 g/dL (13.0-16.5); Immature Granulocytes Count 0.010 X10^3/uL (0.0-0.0); Mean Corp Hgb Conc 32.7 g/dL (32-36); Mean Corpuscular Volume 89.1 fL (80-94); Mean Platelet Vol. 11.9 fl (6.2-12.0); NRBC Flagged by Analyzer 0 % (0-5); POSITIVE COUNT YES; RBC Distribution Width CV 12.2 % (11.6-14.6); RBC Distribution Width SD 39.2 fl (35.1-43.9); Red Blood Count 4.22 M/mm3 (4.6-6.2); White Blood Count 5.4 K/mm3 (4.4-11.0)
[2025-05-25 15:27] LABS: Differential Indicated SCAN CRITERIA MET
== END | disposition home or self-care (01) ==
LOC: LAB 13:41
PROVIDERS: PCP Family Medicine; Referring Provider Student in an Organized Health Care Education/Training Program; Visit Provider Student in an Organized Health Care Education/Training Program
DX: D64.9 Anemia, unspecified (principal); J90 Pleural effusion, not elsewhere classified
CPT/HCPCS: 36415; 71046; 85025

== ENCOUNTER 2025-05-27 13:00 | Outpatient (RCR) | payer BC, SELFPAY | END 2025-05-27 23:59 | LOC: CR 13:00 | PROVIDERS: PCP Family Medicine; Referring Provider Internal Medicine Cardiovascular Disease; Visit Provider Internal Medicine Cardiovascular Disease | DX: R93.1 Abnormal findings on diagnostic imaging of heart and coronary circulation (principal); Z98.890 Other specified postprocedural states; I77.810 Thoracic aortic ectasia; I34.0 Nonrheumatic mitral (valve) insufficiency; I97.89 Other postprocedural complications and disorders of the circulatory system, not elsewhere classified; I48.91 Unspecified atrial fibrillation; R01.1 Cardiac murmur, unspecified | CPT/HCPCS: 93798 ==

== ENCOUNTER 2025-06-22 13:00 | Outpatient (RCR) | payer BC, SELFPAY ==
--- NOTE | 2025-06-07 08:42 | PCM.CR.ITP ---
Exercise - Initial Assessment Visit Session #:: 9 Physician Prescribed Exercise Modalities: Treadmill, Schwinn Airdyne AD-7 and SciFit Lateral [employer] Nutrition - Initial Assessment Weight Mgt (Other Care) Height: 6 ft Weight:: 177 lb 8 oz BMI: 24.0 Psychosocial - Initial Assess Referral to Behavioral Health PS - Interventions: Yes: Attend Stress Management Classes Exercise - 30-day Assessment Visit Date of Eval: 06/07/25 Session #:: 9 Physician Prescribed Exercise Modalities: Treadmill, Schwinn Airdyne AD-7 and SciFit Lateral [employer] Frequency: 3x/week for 12 weeks [36 sessions] Intensity: 60-80% of age predicted maximum heart rate reserve Duration: 30 - 45 minutes Current METSs:: 6.8 Target Heart Rate:: 95-127 Current RPE:: 11-13 Maximum Excercise HR:: 133 Resting Blood Pressure: 132/80 Maximum Exercise Blood Pressure: 162/88 EKG Type: NSR -ST w/ 1st degree block, inverted Twave with rare PVC. Outcomes & Goals Goals:: Verbalizes understanding of THR, RPE & goal METS by session 6, Documents in home exercise log/reports 30 min aerobic 5 day/wk by DC, Demonstrates accurate pulse taking by DC and Other additional outcome/goals: see below Intervention & Plan Exercise Program Goals: Instruct on personal THR & RPE, Instruct on MET level & personal MET goal, Show patient to take own pulse /validate performance until accurate, Instruct on home exercise and Other additional plan/int Physical Activity Home Exercise Physical Activity - Home Exercise: Safe Exercise, Warm-up, Self-monitoring, Cool-Down, Home Exercise > 30 min Daily and Sitting Time <3 hours/daily Outcomes & Goals Outcomes/Goals: Demonstrates correct Warm-up/exercise Cool-Down (S3) if = 2.5 METs, Verbalizes symptoms of exercise intolerance by Session 3 (S3), Demonstrate safe equipment use (S3) & follows exercise prescrition (6) and Other: See below Intervention & Plan Plan/Intervention: Instruct warm-up & cool-down if exercising at > 2 METs, Instruct on symptoms of exercise intolerance & actions to take, Instruct & monitor on saf, Assess intial functional capacity & safety risk and Other See below 30-day Reassessments 30 day Reassessments:: Progressing Reassessment Notes & Comments:: Pt oriented to equipment. RPE explained to pt. Pt demonstrates understanding in his daily sessions. Exercise - 60-day Assessment Physician Prescribed Exercise Modalities: Treadmill, Schwinn Airdyne AD-7 and SciFit Lateral [place] Exercise - 90-day Assessment Physician Prescribed Exercise Modalities: Treadmill, Schwinn Airdyne AD-7 and SciFit Lateral [place] Exercise - Final/Discharge Physician Prescribed Exercise Modalities: Treadmill, Schwinn Airdyne AD-7 and SciFit Lateral [employer] Nutrition - 30-Day Assessment Program Goals Nutrition Program Goals Patient has diagnosis of Hyperlipidemia (ICD E78)?: Yes Visit Date of Eval: 06/07/25 Session #:: 9 Cholesterol/Lipids (Other Core Measures) Determine presence & major risk factors that modify LDL goal: Cigarette smoking, Hypertension or hypertensive medication, Low HDL cholesterol <40 mg/dL*, Family history of premature CHD in Male < 55 years: female <65 yearsFa and Age men > 45 years; women >/= 55 years Outcomes/Goals: Pt IDs own risk factors & lifestyle modifications by Session 10, Verbalizes symptoms of angina & response by session 3., Pt independently manages and Other Additional Outcomes/Goals: Intervention/Plan: Advocate for lipid panel cholesterol medication if applicable, Instruct on personal lipid levels & lipid goals/NCEP guidelines, Instruct on cholesterol and Other additional plan/int Referral to dietitian:: No (Nutrition survey score of 3.) Diabetes (Other Core Measures) Diabetes Type: Not Applicable Weight Mgt (Other Care) Height: 6 ft Weight:: 177 lb 8 oz BMI: 24.0 Diagnosis Overweight/Obesity BMI> 30% ICD-10 E66: No Diagnosis High BMI/Morbid Obesity BMI> 35% ICD-10 Z68: No Outcomes/Goals: Pt sets, maintains & shows weight loss goal & trend during rehab and Other additional outcomes/goals Intervention/Plan: Instruct on ideal BMI & set weight loss goal w/patient, Assist pt to ID & incorporate diet changes for weight loss by S9, Refer to Structured Weight Loss program as appropriate, Encourage goal of using 250-300dcal per session for weight loss and Other additional plan/interventions Healthy Eating Habits Will attend diet classes:: Yes Outcomes/Goals:: Consume diet rich in vegs,fruits,whole grain/high fiber,fish,lean meat, Limit sat/trans fats,cholesterol & added salts & sugars and Other additional outcome/goals: Intervention/Plan:: Assess current eating habits and Other Additional plan/interventions 30-day Reassessments:: Progressing Reassessment Notes & Comments:: Pt is at a healthy weight. 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 Heart healthy low sodium diet encouraged. Education Gave educational materials for:: Signs & symptoms of hypoglycemia, Signs & symptoms of hyperglycemia, Relate diabetes to coronary artery disease and Healthy eating Nutrition - 60-Day Assessment Weight Mgt (Other Care) Height: 6 ft Weight:: 177 lb 8 oz BMI: 24.0 Core - 30-Day Assessment Visit Date of Eval: 06/07/25 Session #:: 9 Medication Compliance Preventative Medication(s):: Aspirin, Statin/lipid and Beta sylvia H/O mental health issues: depression, anxiety, or addiction?: No Doesn’t believe in the benefits of treatment?: No Believes medications are unnecessary or harmful?: No Has a concern about medication side effects?: No Expresses concern over the cost of medications?: No Outcomes/Goals: Verbalizes medications,desired effect & common side effects @ DC, Pt self-reports following medication regimen, Keeps card in wallet w/medications listed by DC and Other additional outcome/goals: Interventions/plans: Instruct on medication effects & side effects, Review medication list w/patient every two weeks, Instruct importance of taking meds as ordered & assist problem solving and Other additional Tobacco Use Tobacco Use: Non-smoker Do you use smokeless tobacco?: No Hypertension Resting Blood Pressure:: 132/80 [place] [employer] Hypertension Guidelines Peak Exercise Blood Pressure:: 162/88 Outcomes/Goals: Able to verbalize/achieve optimal blood pressure <130/80, Incorporates diet changes & exercise for blood pressure control by DC and Other additional outcomes/goals Interventions/plan: Instruct on optimal blood pressure, hypertension & medications, Instruct on effects of sodium, alcohol, stress, exercise &hypertension and Other additional plan/interventions 30 day Reassessments:: Progressing Reassessment Notes & Comments:: Pt's BP's are within AHA normal limits on most days. Will continue to monitor and report to pt's physician if necessary. Tobacco Cessation Referral Smoking Cessation Referral:: No Individual Education/Counseling:: No Education Schedule Given:: Yes Psychosocial - 30-Day Assess VIsit Date of Eval: 06/07/25 Session #:: 9 History of previous Mental disease:: No Psychosocial Test Tool Used:: [employer] Power QOL Cardiac and PHQ-9 Questionnaire phq-9 Severity See PHQ-9 Score: 2 Referral to Behavioral Health PS - Interventions: Yes: Attend Stress Management Classes Outcomes/Goals: See list Psychosocial Outcomes/Goals:: ID's personal stressors & 2 strategies to manage stress by discharge and Other Additional outcome/goals: Intervention/Plan: See List Interventions/Plan:: Assess stressors,coping strategies & signs of derpression on admission, Instruct/assist pt to develop coping & personal stress Mgt strategies, Refer to Behavioral Health if appropriate, Refer to Physician if appropriate, Instruct patient to recognize signs & symptoms of depression, Instruct patient to recog and Other additional plan/intervention 30-day Reassessments: 30 day Reassessments:: Progressing Reassessment Notes & Comments:: Pt denies any psychosocial issues at this time. Pt to attend stress management class. Will reassess every 30 days. Psychosocial - 60-Day Assess Referral to Behavioral Health PS - Interventions: Yes: Attend Stress Management Classes Outcomes/Goals: See list Psychosocial Outcomes/Goals:: ID's personal stressors & 2 strategies to manage stress by discharge and Other Additional outcome/goals: Psychosocial - 90-Day Assess Referral to Behavioral Health PS - Interventions: Yes: Attend Stress Management Classes Psychosocial - Final Assessmen Referral to Behavioral Health PS - Interventions: Yes: Attend Stress Management Classes Nutrition - 90-Day Assessment Weight Mgt (Other Care) Height: 6 ft Weight:: 177 lb 8 oz BMI: 24.0 Nutrition - Final Assessment Weight Mgt (Other Care) Height: 6 ft Weight:: 177 lb 8 oz BMI: 24.0
[2025-06-07 08:51] VITALS: BP 132/80; BMI 24.0
== END 2025-06-26 23:59 ==
LOC: CR 13:00
PROVIDERS: PCP Family Medicine; Referring Provider Internal Medicine Cardiovascular Disease; Visit Provider Internal Medicine Cardiovascular Disease
DX: Z98.890 Other specified postprocedural states (principal); R93.1 Abnormal findings on diagnostic imaging of heart and coronary circulation; I77.810 Thoracic aortic ectasia; I34.1 Nonrheumatic mitral (valve) prolapse; I97.89 Other postprocedural complications and disorders of the circulatory system, not elsewhere classified; I48.91 Unspecified atrial fibrillation; R01.1 Cardiac murmur, unspecified
CPT/HCPCS: 93798

== ENCOUNTER 2025-06-27 12:31 | Emergency (ER) | payer BC, SELFPAY ==
[2025-06-07 08:51] VITALS: BMI 24.0
[2025-06-27 12:32] VITALS: BP 130/87; PULSE 62; RESP 18; TEMP 36.3; O2SAT 97; BMI 25.4
[2025-06-27 13:16] VITALS: BP 130/87; PULSE 62; RESP 18; TEMP 36.3; O2SAT 97
[2025-06-27] MEDS: Lidocaine 1% /Epi 1:100 (20ml) 20 ML Vial INFILT (13:18)
--- NOTE | 2025-06-27 14:52 | EDS_ITS ---
HPI History of Present Illness Chief Complaint: Laceration Informant: patient Narrative Narrative: 60-year-old male presenting to the emergency room with left index finger laceration. Patient is using the knife to cut open a plastic container when the injury occurred. He notes his tetanus is up-to-date having just had mitral valve repair. He is not on any anticoagulants. He denies any change in sensation or motion of the finger. Bleeding controlled. [facility] Medical History Systolic murmur Hyperlipidemia Multiple lipomas Abnormal echocardiogram Home Medications ?Medication ?Instructions ?Recorded ?Last Taken ?Type atorvastatin 10 mg tablet (Lipitor) 10 mg PO QDAY 01/25 02/18 Unknown History aspirin 81 mg tablet,delayed 81 mg PO QDAY 05/02/25 Un known History release (Adult Low Dose Aspirin) amoxicillin 500 mg capsule 2,000 mg (4 x 500 mg) PO .p rn #4 05/09/25 Unknown Rx caps acetaminophen 325 mg capsule 325 mg PO Q6H PRN fever o r pain 06/27/25 Unknown History furosemide 40 mg tablet 40 mg PO DAILY 06/27/25 Unkn own History metoprolol succinate 25 mg 12.5 mg (1/2 x 25 mg) PO QD AY #30 06/27/25 Unknown Rx tablet,extended release 24 hr tabs Allergy/AdvReac Type Severity Reaction Status Date / Time No Known Allergies Allergy Verified 06/27/25 12:32 Family History Grandfather Cancer Aunt Colon cancer Surgical History Hx of mitral valve repair (~02/2025) History of repair of anterior cruciate ligament of right knee Social History Smoking Status: Never smoker alcohol intake: current alcohol intake frequency: a few times a month substance use type: does not use ROS ROS ED Constitutional Constitutional ED: Denies chills, fever(s) or weight loss Eyes Eyes: Denies change in vision or diplopia ENT ENT ED: Denies ear pain, rhinorrhea or sore throat Cardiovascular Cardiovascular: Denies chest pain, orthopnea, palpitations or racing heartbeat Respiratory/Chest Respiratory/Chest: Denies cough, dyspnea or orthopnea Gastrointestinal Gastrointestinal: Denies abdominal pain, diarrhea, nausea or vomiting Genitourinary Genitourinary ED: Denies dysuria, hematuria or urinary frequency Musculoskeletal Musculoskeletal: Denies arthralgias or myalgias Integumentary Reports other Details: See history of present illness ; Denies abscess or rash Neurologic Neurologic: Denies headache(s), paresthesias or weakness Psychiatric Psychiatric: Denies anxiety, depression, suicidal ideation or suicidal thoughts Endocrine Endocrinology: Denies polydipsia, polyphagia or polyuria Allergic/Immunologic Allergic/Immunologic ED: Denies mouth swelling, tongue swelling or urticaria EXAM Physical Exam Const Vital Signs: 06/27/25 12:32 06/27/25 13:16 Temperature 97.4 F L 97.4 F L Temperature Source Oral Pulse Rate 62 62 Respiratory Rate 18 18 Blood Pressure 130/87 H 130/87 H Blood Pressure Mean 101 101 Pulse Ox 97 97 Oxygen Delivery Method Room Air Positive well nourished and well developed General Appearance ED: well developed and NAD HEENT Reports normocephalic, head/scalp atraumatic and moist mucous membranes Eyes PERRL and EOMs intact bilaterally Neck no lymphadenopathy, supple and no JVD Resp normal respiratory effort and clear to auscultation bilaterally Cardio regular rate, regular rhythm and no murmurs GI normal to inspection, nondistended, normoactive bowel sounds and non-tender Palpation: soft Back/Spine no CVA tenderness and normal ROM Extremity Extremity Narrative: See skin exam General Extremety ED: Negative for edema General Extremity: Negative for edema Neuro oriented x3 and CN's II-XII intact bilaterally Sensorium / Orientation: alert Motor Exam: strength 5/5 throughout Psych mental status grossly normal Mood & Affect: Negative for depressed or tearful Skin no rashes or lesions noted Skin Narrative: 3 cm linear laceration over the lateral aspect of the left index finger. Normal sensation distal to the injury. Normal tendon function. It is a full-thickness laceration. Bleeding controlled. MDM MDM MDM Narrative Medical decision making narrative: Differential diagnosis includes but not limited to laceration neurovascular injury tendon injury bony injury foreign body Wound was locally anesthetized with 1% lidocaine. Was washed with Shur-Clens and explored. No foreign bodies were noted. Neurovascularly was intact prior to local injection of lidocaine. Wound was closed using 5 simple interrupted 5- 0 Ethilon sutures. Local wound care discussed with patient stitches to be removed in 10 days return for worsening signs History & Record Review Discussion w/independent historian: Patient Discharge Plan Triage Chief Complaint: Laceration ED Provider: Huan Salinas Dx/Rx/DC Orders Clinical Impression: Finger laceration Instructions: ED Hand Laceration- All Closures Prescriptions: No Action atorvastatin [Lipitor] 10 mg tablet 10 mg PO QDAY aspirin [Adult Low Dose Aspirin] 81 mg tablet,delayed release (DR/EC) 81 mg PO QDAY amoxicillin 500 mg capsule 2,000 mg PO .prn Qty: 4 3RF Rx Instructions: PRN for dental care. take 1000mg 1 hour prior to dental procedures metoprolol succinate 25 mg tablet extended release 24 hr 12.5 mg PO QDAY Qty: 30 0RF acetaminophen 325 mg capsule 325 mg PO Q6H PRN (Reason: fever or pain) furosemide 40 mg tablet 40 mg PO DAILY Primary Care Provider: Keegan Thompson Referrals: Keegan Thompson MD [Primary Care Provider, Family Practice] - 10 Day for suture removal Print Language: Khmer Disposition Disposition: Home, Self Care Discharge Date/Time: 06/27/25 13:18
== END 2025-06-27 13:18 | disposition home or self-care (01) ==
LOC: ED 13:06
PROVIDERS: Emergency Provider Emergency Medicine; PCP Family Medicine; Visit Provider Emergency Medicine
DX: S61.211A Laceration without foreign body of left index finger without damage to nail, initial encounter (principal); W26.0XXA Contact with knife, initial encounter
CPT/HCPCS: 12002; 99284

== ENCOUNTER 2025-07-15 13:00 | Outpatient (RCR) | payer BC, SELFPAY ==
[2025-06-07 08:51] VITALS: BMI 24.0
--- NOTE | 2025-07-05 08:25 | PCM.CR.ITP ---
Exercise - Initial Assessment Physician Prescribed Exercise Modalities: Treadmill, Schwinn Airdyne AD-7 and SciFit Lateral Grain [employer] Or [employer]ure [employer] Manager Nutrition - Initial Assessment Weight Mgt (Other Care) Height: 6 ft Weight:: 182 lb 8 oz BMI: 24.7 Core - Initial Assessment Hypertension Resting Blood Pressure:: 118/84 [place] [employer] Hypertension Guidelines Psychosocial - Initial Assess Referral to Behavioral Health PS - Interventions: Yes: Attend Stress Management Classes Exercise - 30-day Assessment Physician Prescribed Exercise Modalities: Treadmill, Schwinn Airdyne AD-7 and SciFit Lateral [employer] Or [employer] Manager Exercise - 60-day Assessment Visit Date of Eval: 07/05/25 Session #:: 18 Physician Prescribed Exercise Modalities: Treadmill, Schwinn Airdyne AD-7 and SciFit Lateral [employer] Manager Frequency: 3x/week for 12 weeks [36 sessions] Intensity: 60-80% of age predicted maximum heart rate reserve Duration: 30 - 45 minutes Current METSs:: 8.1 Target Heart Rate:: 95-127 Current RPE:: 13 Maximum Excercise HR:: 133 Resting Blood Pressure: 100/66 Maximum Exercise Blood Pressure: 164/80 EKG Type: NSR to ST w/1st degree block, rare PAC, PVC Outcomes & Goals Goals:: Verbalizes understanding of THR, RPE & goal METS by session 6, Documents in home exercise log/reports 30 min aerobic 5 day/wk by DC, Demonstrates accurate pulse taking by DC and Other additional outcome/goals: see below Intervention & Plan Exercise Program Goals: Instruct on personal THR & RPE, Instruct on MET level & personal MET goal, Show patient to take own pulse /validate performance until accurate, Instruct on home exercise and Other additional plan/int Physical Activity Home Exercise Physical Activity - Home Exercise: Safe Exercise, Warm-up, Self-monitoring, Cool-Down, Home Exercise > 30 min Daily and Sitting Time <3 hours/daily Outcomes & Goals Outcomes/Goals: Demonstrates correct Warm-up/exercise Cool-Down (S3) if = 2.5 METs, Verbalizes symptoms of exercise intolerance by Session 3 (S3), Demonstrate safe equipment use (S3) & follows exercise prescrition (6) and Other: See below Intervention & Plan Plan/Intervention: Instruct warm-up & cool-down if exercising at > 2 METs, Instruct on symptoms of exercise intolerance & actions to take, Instruct & monitor on saf, Assess intial functional capacity & safety risk and Other See below 30-day Reassessments 30 day Reassessments:: Progressing Reassessment Notes & Comments:: Proper warm up and cool down demonstrated and explained to pt. Pt is able to return demonstration in their daily sessions. Exercise - 90-day Assessment Physician Prescribed Exercise Modalities: Treadmill, Schwinn Airdyne AD-7 and SciFit Lateral [place] Exercise - Final/Discharge Physician Prescribed Exercise Modalities: Treadmill, Schwinn Airdyne AD-7 and SciFit Lateral [place] Nutrition - 30-Day Assessment Weight Mgt (Other Care) Height: 6 ft Weight:: 182 lb 8 oz BMI: 24.7 Nutrition - 60-Day Assessment Program Goals Nutrition Program Goals Patient has diagnosis of Hyperlipidemia (ICD E78)?: Yes Visit Date of Eval: 07/05/25 (Nutrition survey score of 3.) Session #:: 18 Cholesterol/Lipids (Other Core Measures) Determine presence & major risk factors that modify LDL goal: Hypertension or hypertensive medication, Low HDL cholesterol <40 mg/dL*, Family history of premature CHD in Male < 55 years: female <65 yearsFa and Age men > 45 years; women >/= 55 years Outcomes/Goals: Pt IDs own risk factors & lifestyle modifications by Session 10, Verbalizes symptoms of angina & response by session 3., Pt independently manages and Other Additional Outcomes/Goals: Intervention/Plan: Advocate for lipid panel cholesterol medication if applicable, Instruct on personal lipid levels & lipid goals/NCEP guidelines, Instruct on cholesterol and Other additional plan/int Diabetes (Other Core Measures) Diabetes Type: Not Applicable Weight Mgt (Other Care) Height: 6 ft Weight:: 182 lb 8 oz BMI: 24.7 Diagnosis Overweight/Obesity BMI> 30% ICD-10 E66: No Diagnosis High BMI/Morbid Obesity BMI> 35% ICD-10 Z68: No Outcomes/Goals: Pt sets, maintains & shows weight loss goal & trend during rehab and Other additional outcomes/goals Intervention/Plan: Instruct on ideal BMI & set weight loss goal w/patient, Assist pt to ID & incorporate diet changes for weight loss by S9, Refer to Structured Weight Loss program as appropriate, Encourage goal of using 250-300dcal per session for weight loss and Other additional plan/interventions Healthy Eating Habits Will attend diet classes:: Yes Outcomes/Goals:: Consume diet rich in vegs,fruits,whole grain/high fiber,fish,lean meat, Limit sat/trans fats,cholesterol & added salts & sugars and Other additional outcome/goals: Intervention/Plan:: Assess current eating habits and Other Additional plan/interventions 30-day Reassessments:: Met Reassessment Notes & Comments:: Pt has attended nutrition class. Pt understands the benefits of a hearth healthy low sodium diet. Education Gave educational materials for:: Signs & symptoms of hypoglycemia, Signs & symptoms of hyperglycemia, Relate diabetes to coronary artery disease and Healthy eating Core - Final Assessment Hypertension Resting Blood Pressure:: 118/84 [employer] Hypertension Guidelines Core - 60-Day Assessment Visit Date of Eval: 07/05/25 Session #:: 18 Medication Compliance Preventative Medication(s):: Aspirin, Statin/lipid and Beta sylvia H/O mental health issues: depression, anxiety, or addiction?: No Doesn?t believe in the benefits of treatment?: No Believes medications are unnecessary or harmful?: No Has a concern about medication side effects?: No Expresses concern over the cost of medications?: No Outcomes/Goals: Verbalizes medications,desired effect & common side effects @ DC, Pt self-reports following medication regimen, Keeps card in wallet w/medications listed by DC and Other additional outcome/goals: Interventions/plans: Instruct on medication effects & side effects, Review medication list w/patient every two weeks, Instruct importance of taking meds as ordered & assist problem solving and Other additional Tobacco Use Tobacco Use: Non-smoker Hypertension Resting Blood Pressure:: 100/66 Resting Blood Pressure:: 118/84 [employer] Hypertension Guidelines Peak Exercise Blood Pressure:: 164/80 Outcomes/Goals: Able to verbalize/achieve optimal blood pressure <130/80, Incorporates diet changes & exercise for blood pressure control by DC and Other additional outcomes/goals Interventions/plan: Instruct on optimal blood pressure, hypertension & medications, Instruct on effects of sodium, alcohol, stress, exercise &hypertension and Other additional plan/interventions 30 day Reassessments:: Met Reassessment Notes & Comments:: Pt's BP's are within AHA normal limits. Will continue to monitor and report to pt's physician if necessary. Tobacco Cessation Referral Smoking Cessation Referral:: No Individual Education/Counseling:: No Education Schedule Given:: Yes Psychosocial - 30-Day Assess Referral to Behavioral Health PS - Interventions: Yes: Attend Stress Management Classes Outcomes/Goals: See list Psychosocial Outcomes/Goals:: ID's personal stressors & 2 strategies to manage stress by discharge and Other Additional outcome/goals: Psychosocial - 60-Day Assess VIsit Date of Eval: 07/05/25 Session #:: 18 History of previous Mental disease:: No Psychosocial Test Tool Used:: [employer] QOL Cardiac and PHQ-9 Questionnaire phq-9 Severity See PHQ-9 Score: 2 Referral to Behavioral Health PS - Interventions: Yes: Attend Stress Management Classes Outcomes/Goals: See list Psychosocial Outcomes/Goals:: ID's personal stressors & 2 strategies to manage stress by discharge and Other Additional outcome/goals: Intervention/Plan: See List Interventions/Plan:: Assess stressors,coping strategies & signs of derpression on admission, Instruct/assist pt to develop coping & personal stress Mgt strategies, Refer to Behavioral Health if appropriate, Refer to Physician if appropriate, Instruct patient to recognize signs & symptoms of depression, Instruct patient to recog and Other additional plan/intervention 30-day Reassessments: 30 day Reassessments:: Met Reassessment Notes & Comments:: Pt denies any psychosocial issues at this time. Pt to attending stress management class. Will reassess every 30 days. Psychosocial - 90-Day Assess Referral to Behavioral Health PS - Interventions: Yes: Attend Stress Management Classes Psychosocial - Final Assessmen Referral to Behavioral Health PS - Interventions: Yes: Attend Stress Management Classes Nutrition - 90-Day Assessment Weight Mgt (Other Care) Height: 6 ft Weight:: 182 lb 8 oz BMI: 24.7 Nutrition - Final Assessment Weight Mgt (Other Care) Height: 6 ft Weight:: 182 lb 8 oz BMI: 24.7
[2025-07-05 08:30] VITALS: BP 100/66
[2025-07-05 08:47] VITALS: BP 100/66; BP 118/84; BMI 24.7
== END 2025-07-27 23:59 ==
LOC: CR 13:00
PROVIDERS: PCP Family Medicine; Referring Provider Internal Medicine Cardiovascular Disease; Visit Provider Internal Medicine Cardiovascular Disease
DX: R93.1 Abnormal findings on diagnostic imaging of heart and coronary circulation (principal); I77.810 Thoracic aortic ectasia; I34.1 Nonrheumatic mitral (valve) prolapse; I97.89 Other postprocedural complications and disorders of the circulatory system, not elsewhere classified; I48.91 Unspecified atrial fibrillation; R01.1 Cardiac murmur, unspecified; Z98.890 Other specified postprocedural states
CPT/HCPCS: 93798